=== PATIENT | female | born 1945 | race Caucasian/White ===

== ENCOUNTER → 2016-04-13 | Outpatient (CLI) | payer BC ==
[~2016-04-13] MED LIST: CHOL100010 PO; ESOM20CA PO; LEVO100T7 PO; TAFL1DRO14 OPB
--- NOTE | 2016-04-13 12:29 | DIAGNOSTIC IMAGING REPORT ---
CHEST 2 VIEWS ROUTINE CLINICAL HISTORY: Productive cough COMPARISON STUDY: Chest radiograph August 09, 2012. FINDINGS: Lung volumes are normal. Lungs are clear. There is no pneumothorax or pleural effusion. Cardiac size is normal. Mediastinal contours are normal. There is no evidence of pulmonary edema. IMPRESSION: No acute cardiopulmonary findings. Electronically signed by: Gregory Russ M.D. 04/13/2016 12:27 PM Dictated Date/Time: 04/13/2016 12:27 PM
== END | disposition home or self-care (01) ==
LOC: C.RAD 11:24
PROVIDERS: ATTEND Internal Medicine
DX: R05 Cough (principal)

== ENCOUNTER → 2016-06-08 | Outpatient (CLI) | payer BC | END | disposition home or self-care (01) | LOC: C.RDSM 13:15 | PROVIDERS: ATTEND Orthopaedic Surgery Sports Medicine | DX: M25.562 Pain in left knee (principal) ==

== ENCOUNTER → 2016-08-16 | Outpatient (CLI) | payer BC | END | disposition home or self-care (01) | LOC: C.LABSPEC 15:14 | PROVIDERS: ATTEND Internal Medicine | DX: Z12.11 Encounter for screening for malignant neoplasm of colon (principal) ==

== ENCOUNTER → 2016-09-15 | Outpatient (CLI) | payer BC ==
[2016-09-15 13:24] LABS: BASO % 0.7 %; BASO ABS # 0.03 K/uL (0-0.2); COMPLETE YES; EOS % 2.3 %; HEMATOCRIT 41.8 % (37-47); LYMPH ABS # 1.33 K/uL (1.2-3.4); MEAN CELL VOLUME 92.1 fL (80-100); MEAN CORPUSCULAR HEMOGLOBIN 31.1 pg (25-34); MEAN CORPUSCULAR HGB CONC 33.7 g/dl (32-36); MEAN PLATELET VOLUME 9.5 fL (7.4-10.4); MONO % 8.1 %; NEUT % 58.9 %; PLATELET COUNT 291 K/uL (130-400); RED BLOOD COUNT 4.54 M/uL (4.2-5.4); WHITE BLOOD COUNT 4.43 K/uL (4.8-10.8)
[2016-09-15 13:37] LABS: ALB/GLOB RATIO 1.1 (0.9-2); ALKALINE PHOSPHATASE 86 U/L (45-117); ALT/SGPT 25 U/L (12-78); AST/SGOT 16 U/L (15-37); BLOOD UREA NITROGEN 8 mg/dl (7-18); BUN/CREATININE RATIO 10.9 (10-20); CARBON DIOXIDE 27 mmol/L (21-32); CHLORIDE 109 mmol/L (98-107); CHOLESTEROL 216 mg/dl (0-200); CHOLESTEROL/HDL RATIO 2.4; CREATININE 0.78 mg/dl (0.60-1.20); GLUCOSE 84 mg/dl (70-99); HDL CHOLESTEROL 89 mg/dl; MAGNESIUM 2.7 mg/dl (1.8-2.4); POTASSIUM 4.1 mmol/L (3.5-5.1); SODIUM 142 mmol/L (136-145)
[2016-09-15 13:42] LABS: THYROID STIMULATING HORMONE 0.646 uIu/ml (0.300-4.500); TRIGLYCERIDES 85 mg/dl (0-150); VERY LOW DENSITY LIPOPROT CALC 17 mg/dl
== END | disposition home or self-care (01) ==
LOC: C.LABSPEC 12:37
PROVIDERS: ATTEND Internal Medicine
DX: Z00.01 Encounter for general adult medical examination with abnormal findings (principal); M85.80 Other specified disorders of bone density and structure, unspecified site; K58.9 Irritable bowel syndrome, unspecified; E03.9 Hypothyroidism, unspecified

== ENCOUNTER → 2017-03-14 | Outpatient (CLI) | payer BC ==
--- NOTE | 2017-03-14 15:14 | DIAGNOSTIC IMAGING REPORT ---
LEFT KNEE MRI HISTORY: LEFT KNEE PAIN COMPARISON STUDY: Left knee 06/08/2016. Left knee MRI 02/20/2014. TECHNIQUE: Multiplanar multisequence MRI of the left knee was performed according to standard department protocol without the use of contrast. FINDINGS: Menisci: The medial meniscus is intact. Truncated appearance to the body of the lateral meniscus. The anterior horn of the lateral meniscus is diminutive. Ligaments: The anterior and posterior cruciate ligaments are intact. The medial and lateral collateral ligaments are normal in appearance. Extensor mechanism: The quadriceps tendon and patellar ligament are intact. Articular cartilage and bone: No fracture or dislocation within the knee. Normal marrow signal intensity throughout the visualized osseous structures. The medial and lateral compartment cartilage spaces are maintained. There is cartilage fraying and mild cartilage thinning of the patella. Joint effusion: None. Soft tissues: Small cyst adjacent to the posterior medial aspect of the medial meniscus which favors a ganglion cyst. This measures 6 mm. IMPRESSION: 1. Diminutive appearance to the anterior horn of the lateral meniscus. There is also a truncated appearance the body of the lateral meniscus. These could represent evidence for prior meniscal tears. However, a prior partial meniscectomy could also have a similar appearance. Clinical correlation recommended. 2. Mild cartilage thinning and cartilage fraying at the patellar facet consistent with degenerative change. 3. The medial meniscus appears intact. 4. Small cyst adjacent to the posterior medial aspect of the medial meniscus which favors a ganglion cyst. This measures 6 mm. No adjacent meniscal tear identified. Electronically signed by: Eliel Haley M.D. 03/14/2017 3:13 PM Dictated Date/Time: 03/14/2017 3:06 PM
== END | disposition home or self-care (01) ==
LOC: C.MRIBC 13:40
PROVIDERS: ATTEND Family Medicine
DX: M25.562 Pain in left knee (principal); M25.362 Other instability, left knee; M23.032 Cystic meniscus, other medial meniscus, left knee

== ENCOUNTER 2022-12-26 21:04 | Inpatient (IN) ==
[2022-12-26 21:37] LABS: Basophils # (auto) 0.06 K/uL (0.00-0.20); Basophils % (auto) 0.8 %; Eosinophils # (auto) 0.09 K/uL (0.00-0.50); Eosinophils % (auto) 1.3 %; Hematocrit (blood only) 42.3 % (37.0-47.0); Hemoglobin 14.2 g/dl (12.0-16.0); Immature Granulocytes # (auto) 0.02 K/uL (0.01-0.20); Immature Granulocytes % (auto) 0.3 %; Lymphocytes # (auto) 1.62 K/uL (1.20-3.40); Lymphocytes % (auto) 22.5 %; Mean Corpuscular Hemoglobin 30.1 pg (25.0-34.0); Mean Corpuscular Hgb Conc 33.6 g/dL (32.0-36.0); Mean Corpuscular Volume 89.6 fL (80.0-100.0); Monocytes # (auto) 0.51 K/uL (0.11-0.59); Monocytes % (auto) 7.1 %; Platelet Count 295 K/uL (130-400); RDW Coefficient of Variation 13.2 % (11.5-14.5); RDW Standard Deviation 43.4 fL (36.4-46.3); Red Blood Count 4.72 M/uL (4.20-5.40)
[2022-12-26] MEDS ORDERED: ONDANSETRON INJ 2 MG/ML 2 ML VIAL ONE (21:38)
[2022-12-26] MEDS ORDERED: DROPERIDOL 5 MG/2 ML VIAL IV STA (21:58)
[2022-12-26] MEDS ORDERED: ACETAMINOPHEN 1,000 MG/100 ML VIAL IV STA (22:01)
[2022-12-26 22:02] LABS: Albumin Globulin Ratio 1.5 (0.9-2); Albumin Level 4.3 gm/dl (3.4-5.0); BUN Creatinine Ratio 18.2 (10-20); Bilirubin,Total 0.5 mg/dl (0.2-1.0); Calcium 9.2 mg/dl (8.6-10.3); Creatinine Clr Calc Pharmacy 56.1 ml/min; Est GFR (African American) 86.9 ml/min; Globulin 2.9 gm/dl (2.5-4.0); Potassium 3.7 mmol/L (3.5-5.1); Total Protein 7.2 gm/dl (6.0-8.3); Troponin I High Sensitivity 6.8 pg/ml (0-14)
[2022-12-26 22:06] LABS: Partial Thromboplastin Ratio 0.8; Partial Thromboplastin Time 23.9 Seconds (21.0-31.0); Prothrombin Time 10.9 Seconds (9.0-12.0)
[2022-12-26 22:14] LABS: iSTAT Creatinine 0.7 mg/dl (0.6-1.3); iSTAT Hemoglobin 14.6 g/dl (12.0-16.0); iSTAT Ionized Calcium 1.12 mmol/l (1.12-1.32); iSTAT Potassium 3.8 mmol/L (3.3-5.0)
--- NOTE | 2022-12-26 22:15 | Emergency Department Note ---
Impression & Plan SBO (small bowel obstruction) ED Provider Note NAME: NOLBERTO NASSAR AGE: 77 SEX: F : 1945 ARRIVES VIA: Ambulance INFORMANT: Patient, ED PROVIDER(S): Hussein Sandoval MD CHIEF COMPLAINT: Abdominal pain HPI: This is a 77-year-old male with history of previous ischemic colitis, IBS presenting for severe pain. Patient states that 10 years ago she had ischemic colitis. She had no recent recurrence, no clot or stenosis causing her ischemic colitis. Otherwise today at approximately 3 PM she noticed acute abdominal pain, crampy, sharp. Began in the midepigastrium. Radiated to the back. Otherwise no chest pain, chest breath, fever or chills. She notes that she is in severe pain and that this feels somewhat similar to her previous ischemic colitis. No other medical problem. ROS: See above HPI for pertinent positives & negatives. A total of 10 systems reviewed and were otherwise negative. PAST MEDICAL HISTORY: See Below PAST SURGICAL HISTORY: See Below FAMILY HISTORY: See Below SOCIAL HISTORY: See Below HOME MEDICATIONS: See Below ALLERGIES: See Below VITALS: See Below PHYSICAL EXAMINATION: General: Writhing on the stretcher, retching Head: Normocephalic and atraumatic Eyes: Normal inspection, extraocular muscles intact, no conjunctival pallor Ear, nose, throat: Normal external exam Neck: Normal range of motion Respiratory: Patient is in no respiratory distress, lungs clear to auscultation bilaterally Cardiovascular: RRR without murmur appreciated GI: Soft, nontender Extremities: pulses intact with good cap refills, no LE pitting edema or calf tenderness Neuro: The patient awake and alert, appropriately conversive,no focal decifits Skin: Warm, dry, and intact MEDICAL DECISION MAKING: This is a 77-year-old female with history of previous ischemic colitis, IBS presenting for severe abdominal pain. Patient has pain out of proportion to exam, concern for recurrent ischemic colitis versus mesenteric ischemia versus possible dissection however low likelihood of a dissection. Patient is profusely vomiting, she states this may be reaction to the fentanyl she got in route. She states she is not tolerant of opiates due to these persistent nausea and vomiting. We will try Zofran. If not we will try droperidol for nausea. Patient is requesting nonopiate medication at this time, will give IV Tylenol. Will give IV Toradol as well as patient symptoms not improved with IV Tylenol. Lactic acid elevated at 2.9 Patient still feels nauseous despite Zofran and droperidol., No longer retching however. Patient's CAT scan comes back with no dissection or PE but does reveal SBO. Discussed with surgical GIGI Breaux who recommends medical admission and will run this case by attending physician. Otherwise will admit to medicine under Dr. Duvall. Triage Nursing notes reviewed. Prior medical records reviewed Vital Signs: reviewed and remarkable for no significant abnormalities Differential diagnosis: Mesenteric ischemia, ischemic colitis, SBO, pancreatitis, appendicitis, dissection, PE, ACS ER treatment provided: See below Diagnostics interpreted by me: ECG: ECG independently interpreted by me with normal sinus rhythm, rate of 63, normal axis, first-degree AV block, TN 210, normal QRS, normal QTc, no ST segment elevations consistent with STEMI criteriaardiac Monitoring: An order was placed for continuous cardiac monitoring. The monitor shows a rate of 75 with sinus rhythm. Laboratory studies: As stated above and show below. Imaging studies: See below. Radiographic imaging was reviewed by myself Consultation(s): None Critical Care Note: I have personally spent 35 minutes of critical care time in the direct management of this patient. This includes bedside care, interpretation of diagnostic studies, and testing, discussion with consultants, patient, and family members, and other required patient management activities. This 35 minutes is in excess of all separately billable procedures. Past Med/Surg History Medical History (Updated 12/27/22 @ 14:33 by Hussein Sandoval MD) Hypothyroidism (acquired) Piriformis syndrome Lumbar radiculopathy Poor vision Recurrent UTI Schatzki's ring History of ischemic colitis IBS (irritable bowel syndrome) Hypothyroidism History of Graves' disease GERD (gastroesophageal reflux disease) Glaucoma Thyroid disorder Surgical History (Updated 12/27/22 @ 13:20 by Kristel Caro RN) History of bowel resection (12/27/22) Exploratory Laparotomy with Small Bowel Resection(Not Applicable) - Oliver Blanco DO History of Achilles tendon repair Rt History of back surgery History of hysterectomy with unilateral oophorectomy History of esophagogastroduodenoscopy (EGD) History of colonoscopy History of thyroidectomy, subtotal Family History Other Nausea and vomiting after administration of anesthetic agent Social History Smoking Status: Never smoker Second Hand Exposure: No; Do You Dip or Chew Tobacco: No; Tobacco Cessation Education Requested by Patient: No Hx Alcohol Use: No Hx Substance Use: No Preferred Language: Martiniquais Communication Ability: Impaired Communication Ability Comment: Glaucoma Option Trader Required: No Beliefs That Will Affect Care: None Current Living Situation: Spouse Current Living Situation Comment: [place] Other Information That Helps Us Care for You: No Feels Safe at Home: Yes Safety Concerns: Feels Safe At This Time Assistive Devices: Glasses Allergies Allergies Allergy/AdvReac Type Severity Reaction Status Date / Time nickel Allergy Intermediate Rash Verified 12/26/22 22:39 timolol Allergy Unknown Unknown Verified 12/26/22 22:39 Beta-Blockers AdvReac Severe SEVERE Verified 12/26/22 22:39 (Beta-Adrenergic Bloc HYPOTENSION Opioids - Morphine Analogues AdvReac Intermediate Vomiting Verified 12/26/22 22:39 Home Meds Home Medications Medication Instructions Recorded Confirmed levothyroxine 100 mcg tablet 100 mcg PO QAM 01/20/19 12/26/22 (Synthroid) netarsudil 0.02 %-latanoprost 1 drp OPR HS 01/20/19 12/26/22 0.005 % eye drops (Rocklatan) tafluprost (PF) 0.0015 % eye drops 1 drp OPL HS 01/20/19 12/26/22 in a dropperette (Zioptan (PF)) acetaminophen 650 mg 1,300 mg PO HS 07/17/19 12/26/22 tablet,extended release (Tylenol 8 Hour) Previous Rx's Medication Instructions Recorded nitrofurantoin macrocrystal 100 mg 100 mg PO HS #90 caps 08/23/19 capsule Results & Data (ED) Vital Signs Vital Signs - 24 hr 12/26/22 20:54 12/26/22 21:11 12/26/22 21:12 Temperature 36.6 C Temperature Source Oral Pulse Rate 67 66 Pulse Rate [Apical] Pulse Rhythm Regular Pulse Strength Normal Respiratory Rate 19 Respiratory Effort / Characteristics Non-Labored Spontaneous Respiratory Depth Normal Respiratory Pattern Regular Blood Pressure 197/74 H Blood Pressure [Right Arm] Blood Pressure Mean 115 Blood Pressure Mean [Right Arm] Blood Pressure Position Lying Pulse Oximetry 100 100 Oxygen Delivery Method Room Air Room Air Sepsis Recent Fever Within 48 Hours No Sepsis New/Unexplained Change in Mental Status No Sepsis Action Taken by Nursing No Action Required 12/27/22 00:00 12/27/22 00:23 12/27/22 00:29 Temperature Temperature Source Pulse Rate 36 L Pulse Rate [Apical] 62 Pulse Rhythm Pulse Strength Respiratory Rate 20 Respiratory Effort / Characteristics Respiratory Depth Respiratory Pattern Blood Pressure Blood Pressure [Right Arm] 144/50 H Blood Pressure Mean Blood Pressure Mean [Right Arm] 81 Blood Pressure Position Pulse Oximetry 97 96 Oxygen Delivery Method Room Air Room Air Sepsis Recent Fever Within 48 Hours Sepsis New/Unexplained Change in Mental Status Sepsis Action Taken by Nursing Laboratory Data 12/27/22 06:15 12/27/22 06:15 Lab Results 12/26/22 12/26/22 12/26/22 Range/Units 21:21 21:50 22:00 WBC 7.20 (4.8-10.8) K/ul RBC 4.72 (4.20-5.40) M/uL Hgb 14.2 (12.0-16.0) g/dl POC Hgb 14.6 (12.0-16.0) g/dl Hct 42.3 (37.0-47.0) % POC Hct 43 (37-47) % MCV 89.6 (80.0-100.0) fL MCH 30.1 (25.0-34.0) pg MCHC 33.6 (32.0-36.0) g/dL RDW Std Deviation 43.4 (36.4-46.3) fL RDW Coeff of Ana Lilia 13.2 (11.5-14.5) % Plt Count 295 (130-400) K/uL MPV 9.0 L (9.4-12.4) fL Immature Gran % (Auto) 0.3 % Neut % (Auto) 68.0 % Lymph % (Auto) 22.5 % [place] % (Auto) 7.1 % Eos % (Auto) 1.3 % Baso % (Auto) 0.8 % Neut # (Auto) 4.90 (1.40-6.50) K/uL Lymph # (Auto) 1.62 (1.20-3.40) K/uL [place] # (Auto) 0.51 (0.11-0.59) K/uL Eos # (Auto) 0.09 (0.00-0.50) K/uL Baso # (Auto) 0.06 (0.00-0.20) K/uL Immature Gran # (Auto) 0.02 (0.01-0.20) K/uL PT 10.9 (9.0-12.0) Seconds INR 1.0 (0.9-1.1) APTT 23.9 (21.0-31.0) Seconds PTT Ratio 0.8 POC Sodium 136 (135-144) mmol/L Sodium 133 L (136-145) mmol/L POC Potassium 3.8 (3.3-5.0) mmol/L Potassium 3.7 (3.5-5.1) mmol/L POC Chloride 101 (101-112) mmol/L Chloride 101 (98-107) mmol/L Carbon Dioxide 22 (21-32) mmol/L POC Total CO2 23 L (24-31) mmol/L Anion Gap 10 (3-11) POC Anion Gap 16.0 (16-25) mmol/L POC BUN 12 (7-18) mg/dl BUN 14 (6-23) mg/dl Creatinine 0.77 (0.6-1.2) mg/dl POC Creatinine 0.7 (0.6-1.3) mg/dl Est Cr Clr Drug Dosing 56.1 ml/min Est GFR ( Amer) 86.9 ml/min Est GFR (Non-Af Amer) 75.0 ml/min BUN/Creatinine Ratio 18.2 (10-20) Glucose 133 H (70-99(Fasting)) mg/dl POC Glucose (other) 129 H (70-99) mg/dl Lactate 2.9 H* (0.4-2.0) mmol/L Calcium 9.2 (8.6-10.3) mg/dl POC Ioniz Calcium Annabella 1.12 (1.12-1.32) mmol/l Total Bilirubin 0.5 (0.2-1.0) mg/dl AST 17 (13-39) U/L ALT 10 (7-52) U/L Alkaline Phosphatase 97 (34-104) U/L Troponin I High Sens 6.8 (0-14) pg/ml Total Protein 7.2 (6.0-8.3) gm/dl Albumin 4.3 (3.4-5.0) gm/dl Globulin 2.9 (2.5-4.0) gm/dl Albumin/Globulin Ratio 1.5 (0.9-2) Lipase 29 (11-82) U/L 12/26/22 Range/Units 23:51 WBC (4.8-10.8) K/ul RBC (4.20-5.40) M/uL Hgb (12.0-16.0) g/dl POC Hgb (12.0-16.0) g/dl Hct (37.0-47.0) % POC Hct (37-47) % MCV (80.0-100.0) fL MCH (25.0-34.0) pg MCHC (32.0-36.0) g/dL RDW Std Deviation (36.4-46.3) fL RDW Coeff of Ana Lilia (11.5-14.5) % Plt Count (130-400) K/uL MPV (9.4-12.4) fL Immature Gran % (Auto) % Neut % (Auto) % Lymph % (Auto) % [place] % (Auto) % Eos % (Auto) % Baso % (Auto) % Neut # (Auto) (1.40-6.50) K/uL Lymph # (Auto) (1.20-3.40) K/uL [place] # (Auto) (0.11-0.59) K/uL Eos # (Auto) (0.00-0.50) K/uL Baso # (Auto) (0.00-0.20) K/uL Immature Gran # (Auto) (0.01-0.20) K/uL PT (9.0-12.0) Seconds INR (0.9-1.1) APTT (21.0-31.0) Seconds PTT Ratio POC Sodium (135-144) mmol/L Sodium (136-145) mmol/L POC Potassium (3.3-5.0) mmol/L Potassium (3.5-5.1) mmol/L POC Chloride (101-112) mmol/L Chloride (98-107) mmol/L Carbon Dioxide (21-32) mmol/L POC Total CO2 (24-31) mmol/L Anion Gap (3-11) POC Anion Gap (16-25) mmol/L POC BUN (7-18) mg/dl BUN (6-23) mg/dl Creatinine (0.6-1.2) mg/dl POC Creatinine (0.6-1.3) mg/dl Est Cr Clr Drug Dosing ml/min Est GFR ( Amer) ml/min Est GFR (Non-Af Amer) ml/min BUN/Creatinine Ratio (10-20) Glucose (70-99(Fasting)) mg/dl POC Glucose (other) (70-99) mg/dl Lactate 1.4 (0.4-2.0) mmol/L Calcium (8.6-10.3) mg/dl POC Ioniz Calcium Annabella (1.12-1.32) mmol/l Total Bilirubin (0.2-1.0) mg/dl AST (13-39) U/L ALT (7-52) U/L Alkaline Phosphatase (34-104) U/L Troponin I High Sens (0-14) pg/ml Total Protein (6.0-8.3) gm/dl Albumin (3.4-5.0) gm/dl Globulin (2.5-4.0) gm/dl Albumin/Globulin Ratio (0.9-2) Lipase (11-82) U/L Administered Medications Acetaminophen (Acetaminophen 1000 Mg/100 Ml Iv) 1,000 mg IV Q8H PRN PRN Reason: Pain or Fever Stop: 12/30/22 03:09 Last Admin: 12/27/22 04:16 Dose: 1,000 mg Documented By: DIO Lactated Ringer's (Lr) 1,000 mls @ 15 mls/hr IV .Q24H [facility] Stop: 01/26/23 10:14 Last Infusion: 12/27/22 10:53 Dose: Infused Documented By: Admin: 12/27/22 10:37 Dose: 15 mls/hr Documented By: ALBARO Miscellaneous (Netarsudil-Latanoprost [Rocklatan] - Order Awaiting Action) 1 each N/A QS [facility] Stop: 01/26/23 07:59 Last Admin: 12/27/22 07:35 Dose: Not Given Documented By: ES Miscellaneous (Tafluprost (Pf) [Zioptan (Pf)] - Order Awaiting Action) 1 each N/A QS [facility] Stop: 01/26/23 07:59 Last Admin: 12/27/22 07:35 Dose: Not Given Documented By: TRI Morphine Sulfate (Morphine Sulfate 2 Mg/Ml Carp) 2 mg IV Q4H PRN PRN Reason: Severe Pain (Scale 7, 8, 9,10) Stop: 01/10/23 05:01 Last Admin: 12/27/22 08:45 Dose: 2 mg Documented By: ALEXIS Ondansetron HCl (Ondansetron Inj 2 Mg/Ml 2 Ml Vial) 4 mg IV Q6H PRN PRN Reason: Nausea And Vomiting Stop: 01/26/23 00:40 Last Admin: 12/27/22 08:45 Dose: 4 mg Documented By: Admin: 12/27/22 00:58 Dose: 4 mg Documented By: PHAM Discontinued Medications Droperidol (Droperidol 5 Mg/2 Ml Vial) 1.25 mg IV ONE STA Stop: 12/26/22 21:59 Last Admin: 12/26/22 22:04 Dose: 1.25 mg Documented By: KAREN Acetaminophen (Ofirmev) 1,000 mg in 100 mls @ 400 mls/hr IV NOW STA Stop: 12/26/22 22:15 Last Infusion: 12/26/22 22:51 Dose: Infused Documented By: Admin: 12/26/22 22:11 Dose: 400 mls/hr Documented By: KAREN Sodium Chloride (Nss) 1,000 mls @ 999 mls/hr IV .Q1H1M ONE Stop: 12/27/22 01:03 Last Infusion: 12/27/22 01:40 Dose: Infused Documented By: Admin: 12/27/22 00:21 Dose: 999 mls/hr Documented By: PHAM Sodium Chloride (Nss) 1,000 mls @ 80 mls/hr IV .[id number] [facility] Stop: 01/26/23 00:44 Last Admin: 12/27/22 04:20 Dose: 80 mls/hr Documented By: DIO Piperacillin Sod/Tazobactam Sod (Zosyn) 4.5 gm in 100 mls @ 200 mls/hr IV 0415 ONE Stop: 12/27/22 04:44 Last Infusion: 12/27/22 04:54 Dose: Infused Documented By: Admin: 12/27/22 04:15 Dose: 200 mls/hr Documented By: DIO Ioversol (Optiray 320 500ml) 116 ml IV ONCE ONE Stop: 12/26/22 22:52 Last Admin: 12/26/22 22:52 Dose: 116 ml Documented By: DOMINICK Ketorolac Tromethamine (Ketorolac Tromethamine 15 Mg/Ml Vial) 10 mg IV NOW ONE Stop: 12/27/22 05:01 Last Admin: 12/27/22 05:30 Dose: 10 mg Documented By: DIO Morphine Sulfate (Morphine Sulfate 2 Mg/Ml Carp) 2 mg IV NOW STA Stop: 12/26/22 23:45 Last Admin: 12/27/22 00:18 Dose: 2 mg Documented By: PHAM Ondansetron HCl (Ondansetron Inj 2 Mg/Ml 2 Ml Vial) Confirm Administered Dose 4 mg .ROUTE .STK-MED ONE Stop: 12/26/22 21:39 Last Admin: 12/26/22 22:00 Dose: 4 mg Documented By: KAREN Imaging Data Radiologist's Impression: Chest X-Ray 12/26/22 21:17 XR chest 1V not portable CLINICAL HISTORY: Chest pain, nonspecific TECHNIQUE: Single frontal radiograph of the chest was obtained. Comparison: Comparison is made to chest radiograph 04/07/2009 FINDINGS: No lines and tubes are seen. Calcified aortic knob is seen. The lungs are clear. No evidence of pleural effusion or pneumothorax. IMPRESSION: No acute chest disease. ACT 112: Negative or not required by law. Electronically signed by: Kvng Castañeda M.D. 12/27/2022 7:40 AM Discharge Plan Visit Data Chief Complaint: Cardiac Assessment Stated Complaint: TEARING PAIN FROM CHEST TO BACK ED Provider: Hussein Sandoval Discharge Problem: SBO (small bowel obstruction) Patient Disposition: Admitted As Inpatient Discharge Instructions Interventions: ED Discharge Assessment Last Done: 12/27/22 03:31
[2022-12-26] MEDS ORDERED: OPTIRAY 320 500ml IV ONE (22:51)
--- NOTE | 2022-12-26 23:26 | CT Scan Report ---
Exam(s): CTA CHEST W/WO Contrast IV Amt: 116 ml optiray 320 EXAM: CT Angiography Chest Without and With Intravenous Contrast CLINICAL HISTORY: Reason for exam: Dissection. TECHNIQUE: Axial computed tomographic angiography images of the chest without and with intravenous contrast. CTDI is 16.98 mGy and DLP is 1523.9 mGy-cm. Automated exposure control was utilized for the study. A dose lowering technique was utilized adhering to the principles of ALARA. MIP reconstructed images were created and reviewed. CONTRAST: Patient received 116 ml optiray 320 of IV contrast COMPARISON: No relevant prior studies available. FINDINGS: Pulmonary arteries: Unremarkable. No pulmonary embolism. Aorta: No acute findings. No thoracic aortic aneurysm. Lungs: Unremarkable. No mass. No consolidation. Pleural space: Unremarkable. No significant effusion. No pneumothorax. Heart: Unremarkable. No cardiomegaly. No significant pericardial effusion. No evidence of RV dysfunction. Bones/joints: No acute fracture. No dislocation. Soft tissues: Unremarkable. Lymph nodes: Unremarkable. No enlarged lymph nodes. IMPRESSION: No acute findings. No evidence of thoracic aortic aneurysm or dissection. No pulmonary emboli. No acute cardiopulmonary process. Electronically signed by: Juve Link MD 12/26/22 23:25 PM
--- NOTE | 2022-12-26 23:32 | CT Scan Report ---
Exam(s): CTA ABDOMEN + PELVIS With Contrast IV Amt: 116 ml optiray 320 EXAM: CT Angiography Abdomen and Pelvis With Intravenous Contrast CLINICAL HISTORY: Reason for exam: dissection. TECHNIQUE: Axial computed tomographic angiography images of the abdomen and pelvis with intravenous contrast. CTDI is 16.98 mGy and DLP is 1523.9 mGy-cm. Automated exposure control was utilized for the study. A dose lowering technique was utilized adhering to the principles of ALARA. MIP reconstructed images were created and reviewed. CONTRAST: Patient received 116 ml optiray 320 of IV contrast COMPARISON: No relevant prior studies available. FINDINGS: VASCULATURE: Aorta: No acute findings. No abdominal aortic aneurysm. No dissection. Celiac trunk and mesenteric arteries: No acute findings. No occlusion or significant stenosis. Renal arteries: No acute findings. No occlusion or significant stenosis. Iliac arteries: No acute findings. No occlusion or significant stenosis. Lung bases: Unremarkable. No mass. No consolidation. ABDOMEN: Liver: Unremarkable. No mass. Gallbladder and bile ducts: Unremarkable. No calcified stones. No ductal dilation. Pancreas: Unremarkable. No ductal dilation. No mass. Spleen: Unremarkable. No splenomegaly. Adrenals: Unremarkable. No mass. Kidneys and ureters: Unremarkable. No hydronephrosis. No solid mass. Stomach and bowel: Multiple dilated loops of fluid-filled small bowel with some loose measuring over 3 cm in diameter. There is an abrupt transition in the mid pelvis just to the left of midline. This is consistent with small bowel obstruction. No bowel wall thickening. Diverticulosis without diverticulitis. PELVIS: Appendix: No findings to suggest acute appendicitis. Bladder: Unremarkable. No mass. Reproductive: Unremarkable as visualized. ABDOMEN and PELVIS: Intraperitoneal space: Unremarkable. Small amount of free fluid. No free air. Bones/joints: No acute fracture. No dislocation. Soft tissues: Unremarkable. Lymph nodes: Unremarkable. No enlarged lymph nodes. IMPRESSION: Small bowel obstruction. No evidence of abdominal aortic aneurysm or dissection. Electronically signed by: Juve Link MD 12/26/22 23:32 PM
[2022-12-26] MEDS ORDERED: MoRPHine SULFATE 2 MG/ML CARP IV STA (23:44)
[2022-12-27] MEDS ORDERED: SODIUM CHLORIDE 0.9% 1,000 ML IV ONE (00:03)
--- NOTE | 2022-12-27 00:30 | Surgery Consultation ---
Date of Consultation December 27, 2022 Assessment & Plan (1) Small bowel obstruction: I discussed with the treating emergency room physician and the patient is going to be admitted on the hospitalist service. From a surgical perspective we recommend proceeding as follows: Provide analgesics Provide antiemetics Provide IV fluid for hydration Follow serial labs I discussed the potential of using an NG tube with this patient. She is uncertain if she would like to try this modality. At the present time her abdomen is soft and nondistended. She also has not had any emesis in over an hour. In addition, during my encounter with the patient she was able to pass a small amount of flatus. We therefore have elected to hold on placing an NG tube at this time but I did discuss with the patient if she has any worsening of her clinical exam or has persistent nausea and vomiting we will need to rethink the use of this modality and she expressed her understanding. I suspect the patient's small bowel obstruction is likely on the basis of adhesions from previous surgery and outlined with her the rationale for treatment with conservative treatment plan as noted above and she expressed her understanding. At the present time the patient is noted to have no leukocytosis or fever. She also does not have tachycardia or evidence of acute kidney injury. Her lactic acid level has normalized. Additional recommendations will be forthcoming based on her clinical course as it unfolds Supervising Physician Co-Signing Physician Notes I personally saw and evaluated the patient with Arsh Breaux PA-C and agree with the assessment and plan. 77-year-old female with adhesive small bowel obstruction She is being admitted to the medical service We will keep her n.p.o. No need for NG tube at this time Her CT images and results were personally viewed and interpreted by myself, no definitive signs at this point of ischemic bowel We will follow along and monitor her symptoms and abdominal exam History of Present Illness Reason for Consultation: . Small bowel obstruction History of Present Illness This is a 77-year-old female who presented the emergency department [facility] secondary to sudden onset of upper abdominal pain. She notes that the pain is located primarily just superior to her umbilicus in the epigastric area with some radiation to her back. She notes that the pain is improved if she lies still and also improved somewhat after she has a bout of emesis. She notes that the pain is worse with certain movements. She has not had any fevers, shakes, or chills. Patient further reports that she has had a history of ischemic colitis approximately 10 years ago that was treated successfully in a conservative manner without any surgical intervention. She notes that she had a colonoscopy after she recovers from her ischemic colitis and to the best of her knowledge there were no concerning findings on this study. Patient reports that she did have a bowel movement at approximate 2:00 PM today which preceded the onset of her abdominal pain and notes that the bowel movement was normal for her. She says she has been passing a small amount of flatus. She has had prior abdominal surgery in the form of a hysterectomy. She notes that she has never had a small bowel obstruction in the past Since arrival to the hospital this patient has had labs and imaging which independent reviewed. A chest x-ray did not show any evidence of pleural effusions or pneumonia. She also had a CT angiogram of her chest abdomen pelvis. The chest portion of this study did not show any evidence of aortic aneurysm or dissection. There is also no evidence of pulmonary emboli. The abdominal portion of this study showed the patient had multiple dilated loops of fluid-filled small bowel with abrupt transition point in the mid pelvis just to the left of midline consistent with a small bowel obstruction. There is no bowel wall thickening. There is no intraperitoneal free air. There is a small amount of free fluid. Labs include a CBC her white blood cell count, hemoglobin, hematocrit, platelet count were normal. Coagulation studies were noted to be normal. Chemistry profile showed sodium was 133 with a potassium of 3.7. BUN and creatinine were both normal. Patient initially had a lactic acid level that was elevated at 2.9 and this was checked approximately 2 hours later which had normalized to 1.4. There is no elevation of patient's LFTs or lipase. At the time of my interview patient noted that she continued to have some abdominal pain but was in no distress Allergies Allergy/AdvReac Type Severity Reaction Status Date / Time nickel Allergy Intermediate Rash Verified 12/26/22 22:39 timolol Allergy Unknown Unknown Verified 12/26/22 22:39 Beta-Blockers AdvReac Severe SEVERE Verified 12/26/22 22:39 (Beta-Adrenergic Bloc HYPOTENSION Opioids - Morphine Analogues AdvReac Intermediate Vomiting Verified 12/26/22 22:39 Home Medications Medication Instructions Recorded Confirmed Type levothyroxine 100 mcg tablet 100 mcg PO QAM 01/20/19 12/26/22 History (Synthroid) netarsudil 0.02 %-latanoprost 1 drp OPR HS 01/20/19 12/26/22 History 0.005 % eye drops (Rocklatan) tafluprost (PF) 0.0015 % eye drops 1 drp OPL HS 01/20/19 12/26/22 History in a dropperette (Zioptan (PF)) acetaminophen 650 mg 1,300 mg PO HS 07/17/19 12/26/22 History tablet,extended release (Tylenol 8 Hour) nitrofurantoin macrocrystal 100 mg 100 mg PO HS #90 caps 08/23/19 12/26/22 Rx capsule Patient History Medical History (Updated 12/27/22 @ 03:52 by Az Hargrove MD) Hypothyroidism (acquired) Piriformis syndrome Lumbar radiculopathy Poor vision Recurrent UTI Schatzki's ring History of ischemic colitis IBS (irritable bowel syndrome) Hypothyroidism History of Graves' disease GERD (gastroesophageal reflux disease) Glaucoma Thyroid disorder Surgical History History of Achilles tendon repair Rt History of back surgery History of hysterectomy with unilateral oophorectomy History of esophagogastroduodenoscopy (EGD) History of colonoscopy History of thyroidectomy, subtotal Family History Other Nausea and vomiting after administration of anesthetic agent Social History Smoking Status: Never smoker Second Hand Exposure: No; Do You Dip or Chew Tobacco: No; Hx Alcohol Use: No Hx Substance Use: No Preferred Language: Armenian Communication Ability: Impaired Communication Ability Comment: Glaucoma 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: No Beliefs That Will Affect Care: None Current Living Situation: Spouse Current Living Situation Comment: Ami Feels Safe at Home: Yes Assistive Devices: Glasses Review of Systems Constitutional: no fever and no chills Eyes: + corrective lenses Ear, Nose, Mouth, Throat: no hearing loss Respiratory: no dyspnea Cardiovascular: no chest pain Gastrointestinal: as per Subjective / HPI Genitourinary: no dysuria Musculoskeletal: no back pain Integumentary: no rash Neurologic: no localized weakness Physical Exam Constitutional: well developed and well nourished; no acute distress Eyes: no conjunctival abnormality Wears glasses ENMT: Ears: no hearing impairment and no external ear abnormality Mouth: no oropharynx abnormality Mucous membranes are moist Neck: trachea midline Respiratory: normal respiratory effort; no respiratory distress and no labored breathing Cardiovascular: Rate/Rhythm: regular rate and regular rhythm Vessels: dorsalis pedis pulses present and radial pulses present Gastrointestinal (Abdomen): Patient's abdomen is soft and it is nondistended. It is nonrigid. Bowel sounds are present and normoactive. There is no rebound tenderness or guarding. Patient did have pain with palpation greatest in the periumbilical region patient did have a well-healed vertical scar inferior to her umbilicus to that she noted is from a previous hysterectomy Musculoskeletal: No calf tenderness. No lower extremity edema Skin: no rashes Neurologic: Patient is able move all 4 extremities and follows simple commands without noted focal deficit Psychiatric: A+Ox3, euthymic affect Results & Data Vital Signs (Past 12 Hours) Vital Signs Temp Pulse Resp BP Pulse Ox O2 Del Method 12/26/22 21:12 66 12/26/22 21:11 36.6 C 67 19 197/74 H 100 Room Air 12/26/22 20:54 100 Room Air PG Care Time/CCT Total # of Minutes Spent Total Time Spent with Patient: Total time spent is greater than 50% in coordination of care (as documented) at patient's floor/unit and/or counseling patient: Coding Level of Care Code 59829 INT INP/OBS CARE 3/75MIN Diagnoses Small bowel obstruction K56.609
[2022-12-27] MEDS ORDERED: SODIUM CHLORIDE 0.9% 1,000 ML IV SCH (00:45)
--- NOTE | 2022-12-27 00:57 | History & Physical Report ---
Date of Service December 27, 2022 Assessment & Plan (1) Small bowel obstruction: (2) Hypothyroidism (acquired): (3) History of ischemic colitis: Plan Small bowel obstruction/history of ischemic colitis- NPO Zofran 4 mg IV every 6 hours as needed Pantoprazole 40 mg IV daily Zosyn 4.5 g IV every 8 hours NSS at 80 mils per hour Acetaminophen 1 g IV every 8 hours as needed for mild pain or fever No signs of ischemia on CT CTA chest negative for PE General surgery has already seen the patient while in the ED Elevated blood pressure without diagnosis of hypertension- Hydralazine 10 mg IV every 4 hours as needed for systolic blood pressure greater than 160 Hypothyroidism- Okay to hold levothyroxine for couple days until no longer having nausea and vomiting History of Present Illness Chief Complaint: The patient presents to the emergency department with complaint of acute onset of crampy sharp abdominal pain around 3:00 this afternoon, that began in her epigastric area and radiated through to her back. Primary Care Provider: Carlos Soliman MD The patient is a 77-year-old female with a past medical history including p iriformis syndrome, glaucoma, lumbar radiculopathy, gross hematuria, urine tract infection, hypothyroidism and history of ischemic colitis. She presents to the emergency department with symptoms as noted above, which she reports are similar to her previous episode of ischemic colitis about 10 years ago. She did have a small volume of emesis while in the emergency department this evening. She de nies any recent travels or sick exposures. She denies any recent use of antibiotics or new supplements Allergies Allergy/AdvReac Type Severity Reaction Status Date / Time nickel Allergy Intermediate Rash Verified 12/26/22 22:39 timolol Allergy Unknown Unknown Verified 12/26/22 22:39 Beta-Blockers AdvReac Severe SEVERE Verified 12/26/22 22:39 (Beta-Adrenergic Bloc HYPOTENSION Opioids - Morphine Analogues AdvReac Intermediate Vomiting Verified 12/26/22 22:39 Home Medications Medication Instructions Recorded Confirmed Type levothyroxine 100 mcg tablet 100 mcg PO QAM 01/20/19 12/26/22 History (Synthroid) netarsudil 0.02 %-latanoprost 1 drp OPR HS 01/20/19 12/26/22 History 0.005 % eye drops (Rocklatan) tafluprost (PF) 0.0015 % eye drops 1 drp OPL HS 01/20/19 12/26/22 History in a dropperette (Zioptan (PF)) acetaminophen 650 mg 1,300 mg PO HS 07/17/19 12/26/22 History tablet,extended release (Tylenol 8 Hour) nitrofurantoin macrocrystal 100 mg 100 mg PO HS #90 caps 08/23/19 12/26/22 Rx capsule Past Med/Surg History Medical History (Updated 12/27/22 @ 03:52 by Az Hargrove MD) Hypothyroidism (acquired) Piriformis syndrome Lumbar radiculopathy Poor vision Recurrent UTI Schatzki's ring History of ischemic colitis IBS (irritable bowel syndrome) Hypothyroidism History of Graves' disease GERD (gastroesophageal reflux disease) Glaucoma Thyroid disorder Surgical History History of Achilles tendon repair Rt History of back surgery History of hysterectomy with unilateral oophorectomy History of esophagogastroduodenoscopy (EGD) History of colonoscopy History of thyroidectomy, subtotal Family History Other Nausea and vomiting after administration of anesthetic agent Social History Smoking Status: Never smoker Second Hand Exposure: Yes (in the workplace); Do You Dip or Chew Tobacco: No; Hx Alcohol Use: Yes Hx Substance Use: No Preferred Language: Latvian Communication Ability: Effective Primary Special Educator Required: No Beliefs That Will Affect Care: None Current Living Situation: Spouse Feels Safe at Home: Yes Assistive Devices: Glasses and Walker Review of Systems Review of Systems: The patient denies palpitations, shortness of breath, dyspnea on exertion, cough, lower extremity swelling, sore throat, fevers, chills, sweats, diarrhea , constipation, blood in urine or stool, dysuria, urinary frequency or urgency, lightheadedness, dizziness, headache, memory loss, loss of consciousness, rash, abnormal bruising or bleeding, imbalance, focal or generalized weakness, numbness or tingling in arms or legs, generalized arthralgias or myalgias, back or neck pain, or night sweats. The review of systems is otherwise negative other than for that already noted above, and at least 10 systems have been reviewed. Physical Exam Physical Exam: The patient is awake, alert and oriented 3, well developed and well nourished, normocephalic and atraumatic, lying in bed and in no acute distress. HEENT--PERRL, EOMI, mucous membranes and oropharynx dry. Neck--supple. No JVD. No bruits. Thyroid normal, trachea midline, no adenopathy. Heart--normal S1 and S2. No murmurs, rubs or gallops. Lungs--clear bilaterally, no respiratory distress, no accessory muscle use. Abdomen--normal bowel sounds and soft. Generalized tenderness. Nondistended, no hernias or masses, no organomegaly. Extremities--no cyanosis or clubbing. No edema. Dermatologic--normal skin turgor, normal color, no abnormal lymph nodes, no ra sh. Neurologic--cranial nerves II through XII grossly intact. Rheumatologic--normal range of motion. Psychiatric--normal affect. Results & Data Results & Data Vital Signs (Past 12 Hours) Vital Signs Temp Pulse Pulse Resp BP BP Pulse Ox 12/27/22 00:29 96 12/27/22 00:23 36 L 12/27/22 00:00 62 20 144/50 H 97 12/26/22 21:12 66 12/26/22 21:11 36.6 C 67 19 197/74 H 100 12/26/22 20:54 100 O2 Del Method 12/27/22 00:29 Room Air 12/27/22 00:23 12/27/22 00:00 Room Air 12/26/22 21:12 12/26/22 21:11 Room Air 12/26/22 20:54 Room Air Laboratory Results Laboratory Results WBC 7.20 K/ul (4.8-10.8) 12/26/22 21:21 RBC 4.72 M/uL (4.20-5.40) 12/26/22 21:21 Hgb 14.2 g/dl (12.0-16.0) 12/26/22 21:21 POC Hgb 14.6 g/dl (12.0-16.0) 12/26/22 22:00 Hct 42.3 % (37.0-47.0) 12/26/22 21:21 POC Hct 43 % (37-47) 12/26/22 22:00 MCV 89.6 fL (80.0-100.0) 12/26/22 21: MCH 30.1 pg (25.0-34.0) 12/26/22 21: MCHC 33.6 g/dL (32.0-36.0) 12/26/22 21: RDW Std Deviation 43.4 fL (36.4-46.3) 12/26/22 21: RDW Coeff of Ana Lilia 13.2 % (11.5-14.5) 12/26/22 21: Plt Count 295 K/uL (130-400) 12/26/22 21: MPV 9.0 fL (9.4-12.4) L 12/26/22 21: Immature Gran % (Auto) 0.3 % 12/26/22 21: Neut % (Auto) 68.0 % 12/26/22 21: Lymph % (Auto) 22.5 % 12/26/22 21: [place] % (Auto) 7.1 % 12/26/22 21: Eos % (Auto) 1.3 % 12/26/22 21: Baso % (Auto) 0.8 % 12/26/22 21: Neut # (Auto) 4.90 K/uL (1.40-6.50) 12/26/22 21: Lymph # (Auto) 1.62 K/uL (1.20-3.40) 12/26/22 21: [place] # (Auto) 0.51 K/uL (0.11-0.59) 12/26/22 21: Eos # (Auto) 0.09 K/uL (0.00-0.50) 12/26/22 21: Baso # (Auto) 0.06 K/uL (0.00-0.20) 12/26/22 21: Immature Gran # (Auto) 0.02 K/uL (0.01-0.20) 12/26/22 21: PT 10.9 Seconds (9.0-12.0) 12/26/22 21: INR 1.0 (0.9-1.1) 12/26/22 21: APTT 23.9 Seconds (21.0-31.0) 12/26/22 21: PTT Ratio 0.8 12/26/22 21:21 POC Sodium 136 mmol/L (135-144) 12/26/22 22:00 Sodium 133 mmol/L (136-145) L 12/26/22 21:21 POC Potassium 3.8 mmol/L (3.3-5.0) 12/26/22 22:00 Potassium 3.7 mmol/L (3.5-5.1) 12/26/22 21:21 POC Chloride 101 mmol/L (101-112) 12/26/22 22:00 Chloride 101 mmol/L (98-107) 12/26/22 21:21 Carbon Dioxide 22 mmol/L (21-32) 12/26/22 21:21 POC Total CO2 23 mmol/L (24-31) L 12/26/22 22:00 Anion Gap 10 (3-11) 12/26/22 21:21 POC Anion Gap 16.0 mmol/L (16-25) 12/26/22 22:00 POC BUN 12 mg/dl (7-18) 12/26/22 22:00 BUN 14 mg/dl (6-23) 12/26/22 21:21 Creatinine 0.77 mg/dl (0.6-1.2) 12/26/22 21: POC Creatinine 0.7 mg/dl (0.6-1.3) 12/26/22 22:00 Est Cr Clr Drug Dosing 56.1 ml/min 12/26/22 21:21 Est GFR ( Amer) 86.9 ml/min 12/26/22 21:21 Est GFR (Non-Af Amer) 75.0 ml/min 12/26/22 21:21 BUN/Creatinine Ratio 18.2 (10-20) 12/26/22 21:21 Glucose 133 mg/dl (70-99(Fasting)) H 12/26/22 21:21 POC Glucose (other) 129 mg/dl (70-99) H 12/26/22 22:00 Lactate 1.4 mmol/L (0.4-2.0) 12/26/22 23:51 Calcium 9.2 mg/dl (8.6-10.3) 12/26/22 21:21 POC Ioniz Calcium Annabella 1.12 mmol/l (1.12-1.32) 12/26/22 22:00 Total Bilirubin 0.5 mg/dl (0.2-1.0) 12/26/22 21:21 AST 17 U/L (13-39) 12/26/22 21:21 ALT 10 U/L (7-52) 12/26/22 21:21 Alkaline Phosphatase 97 U/L (34-104) 12/26/22 21:21 Troponin I High Sens 6.8 pg/ml (0-14) 12/26/22 21:21 Total Protein 7.2 gm/dl (6.0-8.3) 12/26/22 21:21 Albumin 4.3 gm/dl (3.4-5.0) 12/26/22 21:21 Globulin 2.9 gm/dl (2.5-4.0) 12/26/22 21:21 Albumin/Globulin Ratio 1.5 (0.9-2) 12/26/22 21:21 Lipase 29 U/L (11-82) 12/26/22 21:21 Impressions Abdomen/Pelvis CTA 12/26/22 21:39 Exam(s): CTA ABDOMEN + PELVIS With Contrast IV Amt: 116 ml optiray 320 EXAM: CT Angiography Abdomen and Pelvis With Intravenous Contrast CLINICAL HISTORY: Reason for exam: dissection. TECHNIQUE: Axial computed tomographic angiography images of the abdomen and pelvis with intravenous contrast. CTDI is 16.98 mGy and DLP is 1523.9 mGy-cm. Automated exposure control was utilized for the study. A dose lowering technique was utilized adhering to the principles of ALARA. MIP reconstructed images were created and reviewed. CONTRAST: Patient received 116 ml optiray 320 of IV contrast COMPARISON: No relevant prior studies available. FINDINGS: VASCULATURE: Aorta: No acute findings. No abdominal aortic aneurysm. No dissection. Celiac trunk and mesenteric arteries: No acute findings. No occlusion or significant stenosis. Renal arteries: No acute findings. No occlusion or significant stenosis. Iliac arteries: No acute findings. No occlusion or significant stenosis. Lung bases: Unremarkable. No mass. No consolidation. ABDOMEN: Liver: Unremarkable. No mass. Gallbladder and bile ducts: Unremarkable. No calcified stones. No ductal dilation. Pancreas: Unremarkable. No ductal dilation. No mass. Spleen: Unremarkable. No splenomegaly. Adrenals: Unremarkable. No mass. Kidneys and ureters: Unremarkable. No hydronephrosis. No solid mass. Stomach and bowel: Multiple dilated loops of fluid-filled small bowel with some loose measuring over 3 cm in diameter. There is an abrupt transition in the mid pelvis just to the left of midline. This is consistent with small bowel obstruction. No bowel wall thickening. Diverticulosis without diverticulitis. PELVIS: Appendix: No findings to suggest acute appendicitis. Bladder: Unremarkable. No mass. Reproductive: Unremarkable as visualized. ABDOMEN and PELVIS: Intraperitoneal space: Unremarkable. Small amount of free fluid. No free air. Bones/joints: No acute fracture. No dislocation. Soft tissues: Unremarkable. Lymph nodes: Unremarkable. No enlarged lymph nodes. IMPRESSION: Small bowel obstruction. No evidence of abdominal aortic aneurysm or dissection. Electronically signed by: Juve Link MD 12/26/22 23:32 PM Chest CTA 12/26/22 21:39 Exam(s): CTA CHEST W/WO Contrast IV Amt: 116 ml optiray 320 EXAM: CT Angiography Chest Without and With Intravenous Contrast CLINICAL HISTORY: Reason for exam: Dissection. TECHNIQUE: Axial computed tomographic angiography images of the chest without and with intravenous contrast. CTDI is 16.98 mGy and DLP is 1523.9 mGy-cm. Automated exposure control was utilized for the study. A dose lowering technique was utilized adhering to the principles of ALARA. MIP reconstructed images were created and reviewed. CONTRAST: Patient received 116 ml optiray 320 of IV contrast COMPARISON: No relevant prior studies available. FINDINGS: Pulmonary arteries: Unremarkable. No pulmonary embolism. Aorta: No acute findings. No thoracic aortic aneurysm. Lungs: Unremarkable. No mass. No consolidation. Pleural space: Unremarkable. No significant effusion. No pneumothorax. Heart: Unremarkable. No cardiomegaly. No significant pericardial effusion. No evidence of RV dysfunction. Bones/joints: No acute fracture. No dislocation. Soft tissues: Unremarkable. Lymph nodes: Unremarkable. No enlarged lymph nodes. IMPRESSION: No acute findings. No evidence of thoracic aortic aneurysm or dissection. No pulmonary emboli. No acute cardiopulmonary process. Electronically signed by: Juve Link MD 12/26/22 23:25 PM Code Status & VTE Plan Code Status Full code VTE Prophylaxis Plan VTE Prophylaxis will be ordered: Yes PG Care Time/CCT Total # of Minutes Spent Total Time Spent with Patient: Total time spent is greater than 50% in coordination of care (as documented) at patient's floor/unit and/or counseling patient: Coding Level of Care Code 58981 INT INP/OBS CARE MIN Diagnoses Small bowel obstruction K56.609 Hypothyroidism (acquired) E03.9 History of ischemic colitis Z87.19
[2022-12-27] MEDS: ONDANSETRON INJ 2 MG/ML 2 ML VIAL IV PRN ×2 (00:58→08:45)
[2022-12-27] MEDS ORDERED: hydrALAZINE HCL 20 MG/ML VIAL IV PRN (03:10)
[2022-12-27] MEDS ORDERED: PIPERACILLIN/TAZOBACTAM 4.5 GM/100 ML BAG IV ONE (04:15)
[2022-12-27] MEDS: ACETAMINOPHEN 1000 MG/100 ML IV IV PRN ×2 (04:16→21:09)
[2022-12-27] MEDS ORDERED: KETOROLAC TROMETHAMINE 15 MG/ML VIAL IV ONE (05:00)
[2022-12-27 06:38] LABS: Hematocrit (blood only) 41.5 % (37.0-47.0); Hemoglobin 14.4 g/dl (12.0-16.0); Mean Corpuscular Hemoglobin 30.1 pg (25.0-34.0); Mean Corpuscular Hgb Conc 34.7 g/dL (32.0-36.0); Mean Corpuscular Volume 86.8 fL (80.0-100.0); Mean Platelet Volume 9.2 fL (9.4-12.4); Platelet Count 303 K/uL (130-400); RDW Coefficient of Variation 13.2 % (11.5-14.5); RDW Standard Deviation 41.7 fL (36.4-46.3); Red Blood Count 4.78 M/uL (4.20-5.40); White Blood Count 12.49 K/ul (4.8-10.8)
[2022-12-27 07:10] LABS: Albumin Globulin Ratio 1.5 (0.9-2); Bilirubin,Total 0.6 mg/dl (0.2-1.0); Calcium 8.1 mg/dl (8.6-10.3); Creatinine Clr Calc Pharmacy 59.2 ml/min; Est GFR (African American) 92.7 ml/min; Globulin 2.6 gm/dl (2.5-4.0); Magnesium 1.8 mg/dl (1.7-2.4); Total Protein 6.6 gm/dl (6.0-8.3)
[2022-12-27 07:19] LABS: Basophils # (auto) 0.02 K/uL (0.00-0.20); Basophils % (auto) 0.2 %; Immature Granulocytes # (auto) 0.07 K/uL (0.01-0.20); Immature Granulocytes % (auto) 0.6 %; Lymphocytes # (auto) 0.43 K/uL (1.20-3.40); Lymphocytes % (auto) 3.4 %; Monocytes # (auto) 0.48 K/uL (0.11-0.59); Monocytes % (auto) 3.8 %; Neutrophils # (auto) 11.49 K/uL (1.40-6.50)
--- NOTE | 2022-12-27 07:41 | XRay Report ---
XR chest 1V not portable CLINICAL HISTORY: Chest pain, nonspecific TECHNIQUE: Single frontal radiograph of the chest was obtained. Comparison: Comparison is made to chest radiograph 04/07/2009 FINDINGS: No lines and tubes are seen. Calcified aortic knob is seen. The lungs are clear. No evidence of pleur al effusion or pneumothorax. IMPRESSION: No acute chest disease. ACT 112: Negative or not required by law. Electronically signed by: Kvng Castañeda M.D. 12/27/2022 7:40 AM
--- NOTE | 2022-12-27 08:36 | Electrocardiogram Report ---
Test Reason : Blood Pressure : / mmHG Vent. Rate : 063 BPM Atrial Rate : 063 BPM P-R Int : 210 ms QRS Dur : 086 ms QT Int : 446 ms P-R-T Axes : 102 048 044 degrees QTc Int : 456 ms Poor data quality, interpretation may be adversely affected Sinus rhythm with 1st degree A-V block Otherwise normal ECG When compared with ECG of 26-FEB-2006 06:53, No significant change was found Confirmed by Valeriy Harmon ([id number]) on 12/27/2022 8:36:07 AM Referred By: REFERRED SELF Confirmed By:Valeriy Harmon
[2022-12-27] MEDS: MoRPHine SULFATE 2 MG/ML CARP IV PRN (08:45)
--- NOTE | 2022-12-27 09:21 | Hospitalist Progress Note ---
Date of Service December 27, 2022 Assessment & Plan (1) Small bowel obstruction: Plan: Small bowel obstruction/history of ischemic colitis-taken to OR 02/26/22, Dr Blanco, small bowel resection and reanastomosis, NPO Zofran 4 mg IV every 6 hours as needed Pantoprazole 40 mg IV daily Zosyn 4.5 g IV every 8 hours NSS at 80 mils per hour Acetaminophen 1 g IV every 8 hours as needed for mild pain or fever CTA chest negative for PE (2) Hypothyroidism (acquired): Plan: Hypothyroidism- Okay to hold levothyroxine for couple days consider intermittend synthroid iv dosing if prolonged post op ileus Plan Elevated blood pressure without diagnosis of hypertension- Hydralazine 10 mg IV every 4 hours as needed for systolic blood pressure greater than 160 Admission and Anticipated Discharge Date Admission Date: December 27, 2022 Results & Data Results & Data Vital Signs (Past 12 Hours) Vital Signs Temp Pulse Pulse Resp BP Pulse Ox O2 Del Method 12/27/22 09:10 69 18 133/67 95 Room Air 12/27/22 07:28 97.9 F 69 20 143/64 H 95 Room Air 12/27/22 06:00 61 20 151/68 H 94 Room Air 12/27/22 03:54 74 20 150/68 H 95 Room Air 12/27/22 01:00 75 17 148/73 H 95 Room Air 12/27/22 00:29 96 Room Air 12/27/22 00:23 36 L 12/27/22 00:00 62 20 144/50 H 97 Room Air PG Care Time/CCT Total # of Minutes Spent Total Time Spent with Patient: Total time spent is greater than 50% in coordination of care (as documented) at patient's floor/unit and/or counseling patient: Coding Level of Care Code None Diagnoses Small bowel obstruction K56.609 Hypothyroidism (acquired) E03.9
[2022-12-27] MEDS ORDERED: PROPOFOL IV EMULSION 10 MG/ML 20 ML VIAL IV ONE (09:55)
[2022-12-27] MEDS ORDERED: fentaNYL citrate PF 100 MCG/2 ML VIAL ONE (09:55)
[2022-12-27] MEDS ORDERED: ONDANSETRON INJ 2 MG/ML 2 ML VIAL ONE (09:55)
[2022-12-27] MEDS ORDERED: DEXAMETHASONE SOD INJ 4 MG/ML VIAL ONE (09:55)
[2022-12-27] MEDS ORDERED: ROCURONIUM BROMIDE 10 MG/ML 5 ML VIAL IV ONE (09:55)
[2022-12-27] MEDS ORDERED: SUGAMMADEX SODIUM 200 MG/2 ML VIAL IV ONE (09:56)
--- NOTE | 2022-12-27 09:56 | Anesthesiology Consultation ---
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 Surgery Operation Date: 12/27/22 09:40 Proposed Procedures p Exploratory Laparotomy Possible Bowel Resection - Oliver Blanco DO Height/Weight Height: 5 ft 2 in Weight: 67.8 kg Allergies Allergy/AdvReac Type Severity Reaction Status Date / Time nickel Allergy Intermediate Rash Verified 12/26/22 22:39 timolol Allergy Unknown Unknown Verified 12/26/22 22:39 Beta-Blockers AdvReac Severe SEVERE Verified 12/26/22 22:39 (Beta-Adrenergic Bloc HYPOTENSION Opioids - Morphine Analogues AdvReac Intermediate Vomiting Verified 12/26/22 22:39 Medications Home Medications Medication Instructions Recorded Confirmed Last Taken levothyroxine 100 mcg tablet 100 mcg PO QAM 01/20/19 12/26/22 12/26/22 (Synthroid) netarsudil 0.02 %-latanoprost 1 drp OPR HS 01/20/19 12/26/22 12/25/22 0.005 % eye drops (Rocklatan) tafluprost (PF) 0.0015 % eye drops 1 drp OPL HS 01/20/19 12/26/22 12/25/22 in a dropperette (Zioptan (PF)) acetaminophen 650 mg 1,300 mg PO HS 07/17/19 12/26/22 12/25/22 tablet,extended release (Tylenol 8 Hour) nitrofurantoin macrocrystal 100 mg 100 mg PO HS #90 caps 08/23/19 12/26/22 12/25/22 capsule Active Medications Generic Name Dose Route Start Last Admin Trade Name Freq PRN Reason Stop Dose Admin Acetaminophen 1,000 mg 12/27/22 03:10 12/27/22 04:16 Acetaminophen 1000 Mg/100 Ml Iv IV 12/30/22 03:09 1,000 mg Q8H PRN Administration Pain or Fever Sodium Chloride 1,000 mls @ 80 mls/hr 12/27/22 00:45 12/27/22 04:20 Nss IV 01/26/23 00:44 80 mls/hr .[id number] MARIYA Administration Miscellaneous 1 each 12/27/22 08:00 12/27/22 07:35 Netarsudil-Latanoprost [Rocklatan] - Order Awaiting Action N/A 01/26/23 07:59 Not Given QS MARIYA Miscellaneous 1 each 12/27/22 08:00 12/27/22 07:35 Tafluprost (Pf) [Zioptan (Pf)] - Order Awaiting Action N/A 01/26/23 07:59 Not Given QS MARIYA Morphine Sulfate 2 mg 12/27/22 05:02 12/27/22 08:45 Morphine Sulfate 2 Mg/Ml Carp IV 01/10/23 05:01 2 mg Q4H PRN Administration Severe Pain (Scale 7, 8, 9,10) Ondansetron HCl 4 mg 12/27/22 00:41 12/27/22 08:45 Ondansetron Inj 2 Mg/Ml 2 Ml Vial IV 01/26/23 00:40 4 mg Q6H PRN Administration Nausea And Vomiting Past Medical History Medical History Hypothyroidism (acquired) Piriformis syndrome Lumbar radiculopathy Poor vision Recurrent UTI Schatzki's ring History of ischemic colitis IBS (irritable bowel syndrome) Hypothyroidism History of Graves' disease GERD (gastroesophageal reflux disease) Glaucoma Thyroid disorder Past Family History Family History Other Nausea and vomiting after administration of anesthetic agent Past Surgical History Surgical History History of Achilles tendon repair Rt History of back surgery History of hysterectomy with unilateral oophorectomy History of esophagogastroduodenoscopy (EGD) History of colonoscopy History of thyroidectomy, subtotal Social History Smoking Status: Never smoker Do You Dip or Chew Tobacco: No Hx Alcohol Use: No alcohol intake frequency: a few times a month Hx Substance Use: No substance use type: does not use Physical Exam Vital Signs Last Vital Signs Temp 97.9 F 12/27/22 07:28 Pulse 69 12/27/22 09:10 Resp 18 12/27/22 09:10 BP 133/67 12/27/22 09:10 Pulse Ox 95 12/27/22 09:10 O2 Del Method Room Air 12/27/22 09:10 Testing Laboratory Results 12/27/22 06:15 12/27/22 06:15 PT 10.9 Seconds (9.0-12.0) 12/26/22 21:21 INR 1.0 (0.9-1.1) 12/26/22 21:21 APTT 23.9 Seconds (21.0-31.0) 12/26/22 21:21 12/26/22 22:00 POC Glucose (other) 129 H Electrocardiogram Date: 12/26/22 Poor data quality, interpretation may be adversely affected Sinus rhythm with 1st degree A-V block, rate 63 bpm Otherwise normal ECG When compared with ECG of 26-FEB-2006 06:53, No significant change was found Confirmed by Valeriy Harmon ([id number]) on 12/27/2022 8:36:07 AM Chest X-Ray Date: 12/26/22 Findings: + NAD
--- NOTE | 2022-12-27 09:58 | Surgery Progress Note ---
Date of Service December 27, 2022 Assessment & Plan (1) Small bowel obstruction: Plan: She continues with 8 out of 10 abdominal pain and she now has a leukocytosis as compared to when she was admitted I think at this point there is a small bowel loop in the pelvis with some edema on her initial CT and risk for ischemia based on her labs and abdominal exam The safest thing would be to proceed with an exploration We will plan on exploratory laparotomy, possible bowel resection Consent was obtained, risk discussed including bleeding, infection, anastomotic leak, need for further surgery Admission and Anticipated Discharge Date Admission Date: December 27, 2022 Subjective Patient seen and examined. Still has significant abdominal pain. No N/V. Afebrile. No tachycardia. Review of Systems Constitutional: no fever and no chills Gastrointestinal: + abdominal pain; no nausea and no vomit ing Physical Exam Constitutional: WD/WN, vitals as above Gastrointestinal (Abdomen): Inspection/Auscultation: abdomen normal to inspection; abdomen not distended Percussion/Palpation: + abdomen tender (generalized), + guarding and abdomen soft; abdomen not rigid Results & Data Vital Signs (Past 12 Hours) Vital Signs Temp Pulse Pulse Resp BP Pulse Ox O2 Del Method 12/27/22 09:10 69 18 133/67 95 Room Air 12/27/22 07:28 36.6 C 69 20 143/64 H 95 Room Air 12/27/22 06:00 61 20 151/68 H 94 Room Air 12/27/22 03:54 74 20 150/68 H 95 Room Air 12/27/22 01:00 75 17 148/73 H 95 Room Air 12/27/22 00:29 96 Room Air 12/27/22 00:23 36 L 12/27/22 00:00 62 20 144/50 H 97 Room Air PG Care Time/CCT Total # of Minutes Spent Total Time Spent with Patient: Total time spent is greater than 50% in coordination of care (as documented) at patient's floor/unit and/or counseling patient: Coding Level of Care Code 36857 SUB INP/OBS CARE 3/50MIN Diagnoses Small bowel obstruction K56.609
[2022-12-27] MEDS ORDERED: KETOROLAC TROMETHAMINE 15 MG/ML VIAL IV PRN (10:00)
[2022-12-27] MEDS ORDERED: ONDANSETRON INJ 2 MG/ML 2 ML VIAL IV PRN (10:01)
[2022-12-27] MEDS ORDERED: fentaNYL citrate PF 100 MCG/2 ML VIAL IV PRN (10:01)
[2022-12-27] MEDS ORDERED: ePHEDrine sulfate 50 MG/ML AMP IV PRN (10:01)
[2022-12-27] MEDS ORDERED: ATROPINE SULFATE 0.1 MG/ML 10ML SYR IV PRN (10:01)
[2022-12-27] MEDS ORDERED: LACTATED RINGER'S 1,000 ML IV SCH (10:15)
[2022-12-27] MEDS ORDERED: HYDROmorphone INJ 1 MG/ML SYRINGE IV PRN (10:30)
[2022-12-27] MEDS ORDERED: MIDAZOLAM HCL 1 MG/ML 2ML VIAL ONE (10:32)
[2022-12-27] MEDS ORDERED: PHENYLEPHRINE 100MCG/ML 10ML SYR IV ONE (11:12)
[2022-12-27] MEDS ORDERED: HYDROmorphone INJ 2 MG/ML SYR/VIAL ONE (11:28)
[2022-12-27] MEDS ORDERED: LABETALOL HCL IV 5 MG/ML 20ML IV ONE (12:02)
--- NOTE | 2022-12-27 12:40 | Post Operative Brief Note ---
PG Immediate Post Op with CF Date of Surgery December 27, 2022 Pre & Post Diagnosis Operation Date: 12/27/22 09:40 Pre-Op Diagnosis: Small Bowel Obstruction Post-Op Diagnosis: Small Bowel Obstruction, small bowel ischemia I identified the patient and participated in the time-out.: Yes Procedure Operation Date: 12/27/22 09:40 Actual Procedures p Exploratory Laparotomy with Small Bowel Resection(Not Applicable) - Oliver Blanco DO Surgeon Oliver Blanco DO Analytical Consultant Anisha MATOS Estimated Blood Loss 50 Findings See Below Thick adhesion to the retroperitoneum causing small bowel obstruction resulting in small bowel ischemia Specimens Specimen Description: A: Small Bowel Drains Arnold Catheter Anesthesia Type General Complications none Disposition Disposition: Recovery Room
--- NOTE | 2022-12-27 12:51 | Operative Report ---
PG Post Operative Report Pre & Post Diagnosis Operation Date: 12/27/22 09:40 Pre-Op Diagnosis: Small Bowel Obstruction Post-Op Diagnosis: Small Bowel Obstruction, small bowel ischemia I identified the patient and participated in the time-out.: Yes Procedure Operation Date: 12/27/22 09:40 Actual Procedures p Exploratory Laparotomy with Small Bowel Resection(Not Applicable) - Oliver Blanco DO Surgeon Oliver Blanco DO Oral Surgeon Anisha MATOS Estimated Blood Loss 50 Findings See Below Thick adhesive band to the retroperitoneum causing small bowel obstruction resulting in small bowel ischemia Specimens Small bowel to pathology Drains None Anesthesia Type General Complications none Disposition Disposition: Recovery Room Indications 77 yo female with small bowel obstruction Description of Procedure The patient was brought to the OR and placed in the supine position with both arms abducted. At this time she underwent general endotracheal anesthesia without any problems. She was given appropriate pre-operative antibiotics. Her abdomen was prepped and draped in the usual sterile fashion. Timeout was called. The procedure was verified as Exploratory laparotomy, possible bowel resection. Surgical, anesthesia and nursing teams agreed and the procedure was begun. A standard midline incision was made using a #10 blade scalpel. This was carried down to the fascia using electrocautery. The midline fascia was then incised with electrocautery. The peritoneum was then entered bluntly. The incision was then opened up through its entirety. There was murky fluid encountered immediately upon entering the peritoneum. This point there was dilated small bowel was visualized. There was a thick adhesive band to the retroperitoneum that was lysed using electrocautery. This was the point of obstruction. The small bowel proximal to this for approximately 40cm was severely hyperemic and there were signs of necrosis of the corresponding mesentery. The bowel was warmed with irrigation. The bowel did not show any signs of peristalsis and at this time I proceeded with a small bowel resection using a LUCERO 80mm blue load stapler just proximal and just distal to the ischemic small bowel. The mesentery was then taken using the Ligasure device. The specimen was passed off as small bowel. At this time a side to side enteroenterostomy was fashioned by using a LUCERO 80mm blue load stapler to form a common channel on the antimesenteric side of both portions of small bowel. The resulting common enterotomy was then grasped with Allis clamps and closed using another LUCERO 80mm blue load stapler. A crotch stitch of 3-0 silk was placed to minimize any tension on the anastomosis. The anastomosis was without any tension or signs of ischemia. The mesenteric defect was then closed using a running 3-0 Vicryl. The rest of the small bowel was run from the Ligament of Treitz to the cecum and was all healthy and free of adhesions. At this point the wound was then irrigated until clear. Hemostasis was achieved using electrocautery. Hemostasis was complete. The fascia was then closed in a running fashion using 2 #1 looped PDS suture starting superiorly and inferiorly and meeting in the middle. Skin was closed with tita. Sterile dressing was applied. All needle and sponge counts were correct x 2. At this point the patient was awakened from anesthesia, and transported to PACU in stable condition. The nurse practitioner was present and scrubbed for the entirety of the case. She was critical in positioning the patient, prepping and draping, retraction and exposure, closure of the incision and placement of the dressings. I attest to the content of the Intraoperative Record and any orders documented therein. Any exceptions are noted below.
--- NOTE | 2022-12-27 13:11 | Anesthesiology Progress Note ---
Date of Service December 27, 2022 Anesthesia Post Procedure Vital Signs Vital Signs: Temp Pulse Pulse Resp BP BP Pulse Ox 12/27/22 13:05 62 15 145/62 H 93 12/27/22 12:55 59 L 12 175/76 H 98 12/27/22 12:45 61 13 168/72 H 97 12/27/22 12:36 96.8 F L 67 14 187/80 H 92 12/27/22 10:19 98.6 F 77 16 138/63 95 12/27/22 09:10 69 18 133/67 95 12/27/22 07:28 97.9 F 69 20 143/64 H 95 12/27/22 06:00 61 20 151/68 H 94 12/27/22 03:54 74 20 150/68 H 95 12/27/22 01:00 75 17 148/73 H 95 12/27/22 00:29 96 12/27/22 00:23 36 L 12/27/22 00:00 62 20 144/50 H 97 12/26/22 21:12 66 12/26/22 21:11 97.9 F 67 19 197/74 H 100 12/26/22 20:54 100 O2 Del Method O2 Flow Rate 12/27/22 13:05 Nasal Cannula 3 12/27/22 12:55 Oxymask 4 12/27/22 12:45 Oxymask 6 12/27/22 12:36 Oxymask 6 12/27/22 10:19 Room Air 12/27/22 09:10 Room Air 12/27/22 07:28 Room Air 12/27/22 06:00 Room Air 12/27/22 03:54 Room Air 12/27/22 01:00 Room Air 12/27/22 00:29 Room Air 12/27/22 00:23 12/27/22 00:00 Room Air 12/26/22 21:12 12/26/22 21:11 Room Air 12/26/22 20:54 Room Air Pain Intensity Upper Abdomen: Pain Intensity: 8 Transfer of Care Handoff Completed per policy Notes Mental Status: alert / awake / arousable and participated in evaluation Patient Amnestic to Procedure: Yes Nausea / Vomiting: adequately controlled Pain: adequately controlled Airway Patency, RR, SpO2: stable & adequate BP & HR: stable & adequate Hydration State: stable & adequate Anesthetic Complications: no major complications apparent and Pt Satisfied with anesthetic care
[2022-12-27] MEDS: SODIUM CHLORIDE 0.9% 1,000 ML IV SCH (17:08)
--- NOTE | 2022-12-27 17:18 | Communication Note ---
Date of Service: December 27, 2022 pt may take own eye drops please send to pharmacy to confirm
[2022-12-27] MEDS: PIPERACILLIN/TAZOBACTAM 4.5 GM in DEXTROSE 5% MINI-B 100 ML IV SCH ×2 (17:40→18:32)
[2022-12-27] MEDS: PANTOprazole 40 MG in SYRINGE 0 ML IV SCH (18:32)
[2022-12-27] MEDS: SOOTHE EYE OP SCH (21:15)
[2022-12-27] MEDS: TAFLUPROST/PF 1 EA DROPS OPL SCH (21:15)
[2022-12-27] MEDS: NETARSUDIL MESYLAT/LATANOPROST 37 DROPS/2.5 ML BTL OPR SCH ×2 (21:15→21:19)
[2022-12-28] MEDS ORDERED: HYDROmorphone INJ 0.5 MG/0.5 ML SYR IV STA (00:01)
[2022-12-28] MEDS: PIPERACILLIN/TAZOBACTAM 4.5 GM in DEXTROSE 5% MINI-B 100 ML IV SCH ×3 (02:28→17:58)
[2022-12-28] MEDS: SODIUM CHLORIDE 0.9% 1,000 ML IV SCH ×3 (03:18→10:00)
[2022-12-28] MEDS: ONDANSETRON INJ 2 MG/ML 2 ML VIAL IV PRN ×2 (05:18→17:09)
[2022-12-28] MEDS: MoRPHine SULFATE 2 MG/ML CARP IV PRN (05:18)
[2022-12-28 08:33] LABS: Basophils # (auto) 0.02 K/uL (0.00-0.20); Basophils % (auto) 0.2 %; Hematocrit (blood only) 35.2 % (37.0-47.0); Hemoglobin 12.1 g/dl (12.0-16.0); Immature Granulocytes # (auto) 0.03 K/uL (0.01-0.20); Immature Granulocytes % (auto) 0.3 %; Lymphocytes # (auto) 0.74 K/uL (1.20-3.40); Lymphocytes % (auto) 7.5 %; Mean Corpuscular Hemoglobin 30.3 pg (25.0-34.0); Mean Corpuscular Hgb Conc 34.4 g/dL (32.0-36.0); Mean Corpuscular Volume 88.2 fL (80.0-100.0); Mean Platelet Volume 9.5 fL (9.4-12.4); Monocytes # (auto) 0.95 K/uL (0.11-0.59); Monocytes % (auto) 9.6 %; Neutrophils # (auto) 8.19 K/uL (1.40-6.50); Neutrophils % (auto) 82.4 %; Platelet Count 263 K/uL (130-400); RDW Coefficient of Variation 13.7 % (11.5-14.5); RDW Standard Deviation 44.4 fL (36.4-46.3); Red Blood Count 3.99 M/uL (4.20-5.40); White Blood Count 9.93 K/ul (4.8-10.8)
[2022-12-28 08:51] LABS: Albumin Globulin Ratio 1.4 (0.9-2); Albumin Level 3.2 gm/dl (3.4-5.0); BUN Creatinine Ratio 15.7 (10-20); Bilirubin,Total 0.8 mg/dl (0.2-1.0); Creatinine Clr Calc Pharmacy 61.7 ml/min; Est GFR (African American) 97.5 ml/min; Est GFR (Non-African American) 84.2 ml/min; Globulin 2.3 gm/dl (2.5-4.0); Magnesium 1.9 mg/dl (1.7-2.4); Potassium 3.7 mmol/L (3.5-5.1); Total Protein 5.5 gm/dl (6.0-8.3)
--- NOTE | 2022-12-28 09:00 | Electrocardiogram Report ---
Test Reason : Blood Pressure : / mmHG Vent. Rate : 078 BPM Atrial Rate : 078 BPM P-R Int : 178 ms QRS Dur : 074 ms QT Int : 404 ms P-R-T Axes : 063 057 052 degrees QTc Int : 460 ms Normal sinus rhythm Diffuse Minor Nonspecific T wave abnormality Abnormal ECG When compared with ECG of 26-DEC-2022 21:09, NV interval has decreased Minor Nonspecific T wave abnormality now evident in Anterolateral leads Confirmed by Valeriy Harmon ([id number]) on 12/28/2022 8:59:46 AM Referred By: REFERRED SELF Confirmed By:Valeriy Harmon
[2022-12-28] MEDS: ACETAMINOPHEN 1000 MG/100 ML IV IV PRN ×2 (09:41→17:42)
[2022-12-28] MEDS: PANTOprazole 40 MG in SYRINGE 0 ML IV SCH (10:01)
--- NOTE | 2022-12-28 11:24 | Surgery Progress Note ---
Date of Service December 28, 2022 Assessment & Plan (1) SBO (small bowel obstruction): Plan: Shes doing well POD#1 ex lap, SBR Remove Arnold Continue NPO/NGT Encourage ambulation/incentive spirometry Lovenox daily for DVT prophylaxis (2) S/P exploratory laparotomy: Admission and Anticipated Discharge Date Admission Date: December 27, 2022 Subjective Pt seen and examined. Pain improved. Afebrile. No flatus or BM. Physical Exam Constitutional: WD/WN, vitals as above Gastrointestinal (Abdomen): Dressing c/d/i Soft, appropriately TTP Results & Data Vital Signs (Past 12 Hours) Vital Signs Temp Pulse Pulse Resp BP BP Pulse Ox 12/28/22 10:38 12/28/22 07:35 37.0 C 82 18 151/75 H 97 12/28/22 07:06 79 12/28/22 04:00 37.2 C 84 16 134/80 97 12/28/22 00:00 77 12/27/22 23:25 36.9 C 80 18 113/72 95 O2 Del Method O2 Flow Rate 12/28/22 10:38 Nasal Cannula 1 12/28/22 07:35 Room Air 12/28/22 07:06 12/28/22 04:00 Nasal Cannula 2 12/28/22 00:00 12/27/22 23:25 Nasal Cannula 2 PG Care Time/CCT Total # of Minutes Spent Total Time Spent with Patient: Total time spent is greater than 50% in coordination of care (as documented) at patient's floor/unit and/or counseling patient: Coding Level of Care Code 76641 Post Operative Follow-Up Diagnoses SBO (small bowel obstruction) K56.609 S/P exploratory laparotomy Z98.890
[2022-12-28] MEDS: ENOXAPARIN INJ 40 MG/0.4 ML SYR SQ SCH (11:52)
--- NOTE | 2022-12-28 20:05 | Hospitalist Progress Note ---
Date of Service December 28, 2022 Assessment & Plan (1) Small bowel obstruction: Plan: Small bowel obstruction/history of ischemic colitis-taken to OR 02/26/22, Dr Blanco, small bowel resection and reanastomosis, continues NPO, pain medications, ngt to LIS Pantoprazole 40 mg IV daily Zosyn 4.5 g IV every 8 hours NSS at 80 mils per hour Acetaminophen 1 g IV every 8 hours as needed for mild pain or fever CTA chest negative for PE (2) Hypothyroidism (acquired): Plan: Hypothyroidism- Okay to hold levothyroxine for couple days consider intermittend synthroid iv dosing if prolonged post op ileus Admission and Anticipated Discharge Date Admission Date: December 27, 2022 Subjective pt is awake and alert, no real pain, still NGT no flatus Physical Exam Physical Exam: cardiac exam is regular lungs are clear abd is with absent bowel sounds soft mildly tender Results & Data Results & Data Vital Signs (Past 12 Hours) Vital Signs Temp Pulse Pulse Resp BP Pulse Ox O2 Del Method 12/28/22 19:20 98.8 F 77 18 138/62 97 Nasal Cannula 12/28/22 16:30 78 12/28/22 16:11 98.6 F 79 17 133/75 93 Room Air 12/28/22 11:49 98.1 F 69 18 145/75 H 98 Room Air 12/28/22 10:38 Nasal Cannula O2 Flow Rate 12/28/22 19:20 3 12/28/22 16:30 12/28/22 16:11 12/28/22 11:49 12/28/22 10:38 1 Laboratory Results Reviewed CBC reviewed chemistry PG Care Time/CCT Total # of Minutes Spent Total Time Spent with Patient: Total time spent is greater than 50% in coordination of care (as documented) at patient's floor/unit and/or counseling patient: Coding Level of Care Code 66415 SUB INP/OBS CARE 2/35MIN Diagnoses Small bowel obstruction K56.609 Hypothyroidism (acquired) E03.9
[2022-12-28] MEDS: SOOTHE EYE OP SCH (20:50)
[2022-12-28] MEDS: NETARSUDIL MESYLAT/LATANOPROST 37 DROPS/2.5 ML BTL OPR SCH (20:50)
[2022-12-28] MEDS: TAFLUPROST/PF 1 EA DROPS OPL SCH (20:50)
[2022-12-29] MEDS: SODIUM CHLORIDE 0.9% 1,000 ML IV SCH ×2 (00:03→08:04)
--- OUTSIDE RECORDS SUMMARY | 2022-12-29 00:24 | External Medical Summary | Continuity of Care Document ---
Author Name Unknown Organization [address] Address [address] [place] [address] [place], [place] [id number] Care Team Providers Care Laboratory Assistant Name Role Phone Carlos Soliman Primary Care Physician [phone] Encounter [facility] [id number] Date(s): 07/23/22 - 07/23/[address], [facility] [address] [place] [address] [phone] Encounter Diagnosis Body mass index [BMI] 26.0-26.9, adult(Discharge Diagnosis) - 07/23/22 Hypothyroidism(Discharge Diagnosis) - 07/23/22 Discharge Disposition: Home or Self Care Attending Physician: MD Soliman Jesse Referring Physician: MD Soliman Jesse Allergies, Adverse Reactions, Alerts Substance Reaction Severity Status timolol Active opioid-like analgesics Vomiting Moderate Activ e Immunizations Given and Recorded Vaccine Date Status Refusal Reason SARS-CoV-2 (COVID-19) mRNA-1273 vaccine 1 01/02/21 Recorded SARS-CoV-2 (COVID-19) mRNA-1273 vaccine 2 04/11/20 Recorded SARS-CoV-2 (COVID-19) mRNA-1273 vaccine 3 03/14/20 Recorded zoster vaccine, inactivated 4 01/31/19 Recorded pneumococcal 13-valent vaccine 5 03/09/16 Recorded influenza virus vaccine, H1N1 6 02/20/09 Recorded 1Result Comment: 2021-06-17: Historical information-source unspecified 2Result Comment: 2021-06-17: Historical information-source unspecified 3Result Comment: 2021-06-17: Historical information-source unspecified 4Result Comment: 2021-06-17: Historical information-source unspecified 5Result Comment: 2021-06-17: Historical information-source unspecified 6Result Comment: 2021-06-17: Historical information-source unspecified Medications Estrace Vaginal 0.1 mg/g vaginal cream Start: 06/17/21 10:59:00 EDT, 1 g =, vaginal, q72h Start Date: 06/17/21 Status: Ordered estradiol 0.5 mg oral tablet Start: 12/23/21 11:03:00 EST, 1 tab, PO, Daily Start Date: 12/23/21 Status: Ordered levothyroxine 100 mcg (0.1 mg) oral tablet Start: 02/16/13 13:08:00, 1 tab, PO, Daily Start Date: 02/16/13 Status: Ordered Macrodantin Start: 07/23/22 11:04:00 EDT Start Date: 07/23/22 Status: Ordered sertraline 25 mg oral tablet Start: 07/23/22 10:56:00 EDT, 1 tab, PO, Daily Start Date: 07/23/22 Status: Ordered Systane Nighttime ophthalmic ointment Start: 04/18/17 13:17:00, 1 appl, both eyes, qhs, PRN: dry eyes Start Date: 04/18/17 Status: Ordered unknown medication Start: 04/18/17 13:18:00 EST, rocklatan 1 drop R eye daily Start Date: 04/18/17 Status: Ordered Vitamin A, D oral capsule Start: 12/11/12 10:37:00, 1 cap, PO, Daily Start Date: 12/11/12 Status: Ordered Zioptan Start: 02/26/14 12:54:00, 1 drop, both eyes, qPM Start Date: 02/26/14 Status: Ordered Mental Status 07/23/22 Barriers to Learning one year None evide nt Mandatory Health Literacy Documentation Yes Health Literacy Communication Barriers N ever Primary Language Angolan Problem List Condition Confirmation Course Effective Dates Status H ealth Status Informant Achilles bursitis Confirmed Active Achilles tendinosis Confirmed Active Ankle pain Confirmed Active Ankle pain Confirmed Active Cataract of both eyes Confirmed Active Pes anserine bursitis Confirmed Active Lumbar disc disease Confirmed Active Dry eyes Confirmed Active Fuchs' endothelial dystrophy Confirmed Active H/O Achilles tendon repair Confirmed Active Hamstring strain Confirmed Active Right hip pain Confirmed Active Hypothyroidism Confirmed Active Knee pain Confirmed Active Left knee pain Confirmed Active Right lumbar radiculopathy Confirmed Active Spondylolisthesis, lumbar region Confirmed Active Myopia Confirmed Active Pes anserinus tendinitis of right lower extremity Confirmed Active PVD (posterior vitreous detachment) Confirmed Active POAG (primary open-angle glaucoma) Confirmed Active Retinal tear of both eyes Confirmed Active Sprain of ankle Confirmed Active Knee MCL sprain Confirmed Active Strain of hamstring insertion Confirmed Active Left tibialis posterior tendinitis Confirmed Active Trochanteric bursitis of left hip Confirmed Active Diagnosis Diagnosis Type Effective Dates Health Status Clinical Service Informant Body mass index [BMI] 26.0-26.9, adult Discharge Diagnosis 07/23/22 Non-Specified Hypothyroidism Discharge Diagnosis 07/23/22 Procedures Procedure Date Related Diagnosis Body Site Status Back surgery 1983 Completed Abdominal hysterectomy Co mpleted Achilles tendon Completed SLT - selective laser trabeculoplasty 1 Completed Thyroid Completed 1RE Vital Signs Most recent to oldest [Reference Range]: 1 Height 156 cm (07/23/22 10:50 AM) Patient Weight 64.7 kg (07/23/22 10:50 AM) Body Mass Index 26.59 kg/m2 (07/23/22 10:50 AM) Temperature [36.5-37.9 DegC] 36.7 DegC (07/23/22 10:50 AM) Blood Pressure 116/64mmHg (07/23/22 10:50 AM) Cuff Pulse Pressure 52 mmHg (07/23/22 10:50 AM) Social History Social History Type Response Smoking Status Never smoked cigaret finn Sex Female Patient Care team information Care Team Personnel Name: MD Soliman Jesse Position: Physician Member Role: Primary Care Provider Address: Address: [address] [place] [id number] Care Team Related Persons Name: SANDIE NASSAR Address: home [address] [place] [address] [facility] [id number]
[2022-12-29] MEDS: PIPERACILLIN/TAZOBACTAM 4.5 GM in DEXTROSE 5% MINI-B 100 ML IV SCH ×3 (01:31→18:36)
[2022-12-29] MEDS: ACETAMINOPHEN 1000 MG/100 ML IV IV PRN ×3 (02:27→16:27)
[2022-12-29 06:45] LABS: Basophils # (auto) 0.03 K/uL (0.00-0.20); Basophils % (auto) 0.4 %; Eosinophils # (auto) 0.03 K/uL (0.00-0.50); Eosinophils % (auto) 0.4 %; Hematocrit (blood only) 33.7 % (37.0-47.0); Hemoglobin 11.3 g/dl (12.0-16.0); Immature Granulocytes # (auto) 0.03 K/uL (0.01-0.20); Immature Granulocytes % (auto) 0.4 %; Lymphocytes # (auto) 1.09 K/uL (1.20-3.40); Lymphocytes % (auto) 13.4 %; Mean Corpuscular Hemoglobin 30.4 pg (25.0-34.0); Mean Corpuscular Hgb Conc 33.5 g/dL (32.0-36.0); Mean Corpuscular Volume 90.6 fL (80.0-100.0); Monocytes # (auto) 0.66 K/uL (0.11-0.59); Monocytes % (auto) 8.1 %; Neutrophils # (auto) 6.28 K/uL (1.40-6.50); Neutrophils % (auto) 77.3 %; Platelet Count 239 K/uL (130-400); RDW Coefficient of Variation 13.8 % (11.5-14.5); RDW Standard Deviation 46.4 fL (36.4-46.3); Red Blood Count 3.72 M/uL (4.20-5.40); White Blood Count 8.12 K/ul (4.8-10.8)
[2022-12-29 06:56] LABS: Bilirubin,Total 0.9 mg/dl (0.2-1.0); Calcium 7.8 mg/dl (8.6-10.3); Magnesium 1.9 mg/dl (1.7-2.4); Potassium 3.1 mmol/L (3.5-5.1)
[2022-12-29 07:02] LABS: Albumin Globulin Ratio 1.4 (0.9-2); BUN Creatinine Ratio 15.2 (10-20); Creatinine Clr Calc Pharmacy 65.5 ml/min; Est GFR (African American) 99.5 ml/min; Est GFR (Non-African American) 85.8 ml/min; Globulin 2.2 gm/dl (2.5-4.0); Total Protein 5.2 gm/dl (6.0-8.3)
[2022-12-29] MEDS: POTASSIUM CHLORIDE / WTR 10 MEQ/100 ML PLCT IV SCH ×4 (07:58→11:18)
[2022-12-29] MEDS: ONDANSETRON INJ 2 MG/ML 2 ML VIAL IV PRN ×2 (08:04→18:44)
--- NOTE | 2022-12-29 08:42 | Hospitalist Progress Note ---
Date of Service December 29, 2022 Assessment & Plan (1) Small bowel obstruction: Plan: Small bowel obstruction/history of ischemic colitis-taken to OR 02/26/22, Dr Blanco, small bowel resection and reanastomosis, continues NPO, pain medications, ngt to LIS Pantoprazole 40 mg IV daily Zosyn 4.5 g IV every 8 hours NSS at 80 mils per hour Acetaminophen 1 g IV every 8 hours as needed for mild pain or fever CTA chest negative for PE (2) Hypothyroidism (acquired): Plan: Hypothyroidism- Okay to hold levothyroxine for couple days consider intermittend synthroid iv dosing if prolonged post op ileus Admission and Anticipated Discharge Date Admission Date: December 27, 2022 Subjective Pt seen and examined. Passed a small amount of flatus. Abdominal pain controlled. Afebrile. ngt tube still with drainage Physical Exam Physical Exam: cardiac exam is regular lungs are clear abd is with absent bowel sounds soft mildly tender Results & Data Results & Data Vital Signs (Past 12 Hours) Vital Signs Temp Pulse Pulse Resp BP Pulse Ox O2 Del Method 12/29/22 07:37 97.2 F L 76 18 144/76 H 92 Room Air 12/29/22 03:08 98.8 F 72 18 148/76 H 94 Room Air 12/29/22 00:00 71 12/28/22 23:04 98.4 F 78 18 146/65 H 95 Room Air Laboratory Results Reviewed chemistry reviewed CBC Ordered repletion of hypokalemia with parenteral potassium and augmented magnesium PG Care Time/CCT Total # of Minutes Spent Total Time Spent with Patient: Total time spent is greater than 50% in coordination of care (as documented) at patient's floor/unit and/or counseling patient: Coding Level of Care Code 68057 SUB INP/OBS CARE 2/35MIN Diagnoses Small bowel obstruction K56.609 Hypothyroidism (acquired) E03.9
[2022-12-29] MEDS ORDERED: MAGNESIUM SULFATE / D5W 1 GM/100 ML BAG IV ONE (09:45)
[2022-12-29] MEDS: NSS + 20MEQ KCL 20 MEQ/1,000 ML BAG IV SCH ×2 (10:48→18:36)
[2022-12-29] MEDS: ENOXAPARIN INJ 40 MG/0.4 ML SYR SQ SCH (11:04)
[2022-12-29] MEDS: PANTOprazole 40 MG in SYRINGE 0 ML IV SCH (11:05)
--- NOTE | 2022-12-29 11:36 | Surgery Progress Note ---
Date of Service December 29, 2022 Assessment & Plan (1) SBO (small bowel obstruction): Plan: Shes doing well POD#2 ex lap, SBR shes begun to pass some flatus, but nothing significant Replace K+ to keep at 4.0 or above Continue NPO/NGT Encourage ambulation/incentive spirometry Lovenox daily for DVT prophylaxis (2) S/P exploratory laparotomy: Admission and Anticipated Discharge Date Admission Date: December 27, 2022 Subjective Pt seen and examined. Passed a small amount of flatus. Abdominal pain controlled. Afebrile. Physical Exam Constitutional: WD/WN, vitals as above Gastrointestinal (Abdomen): Dressing c/d/i Soft, appropriately TTP Results & Data Vital Signs (Past 12 Hours) Vital Signs Temp Pulse Pulse Resp BP Pulse Ox O2 Del Method 12/29/22 07:37 36.2 C L 76 18 144/76 H 92 Room Air 12/29/22 03:08 37.1 C 72 18 148/76 H 94 Room Air 12/29/22 00:00 71 PG Care Time/CCT Total # of Minutes Spent Total Time Spent with Patient: Total time spent is greater than 50% in coordination of care (as documented) at patient's floor/unit and/or counseling patient: Coding Level of Care Code 45516 Post Operative Follow-Up Diagnoses SBO (small bowel obstruction) K56.609 S/P exploratory laparotomy Z98.890
[2022-12-29] MEDS: MoRPHine SULFATE 2 MG/ML CARP IV PRN ×2 (12:27→21:48)
[2022-12-29] MEDS: SOOTHE EYE OP SCH (20:40)
[2022-12-29] MEDS: NETARSUDIL MESYLAT/LATANOPROST 37 DROPS/2.5 ML BTL OPR SCH (20:40)
[2022-12-29] MEDS: TAFLUPROST/PF 1 EA DROPS OPL SCH (20:41)
[2022-12-30] MEDS: ACETAMINOPHEN 1000 MG/100 ML IV IV PRN (01:28)
[2022-12-30] MEDS: PIPERACILLIN/TAZOBACTAM 4.5 GM in DEXTROSE 5% MINI-B 100 ML IV SCH ×3 (01:51→18:01)
[2022-12-30] MEDS: NSS + 20MEQ KCL 20 MEQ/1,000 ML BAG IV SCH ×3 (02:02→20:50)
[2022-12-30] MEDS: ONDANSETRON INJ 2 MG/ML 2 ML VIAL IV PRN ×2 (04:05→18:06)
[2022-12-30] MEDS: MoRPHine SULFATE 2 MG/ML CARP IV PRN (04:05)
[2022-12-30 05:25] LABS: BUN Creatinine Ratio 21.1 (10-20); Calcium 7.7 mg/dl (8.6-10.3); Creatinine Clr Calc Pharmacy 75.8 ml/min; Est GFR (African American) 104.4 ml/min; Magnesium 1.9 mg/dl (1.7-2.4); Potassium 3.6 mmol/L (3.5-5.1)
[2022-12-30 05:27] LABS: Basophils # (auto) 0.06 K/uL (0.00-0.20); Basophils % (auto) 0.8 %; Eosinophils % (auto) 2.6 %; Hematocrit (blood only) 30.4 % (37.0-47.0); Hemoglobin 10.1 g/dl (12.0-16.0); Immature Granulocytes # (auto) 0.03 K/uL (0.01-0.20); Immature Granulocytes % (auto) 0.4 %; Lymphocytes # (auto) 1.03 K/uL (1.20-3.40); Lymphocytes % (auto) 13.2 %; Mean Corpuscular Hgb Conc 33.2 g/dL (32.0-36.0); Mean Corpuscular Volume 90.2 fL (80.0-100.0); Mean Platelet Volume 9.2 fL (9.4-12.4); Monocytes % (auto) 6.4 %; Neutrophils # (auto) 5.98 K/uL (1.40-6.50); Neutrophils % (auto) 76.6 %; Platelet Count 239 K/uL (130-400); RDW Coefficient of Variation 13.5 % (11.5-14.5); RDW Standard Deviation 44.9 fL (36.4-46.3); Red Blood Count 3.37 M/uL (4.20-5.40)
[2022-12-30] MEDS ORDERED: MAGNESIUM SULFATE / D5W 1 GM/100 ML BAG IV ONE (07:38)
[2022-12-30] MEDS: POTASSIUM CHLORIDE / WTR 10 MEQ/100 ML PLCT IV SCH ×2 (08:15→09:18)
[2022-12-30] MEDS: ENOXAPARIN INJ 40 MG/0.4 ML SYR SQ SCH (08:16)
[2022-12-30] MEDS: ACETAMINOPHEN 1,000 MG/100 ML VIAL IV PRN ×2 (10:49→20:06)
--- NOTE | 2022-12-30 11:23 | Surgery Progress Note ---
Date of Service December 30, 2022 Assessment & Plan (1) SBO (small bowel obstruction): Plan: She had about 300 mL out her NG tube over the last 12 hours We will clamp trial today possible removal later if there is less than 100 mL residual after 4 hours Encourage ambulation and spirometry Continue to await more meaningful return of bowel function prior to advancing diet (2) S/P exploratory laparotomy: Admission and Anticipated Discharge Date Admission Date: December 27, 2022 Subjective Patient seen and examined. Passing some flatus. No nausea or vomiting. Abdominal pain controlled. Afebrile. Physical Exam Constitutional: WD/WN, vitals as above Gastrointestinal (Abdomen): Soft, appropriately tender to palpation Incision with tita, no erythema or drainage Results & Data Vital Signs (Past 12 Hours) Vital Signs Temp Pulse Resp BP BP Pulse Ox O2 Del Method 12/30/22 07:28 36.5 C 64 18 148/76 H 94 Room Air 12/30/22 03:26 36.9 C 60 18 138/59 L 92 Room Air 12/29/22 23:34 36.6 C 63 18 132/70 91 Room Air PG Care Time/CCT Total # of Minutes Spent Total Time Spent with Patient: Total time spent is greater than 50% in coordination of care (as documented) at patient's floor/unit and/or counseling patient: Coding Level of Care Code 69505 Post Operative Follow-Up Diagnoses SBO (small bowel obstruction) K56.609 S/P exploratory laparotomy Z98.890
[2022-12-30] MEDS: PANTOprazole 40 MG in SYRINGE 0 ML IV SCH (11:59)
--- NOTE | 2022-12-30 12:40 | Hospitalist Progress Note ---
Date of Service December 30, 2022 Assessment & Plan (1) Small bowel obstruction: Plan: Small bowel obstruction/history of ischemic colitis-taken to OR 02/26/22, Dr Blanco, ex lap w/ small bowel resection, KARISSA, and reanastomosis CTA chest negative for PE Passing flatus, no BM yet, pain controlled NGT now to clamp, may remove later today if <100mL output as per Surgery -continue BPO except sips and chips today, slowly advance as tolerated as bowel function returns -continue IVFs + KCL -replace lytes-could not tolerate IV K+ but did get some, replace IV mag to keep optimal at 4.0 -continue Pantoprazole 40 mg IV daily -continue Zosyn 4.5 g IV every 8 hours -IV APAP and morphine prn pain (2) Hypothyroidism (acquired): Plan: s/p total thyroidectomy Last TSH 1.2 in our lab system from 2020-presumably she has had this monitored by her PCP -restart po home dose of LT4 when taking po -if prolonged NPO status much longer, will startt 1/2 dose IV LT4 (3) S/P exploratory laparotomy: Plan: as above (4) Glaucoma: Plan: continue home eye gtts (5) Recurrent UTI: Plan: none in 2 years typically on daily Macrobid for prophylaxis which is on hold here while NPO and on ZOsyn holding home estrogen as well Plan DVT proph-Lovenox SQ SCDs Dispo-continued stay, desires to go to [facility] [place] for respite care on discharge-CM aware Admission and Anticipated Discharge Date Admission Date: December 27, 2022 Subjective Passing flatus, no BM. Has some nausea but controlled with Zofran. Has some abd pain but is trying to avoid opioids if possible. Denies CP, SOB, lightheadedness. Tele with NSR, rates 60s Physical Exam Constitutional: WD/WN, vitals as above Neck: trachea midline, no thyromegaly Respiratory: normal respiratory effort, lungs clear to auscultation Cardiovascular: RRR, no murmur, no edema Chest (Breasts): Chest: normal inspection of chest Gastrointestinal (Abdomen): Inspection/Auscultation: normal bowel sounds; + abdomen abnormal to inspection (midline laparotomy incision with tita, c/d/i) Percussion/Palpation: + abdomen tender (diffuse, mild) and abdomen soft; no guarding Neurologic: moves all extremities and awake; no focal motor deficits Psychiatric: A+Ox3, euthymic affect Results & Data Results & Data Vital Signs (Past 12 Hours) Vital Signs Temp Pulse Resp BP Pulse Ox O2 Del Method 12/30/22 07:28 36.5 C 64 18 148/76 H 94 Room Air 12/30/22 03:26 36.9 C 60 18 138/59 L 92 Room Air Laboratory Results CBC, BMP, magnesium reviewed PG Care Time/CCT Total # of Minutes Spent Total Time Spent with Patient: Total time spent is greater than 50% in coordination of care (as documented) at patient's floor/unit and/or counseling patient: Coding Level of Care Code 05420 SUB INP/OBS CARE 2/35MIN Diagnoses Small bowel obstruction K56.609 Hypothyroidism (acquired) E03.9 S/P exploratory laparotomy Z98.890 Glaucoma H40.9 Recurrent UTI N39.0
[2022-12-30] MEDS: NETARSUDIL MESYLAT/LATANOPROST 37 DROPS/2.5 ML BTL OPR SCH (19:57)
[2022-12-30] MEDS: TAFLUPROST/PF 1 EA DROPS OPL SCH (19:58)
[2022-12-30] MEDS: SOOTHE EYE OP SCH (19:59)
[2022-12-30] MEDS ORDERED: GLUCAGON FOR INJ 1 MG VIAL SQ PRN (20:44)
[2022-12-30] MEDS ORDERED: CARBOHYDRATES FOR HYPOGLYCEMIA PO PRN (20:44)
[2022-12-30] MEDS ORDERED: GLUCOSE 40% GEL 15 GM TUBE PO PRN (20:44)
[2022-12-30] MEDS ORDERED: DEXTROSE 50% 50 ML SYRINGE IV PRN (20:44)
[2022-12-30] MEDS ORDERED: GLUCOSE 10 TAB/TUBE PO PRN (20:44)
[2022-12-31] MEDS: ONDANSETRON INJ 2 MG/ML 2 ML VIAL IV PRN ×3 (00:04→18:21)
[2022-12-31] MEDS ORDERED: Nursing to Pharmacy Communication SCH (00:45)
[2022-12-31] MEDS: PIPERACILLIN/TAZOBACTAM 4.5 GM in DEXTROSE 5% MINI-B 100 ML IV SCH ×3 (01:52→18:21)
[2022-12-31] MEDS: MoRPHine SULFATE 2 MG/ML CARP IV PRN ×3 (03:05→20:02)
[2022-12-31] MEDS: NSS + 20MEQ KCL 20 MEQ/1,000 ML BAG IV SCH ×2 (04:50→13:00)
[2022-12-31 07:21] LABS: BUN Creatinine Ratio 17.9 (10-20); Calcium 7.9 mg/dl (8.6-10.3); Creatinine Clr Calc Pharmacy 78.5 ml/min; Est GFR (Non-African American) 90.6 ml/min; Magnesium 1.8 mg/dl (1.7-2.4)
[2022-12-31 07:38] LABS: Basophils # (auto) 0.05 K/uL (0.00-0.20); Basophils % (auto) 0.8 %; Eosinophils # (auto) 0.41 K/uL (0.00-0.50); Eosinophils % (auto) 6.2 %; Hematocrit (blood only) 31.2 % (37.0-47.0); Hemoglobin 10.4 g/dl (12.0-16.0); Immature Granulocytes # (auto) 0.03 K/uL (0.01-0.20); Immature Granulocytes % (auto) 0.5 %; Lymphocytes # (auto) 0.96 K/uL (1.20-3.40); Lymphocytes % (auto) 14.5 %; Mean Corpuscular Hemoglobin 30.1 pg (25.0-34.0); Mean Corpuscular Hgb Conc 33.3 g/dL (32.0-36.0); Mean Corpuscular Volume 90.4 fL (80.0-100.0); Mean Platelet Volume 9.5 fL (9.4-12.4); Monocytes # (auto) 0.47 K/uL (0.11-0.59); Monocytes % (auto) 7.1 %; Neutrophils # (auto) 4.68 K/uL (1.40-6.50); Neutrophils % (auto) 70.9 %; Platelet Count 267 K/uL (130-400); RDW Coefficient of Variation 13.6 % (11.5-14.5); RDW Standard Deviation 44.6 fL (36.4-46.3); Red Blood Count 3.45 M/uL (4.20-5.40)
--- NOTE | 2022-12-31 10:18 | Surgery Progress Note ---
Date of Service December 31, 2022 Assessment & Plan (1) SBO (small bowel obstruction): Plan: She is doing well with NGT out, start clears today Encourage ambulation/IS Will advance her diet as tolerated over the weekend Possible discharge Tuesday/Tuesday if she continues to progress well (2) S/P exploratory laparotomy: Admission and Anticipated Discharge Date Admission Date: December 27, 2022 Subjective Pt seen and examined. Pain controlled. Afebrile. Passing more flatus but no BM yet. Physical Exam Constitutional: WD/WN, vitals as above Gastrointestinal (Abdomen): Soft, appropriately tender to palpation Incision with tita, no erythema or drainage Results & Data Vital Signs (Past 12 Hours) Vital Signs Temp Pulse Pulse Resp BP BP Pulse Ox 12/31/22 08:18 36.9 C 66 16 129/68 95 12/31/22 08:03 36.8 C 62 14 130/68 94 12/30/22 23:36 36.6 C 77 18 108/64 97 O2 Del Method 12/31/22 08:18 Room Air 12/31/22 08:03 Room Air 12/30/22 23:36 Room Air PG Care Time/CCT Total # of Minutes Spent Total Time Spent with Patient: Total time spent is greater than 50% in coordination of care (as documented) at patient's floor/unit and/or counseling patient: Coding Level of Care Code 52611 Post Operative Follow-Up Diagnoses SBO (small bowel obstruction) K56.609 S/P exploratory laparotomy Z98.890
[2022-12-31] MEDS: ACETAMINOPHEN 1,000 MG/100 ML VIAL IV PRN ×2 (11:03→20:33)
[2022-12-31] MEDS: PANTOprazole 40 MG in SYRINGE 0 ML IV SCH (12:20)
[2022-12-31] MEDS: ENOXAPARIN INJ 40 MG/0.4 ML SYR SQ SCH (12:21)
[2022-12-31] MEDS ORDERED: MELATONIN 3 MG TAB PO PRN (16:57)
--- NOTE | 2022-12-31 17:03 | Hospitalist Progress Note ---
Date of Service December 31, 2022 Assessment & Plan (1) Small bowel obstruction: Plan: Small bowel obstruction/history of ischemic colitis-taken to OR 02/26/22, Dr Blanco, ex lap w/ small bowel resection, KARISSA, and reanastomosis CTA chest negative for PE Passing flatus, no BM yet, pain controlled NGT removed and tolerating clear liquids diet - slowly advance as tolerated as bowel function returns-keep clears for now -dc IVFs -continue Pantoprazole 40 mg IV daily -continue Zosyn 4.5 g IV every 8 hours bt can likely stop soon -IV APAP and morphine prn pain -follow CBC, BMP, mag, phos (2) Hypothyroidism (acquired): Plan: s/p total thyroidectomy Last TSH 1.2 in our lab system from 2020-presumably she has had this monitored by her PCP -restart po home dose of LT4 when taking po -given prolonged NPO status, will start 1/2 dose IV LT4 with 50 mcg tomorrow-pt does not feel she can swallow pills yet (3) S/P exploratory laparotomy: Plan: as above (4) Glaucoma: Plan: continue home eye gtts (5) Recurrent UTI: Plan: none in 2 years typically on daily Macrobid for prophylaxis which is on hold here while NPO and on ZOsyn holding home estrogen as well Plan DVT proph-Lovenox SQ SCDs Insomnia-ordered melatonin prn sleep and she reports she takes it SL Dispo-continued stay, desires to go to [facility] for respite care on di scharge-CM aware Admission and Anticipated Discharge Date Admission Date: December 27, 2022 Subjective Tolerating clears today, NGT out, passing flatus but no BM yet. Has abd pain but is tolerable. Physical Exam Constitutional: WD/WN, vitals as above Neck: trachea midline, no thyromegaly Respiratory: normal respiratory effort, lungs clear to auscultation Cardiovascular: RRR, no murmur, no edema Chest (Breasts): Chest: normal inspection of chest Gastrointestinal (Abdomen): Inspection/Auscultation: normal bowel sounds; + abdomen abnormal to inspection (midline laparotomy incision with tita, c/d/i) Percussion/Palpation: + abdomen tender (diffuse, mild) and abdomen soft; no guarding Neurologic: moves all extremities and awake; no focal motor deficits Psychiatric: A+Ox3, euthymic affect Results & Data Results & Data Vital Signs (Past 12 Hours) Vital Signs Temp Pulse Pulse Resp BP BP Pulse Ox 12/31/22 15:36 36.7 C 62 16 146/67 H 95 12/31/22 11:29 36.5 C 64 16 138/68 95 12/31/22 08:18 36.9 C 66 16 129/68 95 12/31/22 08:03 36.8 C 62 14 130/68 94 O2 Del Method 12/31/22 15:36 Room Air 12/31/22 11:29 Room Air 12/31/22 08:18 Room Air 12/31/22 08:03 Room Air Laboratory Results CBC, BMP,magnesium reviewed PG Care Time/CCT Total # of Minutes Spent Total Time Spent with Patient: Total time spent is greater than 50% in coordination of care (as documented) at patient's floor/unit and/or counseling patient: Coding Level of Care Code 30738 SUB INP/OBS CARE 2/35MIN Diagnoses Small bowel obstruction K56.609 Hypothyroidism (acquired) E03.9 S/P exploratory laparotomy Z98.890 Glaucoma H40.9 Recurrent UTI N39.0
[2022-12-31] MEDS: TAFLUPROST/PF 1 EA DROPS OPL SCH (19:46)
[2022-12-31] MEDS: SOOTHE EYE OP SCH (19:47)
[2022-12-31] MEDS: NETARSUDIL MESYLAT/LATANOPROST 37 DROPS/2.5 ML BTL OPR SCH (19:48)
[2023-01-01] MEDS: PIPERACILLIN/TAZOBACTAM 4.5 GM in DEXTROSE 5% MINI-B 100 ML IV SCH ×3 (01:11→18:26)
[2023-01-01] MEDS: ONDANSETRON INJ 2 MG/ML 2 ML VIAL IV PRN ×3 (01:30→18:31)
[2023-01-01] MEDS: MoRPHine SULFATE 2 MG/ML CARP IV PRN (05:51)
[2023-01-01] MEDS: ACETAMINOPHEN 1,000 MG/100 ML VIAL IV PRN ×3 (05:54→22:21)
[2023-01-01 07:38] LABS: Basophils # (auto) 0.03 K/uL (0.00-0.20); Basophils % (auto) 0.5 %; Eosinophils # (auto) 0.35 K/uL (0.00-0.50); Eosinophils % (auto) 6.1 %; Hematocrit (blood only) 30.1 % (37.0-47.0); Hemoglobin 10.3 g/dl (12.0-16.0); Immature Granulocytes # (auto) 0.09 K/uL (0.01-0.20); Immature Granulocytes % (auto) 1.6 %; Lymphocytes # (auto) 0.93 K/uL (1.20-3.40); Lymphocytes % (auto) 16.3 %; Mean Corpuscular Hemoglobin 30.6 pg (25.0-34.0); Mean Corpuscular Hgb Conc 34.2 g/dL (32.0-36.0); Mean Corpuscular Volume 89.3 fL (80.0-100.0); Mean Platelet Volume 9.1 fL (9.4-12.4); Monocytes # (auto) 0.48 K/uL (0.11-0.59); Monocytes % (auto) 8.4 %; Neutrophils # (auto) 3.84 K/uL (1.40-6.50); Neutrophils % (auto) 67.1 %; Platelet Count 275 K/uL (130-400); RDW Coefficient of Variation 13.3 % (11.5-14.5); RDW Standard Deviation 43.8 fL (36.4-46.3); Red Blood Count 3.37 M/uL (4.20-5.40); White Blood Count 5.72 K/ul (4.8-10.8)
[2023-01-01 08:07] LABS: Calcium 8.2 mg/dl (8.6-10.3); Magnesium 1.8 mg/dl (1.7-2.4); Potassium 3.8 mmol/L (3.5-5.1)
[2023-01-01 08:12] LABS: BUN Creatinine Ratio 11.7 (10-20); Creatinine Clr Calc Pharmacy 73.3 ml/min; Est GFR (African American) 102.6 ml/min; Est GFR (Non-African American) 88.5 ml/min; Phosphorus 3.3 mg/dl (2.5-4.9)
[2023-01-01] MEDS ORDERED: LEVOTHYROXINE SODIUM 50 MCG in SYRINGE 0 ML IV SCH (09:00)
[2023-01-01] MEDS: ENOXAPARIN INJ 40 MG/0.4 ML SYR SQ SCH (09:23)
[2023-01-01] MEDS: PANTOprazole 40 MG in SYRINGE 0 ML IV SCH (11:07)
--- NOTE | 2023-01-01 14:08 | Hospitalist Progress Note ---
Date of Service January 01, 2023 Assessment & Plan (1) Small bowel obstruction: Plan: Small bowel obstruction/history of ischemic colitis-taken to OR 02/26/22, Dr Blanco, ex lap w/ small bowel resection, KARISSA, and reanastomosis Of note, CTA chest negative for PE NGT removed and tolerating clear liquids diet Passing flatus, did have a BM on the evening of 01/01 that was preceded by severe abdominal pain which improved after the bowel movement -Advance diet to full liquids -Give Ativan SL now for anxiety and sleep -continue Pantoprazole 40 mg IV daily -continue Zosyn 4.5 g IV every 8 hours but can likely stop soon -Continue IV APAP and morphine prn pain although she is trying to avoid taking morphine -follow CBC, BMP, mag, phos and replace electrolytes as needed -Appreciate general surgery management -Check KUB now given abdominal pain preceding bowel movement (2) Hypothyroidism (acquired): Plan: s/p total thyroidectomy Last TSH 1.2 in our lab system from 2020-she is requesting a TSH be checked here tomorrow -restart po home dose of LT4 when taking po better but continue IV LT4 for now 50 mcg daily (3) S/P exploratory laparotomy: Plan: as above (4) Glaucoma: Plan: continue home eye gtts (5) Recurrent UTI: Plan: none in 2 years typically on daily Macrobid for prophylaxis which is on hold here while NPO and on ZOsyn holding home estrogen as well Plan Insomnia-ordered lorazepam SL 0.5 Mg as needed DVT proph-Lovenox SQ SCDs Dispo-continued stay, desires to go to [facility] for respite care on discharge-CM aware Admission and Anticipated Discharge Date Admission Date: December 27, 2022 Subjective Patient seen twice today. The first time was after lunch and she was having some pain but it was manageable, no nausea and was getting tired of having clear liquids. She was passing flatus but no bowel movement yet. She has been ambulating to the bathroom and back but not in the halls yet. Feels tired as she was up all night due to her roommate interrupting her sleep. I saw the patient later in the evening after 1804 severe 10 out of 10 abdominal pain with some nausea which greatly improved after having a bowel movement which was nonbloody and not on melena. She did have some lightheadedness and felt like she was almost going to pass out but she felt better after lying flat in the bed. The pain was down to a 4 out of 10 when I saw her and a KUB was being performed. She is requesting Ativan for anxiety as well as for sleep. The patient is also reporting that she has a Schatzki's ring and is afraid that pills will get stuck there if she is not able to swallow them down properly as of yet and is requesting to remain on IV levothyroxine. Physical Exam Constitutional: WD/WN, vitals as above Neck: trachea midline, no thyromegaly Respiratory: normal respiratory effort, lungs clear to auscultation Cardiovascular: RRR, no murmur, no edema Chest (Breasts): Chest: normal inspection of chest Gastrointestinal (Abdomen): Inspection/Auscultation: normal bowel sounds; + abdomen abnormal to inspection (midline laparotomy incision with tita, c/d/i) Percussion/Palpation: + abdomen tender (diffuse, mild) and abdomen soft; no guarding Neurologic: moves all extremities and awake; no focal motor deficits Psychiatric: A+Ox3, euthymic affect Results & Data Results & Data Vital Signs (Past 12 Hours) Vital Signs Temp Pulse Resp BP Pulse Ox O2 Del Method 01/01/23 07:03 36.8 C 61 16 120/71 95 Room Air Laboratory Results CBC, BMP, magnesium level reviewed PG Care Time/CCT Total # of Minutes Spent Total Time Spent with Patient: Total time spent is greater than 50% in coordination of care (as documented) at patient's floor/unit and/or counseling patient: Coding Level of Care Code 40102 SUB INP/OBS CARE 2/35MIN Diagnoses Small bowel obstruction K56.609 Hypothyroidism (acquired) E03.9 S/P exploratory laparotomy Z98.890 Glaucoma H40.9 Recurrent UTI N39.0
--- NOTE | 2023-01-01 15:24 | Surgery Progress Note ---
Date of Service January 01, 2023 Assessment & Plan (1) S/P exploratory laparotomy: Plan: F/U S/P Exploratory Laparotomy with Small Bowel Resection, POD 5 pt is doing better, passed some flatus, no BM yet, now on clear diet, keep clear diet, wait GI function recover. OOB will F/U Admission and Anticipated Discharge Date Admission Date: December 27, 2022 Subjective F/U S/P Exploratory Laparotomy with Small Bowel Resection, POD 5 pt is doing better, passed some flatus, no BM yet, now on clear diet, tolerated it. no nausea, no vomiting no fever. Physical Exam Constitutional: WD/WN, vitals as above Eyes: PERRL, conjunctivae normal, anicteric sclerae Neck: trachea midline, no thyromegaly Respiratory: normal respiratory effort, lungs clear to auscultation Cardiovascular: RRR, no murmur, no edema Gastrointestinal (Abdomen): no significant tenderness at abdomen, no distend, middle line incision intact, no redness, BS +. Musculoskeletal: no cyanosis or clubbing, extremities motor strength 5/5 Neurologic: patellar DTR's 2+ bilat, sensation intact Psychiatric: A+Ox3, euthymic affect Results & Data Vital Signs (Past 12 Hours) Vital Signs Temp Pulse Resp BP Pulse Ox O2 Del Method 01/01/23 15:14 36.8 C 66 16 118/73 97 Room Air 01/01/23 07:03 36.8 C 61 16 120/71 95 Room Air Laboratory Results Lab Results 12/26/22 12/26/22 12/26/22 Range/Units 21:21 21:50 22:00 WBC 7.20 (4.8-10.8) K/ul RBC 4.72 (4.20-5.40) M/uL Hgb 14.2 (12.0-16.0) g/dl POC Hgb 14.6 (12.0-16.0) g/dl Hct 42.3 (37.0-47.0) % POC Hct 43 (37-47) % MCV 89.6 (80.0-100.0) fL MCH 30.1 (25.0-34.0) pg MCHC 33.6 (32.0-36.0) g/dL RDW Std Deviation 43.4 (36.4-46.3) fL RDW Coeff of Ana Lilia 13.2 (11.5-14.5) % Plt Count 295 (130-400) K/uL MPV 9.0 L (9.4-12.4) fL Immature Gran % (Auto) 0.3 % Neut % (Auto) 68.0 % Lymph % (Auto) 22.5 % [place] % (Auto) 7.1 % Eos % (Auto) 1.3 % Baso % (Auto) 0.8 % Neut # (Auto) 4.90 (1.40-6.50) K/uL Lymph # (Auto) 1.62 (1.20-3.40) K/uL [place] # (Auto) 0.51 (0.11-0.59) K/uL Eos # (Auto) 0.09 (0.00-0.50) K/uL Baso # (Auto) 0.06 (0.00-0.20) K/uL Immature Gran # (Auto) 0.02 (0.01-0.20) K/uL PT 10.9 (9.0-12.0) Seconds INR 1.0 (0.9-1.1) APTT 23.9 (21.0-31.0) Seconds PTT Ratio 0.8 POC Sodium 136 (135-144) mmol/L Sodium 133 L (136-145) mmol/L POC Potassium 3.8 (3.3-5.0) mmol/L Potassium 3.7 (3.5-5.1) mmol/L POC Chloride 101 (101-112) mmol/L Chloride 101 (98-107) mmol/L Carbon Dioxide 22 (21-32) mmol/L POC Total CO2 23 L (24-31) mmol/L Anion Gap 10 (3-11) POC Anion Gap 16.0 (16-25) mmol/L POC BUN 12 (7-18) mg/dl BUN 14 (6-23) mg/dl Creatinine 0.77 (0.6-1.2) mg/dl POC Creatinine 0.7 (0.6-1.3) mg/dl Est Cr Clr Drug Dosing 56.1 ml/min Est GFR ( Amer) 86.9 ml/min Est GFR (Non-Af Amer) 75.0 ml/min BUN/Creatinine Ratio 18.2 (10-20) Glucose 133 H (70-99(Fasting)) mg/dl POC Glucose (70-99) mg/dl POC Glucose (other) 129 H (70-99) mg/dl Lactate 2.9 H* (0.4-2.0) mmol/L Calcium 9.2 (8.6-10.3) mg/dl POC Ioniz Calcium Annabella 1.12 (1.12-1.32) mmol/l Phosphorus (2.5-4.9) mg/dl Magnesium (1.7-2.4) mg/dl Total Bilirubin 0.5 (0.2-1.0) mg/dl AST 17 (13-39) U/L ALT 10 (7-52) U/L Alkaline Phosphatase 97 (34-104) U/L Troponin I High Sens 6.8 (0-14) pg/ml Total Protein 7.2 (6.0-8.3) gm/dl Albumin 4.3 (3.4-5.0) gm/dl Globulin 2.9 (2.5-4.0) gm/dl Albumin/Globulin Ratio 1.5 (0.9-2) Lipase 29 (11-82) U/L 12/26/22 12/27/22 12/28/22 Range/Units 23:51 06:15 07:52 WBC 12.49 H 9.93 (4.8-10.8) K/ul RBC 4.78 3.99 L (4.20-5.40) M/uL Hgb 14.4 12.1 (12.0-16.0) g/dl POC Hgb (12.0-16.0) g/dl Hct 41.5 35.2 L (37.0-47.0) % POC Hct (37-47) % MCV 86.8 88.2 (80.0-100.0) fL MCH 30.1 30.3 (25.0-34.0) pg MCHC 34.7 34.4 (32.0-36.0) g/dL RDW Std Deviation 41.7 44.4 (36.4-46.3) fL RDW Coeff of Ana Lilia 13.2 13.7 (11.5-14.5) % Plt Count 303 263 (130-400) K/uL MPV 9.2 L 9.5 (9.4-12.4) fL Immature Gran % (Auto) 0.6 0.3 % Neut % (Auto) 92.0 82.4 % Lymph % (Auto) 3.4 7.5 % [place] % (Auto) 3.8 9.6 % Eos % (Auto) 0.0 0.0 % Baso % (Auto) 0.2 0.2 % Neut # (Auto) 11.49 H 8.19 H (1.40-6.50) K/uL Lymph # (Auto) 0.43 L 0.74 L (1.20-3.40) K/uL [place] # (Auto) 0.48 0.95 H (0.11-0.59) K/uL Eos # (Auto) 0.00 0.00 (0.00-0.50) K/uL Baso # (Auto) 0.02 0.02 (0.00-0.20) K/uL Immature Gran # (Auto) 0.07 0.03 (0.01-0.20) K/uL PT (9.0-12.0) Seconds INR (0.9-1.1) APTT (21.0-31.0) Seconds PTT Ratio POC Sodium (135-144) mmol/L Sodium 133 L 136 (136-145) mmol/L POC Potassium (3.3-5.0) mmol/L Potassium 4.0 3.7 (3.5-5.1) mmol/L POC Chloride (101-112) mmol/L Chloride 102 106 (98-107) mmol/L Carbon Dioxide 24 26 (21-32) mmol/L POC Total CO2 (24-31) mmol/L Anion Gap 7 4 (3-11) POC Anion Gap (16-25) mmol/L POC BUN (7-18) mg/dl BUN 8 11 (6-23) mg/dl Creatinine 0.73 0.70 (0.6-1.2) mg/dl POC Creatinine (0.6-1.3) mg/dl Est Cr Clr Drug Dosing 59.2 61.7 ml/min Est GFR ( Amer) 92.7 97.5 ml/min Est GFR (Non-Af Amer) 80.0 84.2 ml/min BUN/Creatinine Ratio 11.0 15.7 (10-20) Glucose 192 H 112 H (70-99(Fasting)) mg/dl POC Glucose (70-99) mg/dl POC Glucose (other) (70-99) mg/dl Lactate 1.4 (0.4-2.0) mmol/L Calcium 8.1 L 8.0 L (8.6-10.3) mg/dl POC Ioniz Calcium Annabella (1.12-1.32) mmol/l Phosphorus (2.5-4.9) mg/dl Magnesium 1.8 1.9 (1.7-2.4) mg/dl Total Bilirubin 0.6 0.8 (0.2-1.0) mg/dl AST 15 21 (13-39) U/L ALT 9 9 (7-52) U/L Alkaline Phosphatase 91 64 (34-104) U/L Troponin I High Sens (0-14) pg/ml Total Protein 6.6 5.5 L (6.0-8.3) gm/dl Albumin 4.0 3.2 L (3.4-5.0) gm/dl Globulin 2.6 2.3 L (2.5-4.0) gm/dl Albumin/Globulin Ratio 1.5 1.4 (0.9-2) Lipase (11-82) U/L 12/29/22 12/30/22 12/30/22 Range/Units 06:29 04:47 20:31 WBC 8.12 7.80 (4.8-10.8) K/ul RBC 3.72 L 3.37 L (4.20-5.40) M/uL Hgb 11.3 L 10.1 L (12.0-16.0) g/dl POC Hgb (12.0-16.0) g/dl Hct 33.7 L 30.4 L (37.0-47.0) % POC Hct (37-47) % MCV 90.6 90.2 (80.0-100.0) fL MCH 30.4 30.0 (25.0-34.0) pg MCHC 33.5 33.2 (32.0-36.0) g/dL RDW Std Deviation 46.4 H 44.9 (36.4-46.3) fL RDW Coeff of Ana Lilia 13.8 13.5 (11.5-14.5) % Plt Count 239 239 (130-400) K/uL MPV 9.0 L 9.2 L (9.4-12.4) fL Immature Gran % (Auto) 0.4 0.4 % Neut % (Auto) 77.3 76.6 % Lymph % (Auto) 13.4 13.2 % [place] % (Auto) 8.1 6.4 % Eos % (Auto) 0.4 2.6 % Baso % (Auto) 0.4 0.8 % Neut # (Auto) 6.28 5.98 (1.40-6.50) K/uL Lymph # (Auto) 1.09 L 1.03 L (1.20-3.40) K/uL [place] # (Auto) 0.66 H 0.50 (0.11-0.59) K/uL Eos # (Auto) 0.03 0.20 (0.00-0.50) K/uL Baso # (Auto) 0.03 0.06 (0.00-0.20) K/uL Immature Gran # (Auto) 0.03 0.03 (0.01-0.20) K/uL PT (9.0-12.0) Seconds INR (0.9-1.1) APTT (21.0-31.0) Seconds PTT Ratio POC Sodium (135-144) mmol/L Sodium 139 138 (136-145) mmol/L POC Potassium (3.3-5.0) mmol/L Potassium 3.1 L 3.6 (3.5-5.1) mmol/L POC Chloride (101-112) mmol/L Chloride 109 H 110 H (98-107) mmol/L Carbon Dioxide 26 22 (21-32) mmol/L POC Total CO2 (24-31) mmol/L Anion Gap 4 6 (3-11) POC Anion Gap (16-25) mmol/L POC BUN (7-18) mg/dl BUN 10 12 (6-23) mg/dl Creatinine 0.66 0.57 L (0.6-1.2) mg/dl POC Creatinine (0.6-1.3) mg/dl Est Cr Clr Drug Dosing 65.5 75.8 ml/min Est GFR ( Amer) 99.5 104.4 ml/min Est GFR (Non-Af Amer) 85.8 90.0 ml/min BUN/Creatinine Ratio 15.2 21.1 H (10-20) Glucose 81 71 (70-99(Fasting)) mg/dl POC Glucose 55 L* (70-99) mg/dl POC Glucose (other) (70-99) mg/dl Lactate (0.4-2.0) mmol/L Calcium 7.8 L 7.7 L (8.6-10.3) mg/dl POC Ioniz Calcium Annabella (1.12-1.32) mmol/l Phosphorus (2.5-4.9) mg/dl Magnesium 1.9 1.9 (1.7-2.4) mg/dl Total Bilirubin 0.9 (0.2-1.0) mg/dl AST 26 (13-39) U/L ALT 11 (7-52) U/L Alkaline Phosphatase 56 (34-104) U/L Troponin I High Sens (0-14) pg/ml Total Protein 5.2 L (6.0-8.3) gm/dl Albumin 3.0 L (3.4-5.0) gm/dl Globulin 2.2 L (2.5-4.0) gm/dl Albumin/Globulin Ratio 1.4 (0.9-2) Lipase (11-82) U/L 12/30/22 12/31/22 01/01/23 Range/Units 22:53 06:10 06:38 WBC 6.60 5.72 (4.8-10.8) K/ul RBC 3.45 L 3.37 L (4.20-5.40) M/uL Hgb 10.4 L 10.3 L (12.0-16.0) g/dl POC Hgb (12.0-16.0) g/dl Hct 31.2 L 30.1 L (37.0-47.0) % POC Hct (37-47) % MCV 90.4 89.3 (80.0-100.0) fL MCH 30.1 30.6 (25.0-34.0) pg MCHC 33.3 34.2 (32.0-36.0) g/dL RDW Std Deviation 44.6 43.8 (36.4-46.3) fL RDW Coeff of Ana Lilia 13.6 13.3 (11.5-14.5) % Plt Count 267 275 (130-400) K/uL MPV 9.5 9.1 L (9.4-12.4) fL Immature Gran % (Auto) 0.5 1.6 % Neut % (Auto) 70.9 67.1 % Lymph % (Auto) 14.5 16.3 % [place] % (Auto) 7.1 8.4 % Eos % (Auto) 6.2 6.1 % Baso % (Auto) 0.8 0.5 % Neut # (Auto) 4.68 3.84 (1.40-6.50) K/uL Lymph # (Auto) 0.96 L 0.93 L (1.20-3.40) K/uL [place] # (Auto) 0.47 0.48 (0.11-0.59) K/uL Eos # (Auto) 0.41 0.35 (0.00-0.50) K/uL Baso # (Auto) 0.05 0.03 (0.00-0.20) K/uL Immature Gran # (Auto) 0.03 0.09 (0.01-0.20) K/uL PT (9.0-12.0) Seconds INR (0.9-1.1) APTT (21.0-31.0) Seconds PTT Ratio POC Sodium (135-144) mmol/L Sodium 138 137 (136-145) mmol/L POC Potassium (3.3-5.0) mmol/L Potassium 4.0 3.8 (3.5-5.1) mmol/L POC Chloride (101-112) mmol/L Chloride 110 H 108 H (98-107) mmol/L Carbon Dioxide 18 L 22 (21-32) mmol/L POC Total CO2 (24-31) mmol/L Anion Gap 10 7 (3-11) POC Anion Gap (16-25) mmol/L POC BUN (7-18) mg/dl BUN 10 7 (6-23) mg/dl Creatinine 0.56 L 0.60 (0.6-1.2) mg/dl POC Creatinine (0.6-1.3) mg/dl Est Cr Clr Drug Dosing 78.5 73.3 ml/min Est GFR ( Amer) 105.0 102.6 ml/min Est GFR (Non-Af Amer) 90.6 88.5 ml/min BUN/Creatinine Ratio 17.9 11.7 (10-20) Glucose 56 L 88 (70-99(Fasting)) mg/dl POC Glucose 57 L* (70-99) mg/dl POC Glucose (other) (70-99) mg/dl Lactate (0.4-2.0) mmol/L Calcium 7.9 L 8.2 L (8.6-10.3) mg/dl POC Ioniz Calcium Annabella (1.12-1.32) mmol/l Phosphorus 3.3 (2.5-4.9) mg/dl Magnesium 1.8 1.8 (1.7-2.4) mg/dl Total Bilirubin (0.2-1.0) mg/dl AST (13-39) U/L ALT (7-52) U/L Alkaline Phosphatase (34-104) U/L Troponin I High Sens (0-14) pg/ml Total Protein (6.0-8.3) gm/dl Albumin (3.4-5.0) gm/dl Globulin (2.5-4.0) gm/dl Albumin/Globulin Ratio (0.9-2) Lipase (11-82) U/L
[2023-01-01] MEDS ORDERED: LORazepam 0.5 MG TAB PO STA (17:59)
[2023-01-01] MEDS: NETARSUDIL MESYLAT/LATANOPROST 37 DROPS/2.5 ML BTL OPR SCH (20:09)
[2023-01-01] MEDS: SOOTHE EYE OP SCH (20:10)
[2023-01-01] MEDS: TAFLUPROST/PF 1 EA DROPS OPL SCH (20:10)
--- NOTE | 2023-01-01 20:11 | XRay Report ---
KUB CLINICAL HISTORY: Small bowel obstruction status post surgical resection. Worsening abdominal pain. FINDINGS: 2 AP, portable, supine abdominal radiographs are correlated with abdominal CT dated 023. Midline skin clips are noted. There is no radiographic evidence of bowel obstruction. No evidenc e of intraperitoneal free air is seen on these supine images. There are no abnormal abdominal calcifi cations. The skeletal structures are osteopenic and appear intact. Lumbosacral spondylosis is noted. IMPRESSION: Postsurgical findings as above with radiographic evidence of recurrent small bowel obstru ction. Electronically signed by: Jean Paul Alicea M.D. 01/01/2023 8:10 PM
[2023-01-01] MEDS: LORazepam 0.5 MG TAB PO PRN (22:20)
[2023-01-02] MEDS: PIPERACILLIN/TAZOBACTAM 4.5 GM in DEXTROSE 5% MINI-B 100 ML IV SCH ×2 (01:43→11:21)
[2023-01-02 07:25] LABS: Basophils # (auto) 0.04 K/uL (0.00-0.20); Basophils % (auto) 0.6 %; Eosinophils # (auto) 0.34 K/uL (0.00-0.50); Eosinophils % (auto) 5.1 %; Hematocrit (blood only) 31.8 % (37.0-47.0); Hemoglobin 10.9 g/dl (12.0-16.0); Immature Granulocytes # (auto) 0.02 K/uL (0.01-0.20); Immature Granulocytes % (auto) 0.3 %; Lymphocytes # (auto) 0.81 K/uL (1.20-3.40); Lymphocytes % (auto) 12.2 %; Mean Corpuscular Hgb Conc 34.3 g/dL (32.0-36.0); Mean Corpuscular Volume 87.6 fL (80.0-100.0); Mean Platelet Volume 9.1 fL (9.4-12.4); Monocytes # (auto) 0.56 K/uL (0.11-0.59); Monocytes % (auto) 8.4 %; Neutrophils # (auto) 4.87 K/uL (1.40-6.50); Neutrophils % (auto) 73.4 %; Platelet Count 310 K/uL (130-400); RDW Coefficient of Variation 13.3 % (11.5-14.5); RDW Standard Deviation 42.5 fL (36.4-46.3); Red Blood Count 3.63 M/uL (4.20-5.40); White Blood Count 6.64 K/ul (4.8-10.8)
[2023-01-02 07:40] LABS: BUN Creatinine Ratio 9.7 (10-20); Calcium 8.4 mg/dl (8.6-10.3); Creatinine Clr Calc Pharmacy 61.1 ml/min; Est GFR (African American) 94.3 ml/min; Est GFR (Non-African American) 81.3 ml/min; Magnesium 1.8 mg/dl (1.7-2.4); Phosphorus 3.9 mg/dl (2.5-4.9); Potassium 3.6 mmol/L (3.5-5.1)
[2023-01-02 07:54] LABS: Thyroid Stimulating Hormone 15.535 uIu/ml (0.300-4.500)
[2023-01-02] MEDS: ONDANSETRON INJ 2 MG/ML 2 ML VIAL IV PRN ×2 (08:28→18:28)
[2023-01-02] MEDS: ACETAMINOPHEN 1,000 MG/100 ML VIAL IV PRN (09:22)
[2023-01-02] MEDS: ENOXAPARIN INJ 40 MG/0.4 ML SYR SQ SCH (09:26)
[2023-01-02] MEDS: MoRPHine SULFATE 2 MG/ML CARP IV PRN ×2 (11:21→18:28)
[2023-01-02] MEDS: PANTOprazole 40 MG in SYRINGE 0 ML IV SCH (11:22)
--- NOTE | 2023-01-02 13:34 | Hospitalist Progress Note ---
Date of Service January 02, 2023 Assessment & Plan (1) Small bowel obstruction: Plan: Small bowel obstruction/history of ischemic colitis-taken to OR 02/26/22, Dr Blanco, ex lap w/ small bowel resection, KARISSA, and reanastomosis Of note, CTA chest negative for PE NGT removed and tolerating full liquids diet but not taking in much Passing flatus, did have a BM on the evening of 01/01 that was preceded by severe abdominal pain which improved after the bowel movement. KUB 01/01 negative for obstruction Had another bowel movement on 01/02 and again preceded by significant abdominal cramping Patient is hesitant to advance diet any further -Continue full liquids diet for now -Continue Ativan SL for anxiety and sleep -continue Pantoprazole 40 mg IV daily -Has completed a 7-day course of Zosyn-discontinue -Continue IV APAP and morphine prn pain although she is trying to avoid taking morphine -follow CBC, BMP, mag, phos and replace electrolytes as needed -Appreciate general surgery management (2) Hypothyroidism (acquired): Plan: s/p total thyroidectomy Patient requested TSH be checked here-it is 15 but she has not had any levothyroxine for 5 days until yesterday's IV dose. Could also have euthyroid sick syndrome -restart po home dose of LT4 100 mcg daily -She will recheck her TSH in 4 weeks as an outpatient (3) S/P exploratory laparotomy: Plan: as above (4) Glaucoma: Plan: continue home eye gtts (5) Recurrent UTI: Plan: none in 2 years typically on daily Macrobid for prophylaxis which is on hold here-was on Zosyn holding home estrogen as well She does not want to restart the Macrobid as she does not think she can swallow pills just yet Plan Insomnia-continue lorazepam SL 0.5 Mg as needed DVT proph-Lovenox SQ SCDs Dispo-continued stay, desires to go to [facility] for respite care on discharge-CM aware Admission and Anticipated Discharge Date Admission Date: December 27, 2022 Subjective Patient seems a bit confused today. When asked how she was feeling, her initial response was "terrible!" But then said that she is doing well and that her "adult colic" that has plagued her her whole life is contributing to why she is feeling miserable. She then asked me "what do you know about my ischemic colitis!?" I told her that she did not have ischemic colitis and then she proceeded to tell me the history of when she had ischemic colitis many years ago. She did have another bowel movement today after eating a few bites of full liquids for breakfast. She is concerned about the loose stools and wants to know what I am going to do about it. When I asked her if she wanted Bentyl for her "adult colic" she refused and worried that it would make her constipated. She really is not eating much and does not want her diet advanced. She has intermittent significant severe abdominal cramps that go away with passing gas or stool. She did take some morphine today which has helped. She is able to sleep last night with lorazepam. She would like to be restarted on her home levothyroxine and her sertraline which was not on her home medication reconciliation. She did ambulate the halls yesterday. Physical Exam Constitutional: WD/WN, vitals as above Neck: trachea midline, no thyromegaly Respiratory: normal respiratory effort, lungs clear to auscultation Cardiovascular: RRR, no murmur, no edema Chest (Breasts): Chest: normal inspection of chest Gastrointestinal (Abdomen): Inspection/Auscultation: normal bowel sounds; + abdomen abnormal to inspection (midline laparotomy incision with tita, c/d/i) Percussion/Palpation: + abdomen tender (diffuse, mild) and abdomen soft; no guarding Neurologic: moves all extremities and awake; no focal motor deficits Psychiatric: Orientation: alert, oriented x 3 and cooperative Affect: + anxious affect Results & Data Results & Data Vital Signs (Past 12 Hours) Vital Signs Temp Pulse Resp BP Pulse Ox O2 Del Method 01/02/23 07:00 36.7 C 60 16 132/77 93 Room Air Laboratory Results CBC, BMP, magnesium, TSH reviewed PG Care Time/CCT Total # of Minutes Spent Total Time Spent with Patient: Total time spent is greater than 50% in coordination of care (as documented) at patient's floor/unit and/or counseling patient: Coding Level of Care Code 90776 SUB INP/OBS CARE 2/35MIN Diagnoses Small bowel obstruction K56.609 Hypothyroidism (acquired) E03.9 S/P exploratory laparotomy Z98.890 Glaucoma H40.9 Recurrent UTI N39.0
--- NOTE | 2023-01-02 14:54 | Surgery Progress Note ---
Date of Service January 02, 2023 Assessment & Plan (1) S/P exploratory laparotomy: Plan: F/U S/P Exploratory Laparotomy with Small Bowel Resection, POD 5 pt is doing better, passed some flatus, no BM yet, now on clear diet, keep clear diet, wait GI function recover. OOB will F/U 01/02/2023, 2:53 PN continue treatment, may full liquid diet if pt tolerated clear diet, OOB will F/U Admission and Anticipated Discharge Date Admission Date: December 27, 2022 Subjective F/U S/P Exploratory Laparotomy with Small Bowel Resection, POD 6 pt is doing better, passed some flatus, 2 BM with some diarrhea, now on clear diet, tolerated it. no nausea, no vomiting no fever. mild abdominal pain. Physical Exam Constitutional: WD/WN, vitals as above Eyes: PERRL, conjunctivae normal, anicteric sclerae Neck: trachea midline, no thyromegaly Respiratory: normal respiratory effort, lungs clear to auscultation Cardiovascular: RRR, no murmur, no edema Gastrointestinal (Abdomen): soft, mild tenderness at incision site, no rebound pain, no distend, incision intact, no redness. Musculoskeletal: no cyanosis or clubbing, extremities motor strength 5/5 Neurologic: patellar DTR's 2+ bilat, sensation intact Psychiatric: A+Ox3, euthymic affect Results & Data Vital Signs (Past 12 Hours) Vital Signs Temp Pulse Pulse Resp BP BP Pulse Ox 01/02/23 14:46 36.5 C 66 16 131/75 97 01/02/23 07:00 36.7 C 60 16 132/77 93 O2 Del Method 01/02/23 14:46 Room Air 01/02/23 07:00 Room Air Laboratory Results Lab Results 12/26/22 12/26/22 12/26/22 Range/Units 21:21 21:50 22:00 WBC 7.20 (4.8-10.8) K/ul RBC 4.72 (4.20-5.40) M/uL Hgb 14.2 (12.0-16.0) g/dl POC Hgb 14.6 (12.0-16.0) g/dl Hct 42.3 (37.0-47.0) % POC Hct 43 (37-47) % MCV 89.6 (80.0-100.0) fL MCH 30.1 (25.0-34.0) pg MCHC 33.6 (32.0-36.0) g/dL RDW Std Deviation 43.4 (36.4-46.3) fL RDW Coeff of Ana Lilia 13.2 (11.5-14.5) % Plt Count 295 (130-400) K/uL MPV 9.0 L (9.4-12.4) fL Immature Gran % (Auto) 0.3 % Neut % (Auto) 68.0 % Lymph % (Auto) 22.5 % Brewster % (Auto) 7.1 % Eos % (Auto) 1.3 % Baso % (Auto) 0.8 % Neut # (Auto) 4.90 (1.40-6.50) K/uL Lymph # (Auto) 1.62 (1.20-3.40) K/uL Brewster # (Auto) 0.51 (0.11-0.59) K/uL Eos # (Auto) 0.09 (0.00-0.50) K/uL Baso # (Auto) 0.06 (0.00-0.20) K/uL Immature Gran # (Auto) 0.02 (0.01-0.20) K/uL PT 10.9 (9.0-12.0) Seconds INR 1.0 (0.9-1.1) APTT 23.9 (21.0-31.0) Seconds PTT Ratio 0.8 POC Sodium 136 (135-144) mmol/L Sodium 133 L (136-145) mmol/L POC Potassium 3.8 (3.3-5.0) mmol/L Potassium 3.7 (3.5-5.1) mmol/L POC Chloride 101 (101-112) mmol/L Chloride 101 (98-107) mmol/L Carbon Dioxide 22 (21-32) mmol/L POC Total CO2 23 L (24-31) mmol/L Anion Gap 10 (3-11) POC Anion Gap 16.0 (16-25) mmol/L POC BUN 12 (7-18) mg/dl BUN 14 (6-23) mg/dl Creatinine 0.77 (0.6-1.2) mg/dl POC Creatinine 0.7 (0.6-1.3) mg/dl Est Cr Clr Drug Dosing 56.1 ml/min Est GFR ( Amer) 86.9 ml/min Est GFR (Non-Af Amer) 75.0 ml/min BUN/Creatinine Ratio 18.2 (10-20) Glucose 133 H (70-99(Fasting)) mg/dl POC Glucose (70-99) mg/dl POC Glucose (other) 129 H (70-99) mg/dl Lactate 2.9 H* (0.4-2.0) mmol/L Calcium 9.2 (8.6-10.3) mg/dl POC Ioniz Calcium Annabella 1.12 (1.12-1.32) mmol/l Phosphorus (2.5-4.9) mg/dl Magnesium (1.7-2.4) mg/dl Total Bilirubin 0.5 (0.2-1.0) mg/dl AST 17 (13-39) U/L ALT 10 (7-52) U/L Alkaline Phosphatase 97 (34-104) U/L Troponin I High Sens 6.8 (0-14) pg/ml Total Protein 7.2 (6.0-8.3) gm/dl Albumin 4.3 (3.4-5.0) gm/dl Globulin 2.9 (2.5-4.0) gm/dl Albumin/Globulin Ratio 1.5 (0.9-2) Lipase 29 (11-82) U/L TSH (0.300-4.500) uIu/ml 12/26/22 12/27/22 12/28/22 Range/Units 23:51 06:15 07:52 WBC 12.49 H 9.93 (4.8-10.8) K/ul RBC 4.78 3.99 L (4.20-5.40) M/uL Hgb 14.4 12.1 (12.0-16.0) g/dl POC Hgb (12.0-16.0) g/dl Hct 41.5 35.2 L (37.0-47.0) % POC Hct (37-47) % MCV 86.8 88.2 (80.0-100.0) fL MCH 30.1 30.3 (25.0-34.0) pg MCHC 34.7 34.4 (32.0-36.0) g/dL RDW Std Deviation 41.7 44.4 (36.4-46.3) fL RDW Coeff of Ana Lilia 13.2 13.7 (11.5-14.5) % Plt Count 303 263 (130-400) K/uL MPV 9.2 L 9.5 (9.4-12.4) fL Immature Gran % (Auto) 0.6 0.3 % Neut % (Auto) 92.0 82.4 % Lymph % (Auto) 3.4 7.5 % Brewster % (Auto) 3.8 9.6 % Eos % (Auto) 0.0 0.0 % Baso % (Auto) 0.2 0.2 % Neut # (Auto) 11.49 H 8.19 H (1.40-6.50) K/uL Lymph # (Auto) 0.43 L 0.74 L (1.20-3.40) K/uL Brewster # (Auto) 0.48 0.95 H (0.11-0.59) K/uL Eos # (Auto) 0.00 0.00 (0.00-0.50) K/uL Baso # (Auto) 0.02 0.02 (0.00-0.20) K/uL Immature Gran # (Auto) 0.07 0.03 (0.01-0.20) K/uL PT (9.0-12.0) Seconds INR (0.9-1.1) APTT (21.0-31.0) Seconds PTT Ratio POC Sodium (135-144) mmol/L Sodium 133 L 136 (136-145) mmol/L POC Potassium (3.3-5.0) mmol/L Potassium 4.0 3.7 (3.5-5.1) mmol/L POC Chloride (101-112) mmol/L Chloride 102 106 (98-107) mmol/L Carbon Dioxide 24 26 (21-32) mmol/L POC Total CO2 (24-31) mmol/L Anion Gap 7 4 (3-11) POC Anion Gap (16-25) mmol/L POC BUN (7-18) mg/dl BUN 8 11 (6-23) mg/dl Creatinine 0.73 0.70 (0.6-1.2) mg/dl POC Creatinine (0.6-1.3) mg/dl Est Cr Clr Drug Dosing 59.2 61.7 ml/min Est GFR ( Amer) 92.7 97.5 ml/min Est GFR (Non-Af Amer) 80.0 84.2 ml/min BUN/Creatinine Ratio 11.0 15.7 (10-20) Glucose 192 H 112 H (70-99(Fasting)) mg/dl POC Glucose (70-99) mg/dl POC Glucose (other) (70-99) mg/dl Lactate 1.4 (0.4-2.0) mmol/L Calcium 8.1 L 8.0 L (8.6-10.3) mg/dl POC Ioniz Calcium Annabella (1.12-1.32) mmol/l Phosphorus (2.5-4.9) mg/dl Magnesium 1.8 1.9 (1.7-2.4) mg/dl Total Bilirubin 0.6 0.8 (0.2-1.0) mg/dl AST 15 21 (13-39) U/L ALT 9 9 (7-52) U/L Alkaline Phosphatase 91 64 (34-104) U/L Troponin I High Sens (0-14) pg/ml Total Protein 6.6 5.5 L (6.0-8.3) gm/dl Albumin 4.0 3.2 L (3.4-5.0) gm/dl Globulin 2.6 2.3 L (2.5-4.0) gm/dl Albumin/Globulin Ratio 1.5 1.4 (0.9-2) Lipase (11-82) U/L TSH (0.300-4.500) uIu/ml 12/29/22 12/30/22 12/30/22 Range/Units 06:29 04:47 20:31 WBC 8.12 7.80 (4.8-10.8) K/ul RBC 3.72 L 3.37 L (4.20-5.40) M/uL Hgb 11.3 L 10.1 L (12.0-16.0) g/dl POC Hgb (12.0-16.0) g/dl Hct 33.7 L 30.4 L (37.0-47.0) % POC Hct (37-47) % MCV 90.6 90.2 (80.0-100.0) fL MCH 30.4 30.0 (25.0-34.0) pg MCHC 33.5 33.2 (32.0-36.0) g/dL RDW Std Deviation 46.4 H 44.9 (36.4-46.3) fL RDW Coeff of Ana Lilia 13.8 13.5 (11.5-14.5) % Plt Count 239 239 (130-400) K/uL MPV 9.0 L 9.2 L (9.4-12.4) fL Immature Gran % (Auto) 0.4 0.4 % Neut % (Auto) 77.3 76.6 % Lymph % (Auto) 13.4 13.2 % Brewster % (Auto) 8.1 6.4 % Eos % (Auto) 0.4 2.6 % Baso % (Auto) 0.4 0.8 % Neut # (Auto) 6.28 5.98 (1.40-6.50) K/uL Lymph # (Auto) 1.09 L 1.03 L (1.20-3.40) K/uL Brewster # (Auto) 0.66 H 0.50 (0.11-0.59) K/uL Eos # (Auto) 0.03 0.20 (0.00-0.50) K/uL Baso # (Auto) 0.03 0.06 (0.00-0.20) K/uL Immature Gran # (Auto) 0.03 0.03 (0.01-0.20) K/uL PT (9.0-12.0) Seconds INR (0.9-1.1) APTT (21.0-31.0) Seconds PTT Ratio POC Sodium (135-144) mmol/L Sodium 139 138 (136-145) mmol/L POC Potassium (3.3-5.0) mmol/L Potassium 3.1 L 3.6 (3.5-5.1) mmol/L POC Chloride (101-112) mmol/L Chloride 109 H 110 H (98-107) mmol/L Carbon Dioxide 26 22 (21-32) mmol/L POC Total CO2 (24-31) mmol/L Anion Gap 4 6 (3-11) POC Anion Gap (16-25) mmol/L POC BUN (7-18) mg/dl BUN 10 12 (6-23) mg/dl Creatinine 0.66 0.57 L (0.6-1.2) mg/dl POC Creatinine (0.6-1.3) mg/dl Est Cr Clr Drug Dosing 65.5 75.8 ml/min Est GFR ( Amer) 99.5 104.4 ml/min Est GFR (Non-Af Amer) 85.8 90.0 ml/min BUN/Creatinine Ratio 15.2 21.1 H (10-20) Glucose 81 71 (70-99(Fasting)) mg/dl POC Glucose 55 L* (70-99) mg/dl POC Glucose (other) (70-99) mg/dl Lactate (0.4-2.0) mmol/L Calcium 7.8 L 7.7 L (8.6-10.3) mg/dl POC Ioniz Calcium Annabella (1.12-1.32) mmol/l Phosphorus (2.5-4.9) mg/dl Magnesium 1.9 1.9 (1.7-2.4) mg/dl Total Bilirubin 0.9 (0.2-1.0) mg/dl AST 26 (13-39) U/L ALT 11 (7-52) U/L Alkaline Phosphatase 56 (34-104) U/L Troponin I High Sens (0-14) pg/ml Total Protein 5.2 L (6.0-8.3) gm/dl Albumin 3.0 L (3.4-5.0) gm/dl Globulin 2.2 L (2.5-4.0) gm/dl Albumin/Globulin Ratio 1.4 (0.9-2) Lipase (11-82) U/L TSH (0.300-4.500) uIu/ml 12/30/22 12/31/22 01/01/23 Range/Units 22:53 06:10 06:38 WBC 6.60 5.72 (4.8-10.8) K/ul RBC 3.45 L 3.37 L (4.20-5.40) M/uL Hgb 10.4 L 10.3 L (12.0-16.0) g/dl POC Hgb (12.0-16.0) g/dl Hct 31.2 L 30.1 L (37.0-47.0) % POC Hct (37-47) % MCV 90.4 89.3 (80.0-100.0) fL MCH 30.1 30.6 (25.0-34.0) pg MCHC 33.3 34.2 (32.0-36.0) g/dL RDW Std Deviation 44.6 43.8 (36.4-46.3) fL RDW Coeff of Ana Lilia 13.6 13.3 (11.5-14.5) % Plt Count 267 275 (130-400) K/uL MPV 9.5 9.1 L (9.4-12.4) fL Immature Gran % (Auto) 0.5 1.6 % Neut % (Auto) 70.9 67.1 % Lymph % (Auto) 14.5 16.3 % Brewster % (Auto) 7.1 8.4 % Eos % (Auto) 6.2 6.1 % Baso % (Auto) 0.8 0.5 % Neut # (Auto) 4.68 3.84 (1.40-6.50) K/uL Lymph # (Auto) 0.96 L 0.93 L (1.20-3.40) K/uL Brewster # (Auto) 0.47 0.48 (0.11-0.59) K/uL Eos # (Auto) 0.41 0.35 (0.00-0.50) K/uL Baso # (Auto) 0.05 0.03 (0.00-0.20) K/uL Immature Gran # (Auto) 0.03 0.09 (0.01-0.20) K/uL PT (9.0-12.0) Seconds INR (0.9-1.1) APTT (21.0-31.0) Seconds PTT Ratio POC Sodium (135-144) mmol/L Sodium 138 137 (136-145) mmol/L POC Potassium (3.3-5.0) mmol/L Potassium 4.0 3.8 (3.5-5.1) mmol/L POC Chloride (101-112) mmol/L Chloride 110 H 108 H (98-107) mmol/L Carbon Dioxide 18 L 22 (21-32) mmol/L POC Total CO2 (24-31) mmol/L Anion Gap 10 7 (3-11) POC Anion Gap (16-25) mmol/L POC BUN (7-18) mg/dl BUN 10 7 (6-23) mg/dl Creatinine 0.56 L 0.60 (0.6-1.2) mg/dl POC Creatinine (0.6-1.3) mg/dl Est Cr Clr Drug Dosing 78.5 73.3 ml/min Est GFR ( Amer) 105.0 102.6 ml/min Est GFR (Non-Af Amer) 90.6 88.5 ml/min BUN/Creatinine Ratio 17.9 11.7 (10-20) Glucose 56 L 88 (70-99(Fasting)) mg/dl POC Glucose 57 L* (70-99) mg/dl POC Glucose (other) (70-99) mg/dl Lactate (0.4-2.0) mmol/L Calcium 7.9 L 8.2 L (8.6-10.3) mg/dl POC Ioniz Calcium Annabella (1.12-1.32) mmol/l Phosphorus 3.3 (2.5-4.9) mg/dl Magnesium 1.8 1.8 (1.7-2.4) mg/dl Total Bilirubin (0.2-1.0) mg/dl AST (13-39) U/L ALT (7-52) U/L Alkaline Phosphatase (34-104) U/L Troponin I High Sens (0-14) pg/ml Total Protein (6.0-8.3) gm/dl Albumin (3.4-5.0) gm/dl Globulin (2.5-4.0) gm/dl Albumin/Globulin Ratio (0.9-2) Lipase (11-82) U/L TSH (0.300-4.500) uIu/ml 01/02/23 Range/Units 06:39 WBC 6.64 (4.8-10.8) K/ul RBC 3.63 L (4.20-5.40) M/uL Hgb 10.9 L (12.0-16.0) g/dl POC Hgb (12.0-16.0) g/dl Hct 31.8 L (37.0-47.0) % POC Hct (37-47) % MCV 87.6 (80.0-100.0) fL MCH 30.0 (25.0-34.0) pg MCHC 34.3 (32.0-36.0) g/dL RDW Std Deviation 42.5 (36.4-46.3) fL RDW Coeff of Ana Lilia 13.3 (11.5-14.5) % Plt Count 310 (130-400) K/uL MPV 9.1 L (9.4-12.4) fL Immature Gran % (Auto) 0.3 % Neut % (Auto) 73.4 % Lymph % (Auto) 12.2 % Brewster % (Auto) 8.4 % Eos % (Auto) 5.1 % Baso % (Auto) 0.6 % Neut # (Auto) 4.87 (1.40-6.50) K/uL Lymph # (Auto) 0.81 L (1.20-3.40) K/uL Brewster # (Auto) 0.56 (0.11-0.59) K/uL Eos # (Auto) 0.34 (0.00-0.50) K/uL Baso # (Auto) 0.04 (0.00-0.20) K/uL Immature Gran # (Auto) 0.02 (0.01-0.20) K/uL PT (9.0-12.0) Seconds INR (0.9-1.1) APTT (21.0-31.0) Seconds PTT Ratio POC Sodium (135-144) mmol/L Sodium 140 (136-145) mmol/L POC Potassium (3.3-5.0) mmol/L Potassium 3.6 (3.5-5.1) mmol/L POC Chloride (101-112) mmol/L Chloride 108 H (98-107) mmol/L Carbon Dioxide 26 (21-32) mmol/L POC Total CO2 (24-31) mmol/L Anion Gap 6 (3-11) POC Anion Gap (16-25) mmol/L POC BUN (7-18) mg/dl BUN 7 (6-23) mg/dl Creatinine 0.72 (0.6-1.2) mg/dl POC Creatinine (0.6-1.3) mg/dl Est Cr Clr Drug Dosing 61.1 ml/min Est GFR ( Amer) 94.3 ml/min Est GFR (Non-Af Amer) 81.3 ml/min BUN/Creatinine Ratio 9.7 L (10-20) Glucose 87 (70-99(Fasting)) mg/dl POC Glucose (70-99) mg/dl POC Glucose (other) (70-99) mg/dl Lactate (0.4-2.0) mmol/L Calcium 8.4 L (8.6-10.3) mg/dl POC Ioniz Calcium Annabella (1.12-1.32) mmol/l Phosphorus 3.9 (2.5-4.9) mg/dl Magnesium 1.8 (1.7-2.4) mg/dl Total Bilirubin (0.2-1.0) mg/dl AST (13-39) U/L ALT (7-52) U/L Alkaline Phosphatase (34-104) U/L Troponin I High Sens (0-14) pg/ml Total Protein (6.0-8.3) gm/dl Albumin (3.4-5.0) gm/dl Globulin (2.5-4.0) gm/dl Albumin/Globulin Ratio (0.9-2) Lipase (11-82) U/L TSH 15.535 H (0.300-4.500) uIu/ml
[2023-01-02] MEDS: LEVOTHYROXINE SODIUM 100 MCG TABLET PO SCH (17:13)
[2023-01-02] MEDS: SERTRALINE HCL 50 MG TABLET PO SCH (21:59)
[2023-01-02] MEDS: NETARSUDIL MESYLAT/LATANOPROST 37 DROPS/2.5 ML BTL OPR SCH (22:00)
[2023-01-02] MEDS: TAFLUPROST/PF 1 EA DROPS OPL SCH (22:01)
[2023-01-02] MEDS: SOOTHE EYE OP SCH (22:06)
[2023-01-02] MEDS: LORazepam 0.5 MG TAB PO PRN (22:49)
[2023-01-03] MEDS: MoRPHine SULFATE 2 MG/ML CARP IV PRN (04:41)
[2023-01-03] MEDS: ONDANSETRON INJ 2 MG/ML 2 ML VIAL IV PRN ×2 (04:41→13:06)
[2023-01-03] MEDS: LEVOTHYROXINE SODIUM 100 MCG TABLET PO SCH (06:18)
[2023-01-03 07:13] LABS: Basophils # (auto) 0.05 K/uL (0.00-0.20); Basophils % (auto) 0.6 %; Eosinophils # (auto) 0.19 K/uL (0.00-0.50); Eosinophils % (auto) 2.3 %; Hematocrit (blood only) 31.9 % (37.0-47.0); Hemoglobin 10.8 g/dl (12.0-16.0); Immature Granulocytes # (auto) 0.04 K/uL (0.01-0.20); Immature Granulocytes % (auto) 0.5 %; Lymphocytes # (auto) 0.96 K/uL (1.20-3.40); Lymphocytes % (auto) 11.8 %; Mean Corpuscular Hemoglobin 30.3 pg (25.0-34.0); Mean Corpuscular Hgb Conc 33.9 g/dL (32.0-36.0); Mean Corpuscular Volume 89.6 fL (80.0-100.0); Mean Platelet Volume 9.2 fL (9.4-12.4); Monocytes # (auto) 0.69 K/uL (0.11-0.59); Monocytes % (auto) 8.5 %; Neutrophils % (auto) 76.3 %; Platelet Count 355 K/uL (130-400); RDW Coefficient of Variation 13.5 % (11.5-14.5); RDW Standard Deviation 43.8 fL (36.4-46.3); Red Blood Count 3.56 M/uL (4.20-5.40); White Blood Count 8.13 K/ul (4.8-10.8)
--- NOTE | 2023-01-03 07:49 | Surgery Progress Note ---
Date of Service January 03, 2023 Assessment & Plan (1) History of bowel resection: Plan: Patient reports that she is feeling great like she was yesterday AM. However she has a c/o loose stools that feel painful. Currently denies abdominal pain and nausea. She has been ambulating in the halls. Would like to try a low fiber diet for breakfast and see if this helps her diarrhea. Patient does want it noted that she has a history of colitis and irritable bowel syndrome No c/o abdominal pain, soft non-distended has C/o loose stool and abdominal pain with movements WBC 8 On full liquid diet will advance to fulls Continue ambulation Admission and Anticipated Discharge Date Admission Date: December 27, 2022 Subjective Patient reports that she is feeling great like she was yesterday AM. However she has a c/o loose stools that feel painful. Currently denies abdominal pain and nausea. She has been ambulating in the halls. Would like to try a low fiber diet for breakfast and see if this helps her diarrhea. Patient does want it noted that she has a history of colitis and irritable bowel syndrome Review of Systems Constitutional: no fever and no chills Respiratory: no dyspnea Cardiovascular: no chest pain Gastrointestinal: + abdominal pain (with bowel movements , Not TTP) and + diarrhea/loose stools; no nausea and no vomiting Genitourinary: no problem reported Integumentary: p/o surgical incision Physical Exam Physical Exam: alert oriented Constitutional: well developed, cooperative and comfortable; no acute distress Respiratory: normal respiratory effort and able to speak in complete sentences; no respiratory distress Cardiovascular: Rate/Rhythm: regular rate Gastrointestinal (Abdomen): Inspection/Auscultation: + abdominal surgical incision (tita midline CDI , no s/s of infection noted ); abdomen not distended Percussion/Palpation: abdomen soft; abdomen nontender and no guarding Results & Data Vital Signs (Past 12 Hours) Vital Signs Temp Pulse Resp BP Pulse Ox O2 Del Method 01/03/23 07:14 98.2 F 72 16 128/64 97 Room Air 01/02/23 21:00 Room Air PG Care Time/CCT Total # of Minutes Spent Total Time Spent with Patient: Total time spent is greater than 50% in coordination of care (as documented) at patient's floor/unit and/or counseling patient: Coding Level of Care Code 91138 Post Operative Follow-Up Diagnoses History of bowel resection Z90.49
[2023-01-03] MEDS: ENOXAPARIN INJ 40 MG/0.4 ML SYR SQ SCH (08:31)
--- NOTE | 2023-01-03 08:51 | Surgery Progress Note ---
Date of Service January 03, 2023 Assessment & Plan (1) S/P exploratory laparotomy: Plan: Shes doing well, advance to low fiber If she tolerates this and still has return of bowel function, can be discharged tomorrow Follow up with me TuesdayDecember 25 for staple removal Will continue to follow (2) SBO (small bowel obstruction): Admission and Anticipated Discharge Date Admission Date: December 27, 2022 Subjective Pt seen and examined. Having BM's and tolerating fulls. Afebrile. Had some pain prior to BM's over the weekend. Physical Exam Physical Exam: alert oriented Constitutional: well developed, cooperative and comfortable; no acute distress Respiratory: normal respiratory effort and able to speak in complete sentences; no respiratory distress Cardiovascular: Rate/Rhythm: regular rate Gastrointestinal (Abdomen): Inspection/Auscultation: + abdominal surgical incision (tita midline CDI , no s/s of infection noted ); abdomen not distended Percussion/Palpation: abdomen soft; abdomen nontender and no guar ding Results & Data Vital Signs (Past 12 Hours) Vital Signs Temp Pulse Resp BP Pulse Ox O2 Del Method 01/03/23 07:14 36.8 C 72 16 128/64 97 Room Air 01/02/23 21:00 Room Air PG Care Time/CCT Total # of Minutes Spent Total Time Spent with Patient: Total time spent is greater than 50% in coordination of care (as documented) at patient's floor/unit and/or counseling patient: Coding Level of Care Code 29921 Post Operative Follow-Up Diagnoses S/P exploratory laparotomy Z98.890 SBO (small bowel obstruction) K56.609
[2023-01-03 08:55] LABS: BUN Creatinine Ratio 15.5 (10-20); Calcium 8.3 mg/dl (8.6-10.3); Creatinine Clr Calc Pharmacy 75.8 ml/min; Est GFR (African American) 103.8 ml/min; Est GFR (Non-African American) 89.5 ml/min; Magnesium 1.9 mg/dl (1.7-2.4); Potassium 3.5 mmol/L (3.5-5.1)
[2023-01-03] MEDS: PANTOprazole 40 MG in SYRINGE 0 ML IV SCH (12:03)
[2023-01-03] MEDS: ACETAMINOPHEN 1,000 MG/100 ML VIAL IV PRN (13:12)
--- NOTE | 2023-01-03 15:08 | Hospitalist Progress Note ---
Date of Service January 03, 2023 Assessment & Plan (1) Small bowel obstruction: Plan: Small bowel obstruction/history of ischemic colitis-taken to OR 02/26/22, Dr Blanco, ex lap w/ small bowel resection, KARISSA, and reanastomosis Of note, CTA chest negative for PE NGT removed and advanceing diet clowly Passing flatus, now having numerous loose BMs, some abdominal cramping KUB 01/01 negative for obstruction C. diff negative on 01/03 Discussed care w/ Surgery on 01/03 -advance diet to low fiber -Continue Ativan SL for anxiety and sleep -can now dc Pantoprazole 40 mg IV daily -Has completed a 7-day course of Zosyn -transition to po APAP from IV APAP and continue morphine prn pain although she is trying to avoid taking morphine -follow CBC, BMP, mag and replace electrolytes as needed-no replacement needed now -Appreciate general surgery management-f/u as outpt (2) Hypothyroidism (acquired): Plan: s/p total thyroidectomy Patient requested TSH be checked here-it is 15 but she has not had any levothyroxine for 5 days until yesterday's IV dose. Could also have euthyroid sick syndrome -restarted po home dose of LT4 100 mcg daily -She will recheck her TSH in 4 weeks as an outpatient (3) S/P exploratory laparotomy: Plan: as above (4) Glaucoma: Plan: continue home eye gtts (5) Recurrent UTI: Plan: none in 2 years typically on daily Macrobid for prophylaxis which is on hold here-was on Zosyn holding home estrogen as well She does not want to restart the Macrobid as she does not think she can swallow pills just yet Plan Insomnia-continue lorazepam SL 0.5 Mg as needed and she requests a small supply for home use DVT proph-Lovenox SQ SCDs Dispo-continued stay, desires to go to [facility] for respite care on discharge-CM aware-plan for discharge tomorrow Admission and Anticipated Discharge Date Admission Date: December 27, 2022 Subjective C/o a lot of diarrhea every 10 min throughout the day. Had some full liquids and then a few bites of eggs and toast after diet advanced today by Surgery Has been ambulating without difficulty to bathroom Took morphine this AM more to help control the diarrhea and not as much for pain Physical Exam Constitutional: WD/WN, vitals as above Neck: trachea midline, no thyromegaly Respiratory: normal respiratory effort, lungs clear to auscultation Cardiovascular: RRR, no murmur, no edema Chest (Breasts): Chest: normal inspection of chest Gastrointestinal (Abdomen): Inspection/Auscultation: normal bowel sounds; + abdomen abnormal to inspection (midline laparotomy incision with tita, c/d/i) Percussion/Palpation: + abdomen tender (diffuse, mild, but improved) and abdomen soft; no guarding Neurologic: moves all extremities and awake; no focal motor deficits Psychiatric: Orientation: alert, oriented x 3 and cooperative Affect: + anxious affect Results & Data Results & Data Vital Signs (Past 12 Hours) Vital Signs Temp Pulse Resp BP Pulse Ox O2 Del Method 01/03/23 07:14 36.8 C 72 16 128/64 97 Room Air Laboratory Results CBC, BMP, magnesium, C. diff reviewed PG Care Time/CCT Total # of Minutes Spent Total Time Spent with Patient: Total time spent is greater than 50% in coordination of care (as documented) at patient's floor/unit and/or counseling patient: Coding Level of Care Code 45157 SUB INP/OBS CARE 2/35MIN Diagnoses Small bowel obstruction K56.609 Hypothyroidism (acquired) E03.9 S/P exploratory laparotomy Z98.890 Glaucoma H40.9 Recurrent UTI N39.0
[2023-01-03] MEDS: TAFLUPROST/PF 1 EA DROPS OPL SCH (20:36)
[2023-01-03] MEDS: NETARSUDIL MESYLAT/LATANOPROST 37 DROPS/2.5 ML BTL OPR SCH (20:36)
[2023-01-03] MEDS: SOOTHE EYE OP SCH (20:37)
[2023-01-03] MEDS: SERTRALINE HCL 50 MG TABLET PO SCH (20:38)
[2023-01-03] MEDS: LORazepam 0.5 MG TAB PO PRN (22:26)
[2023-01-04] MEDS: LEVOTHYROXINE SODIUM 100 MCG TABLET PO SCH (06:18)
[2023-01-04 07:27] LABS: Basophils # (auto) 0.04 K/uL (0.00-0.20); Basophils % (auto) 0.6 %; Eosinophils # (auto) 0.23 K/uL (0.00-0.50); Eosinophils % (auto) 3.3 %; Hematocrit (blood only) 29.9 % (37.0-47.0); Hemoglobin 10.3 g/dl (12.0-16.0); Immature Granulocytes # (auto) 0.03 K/uL (0.01-0.20); Immature Granulocytes % (auto) 0.4 %; Lymphocytes # (auto) 1.01 K/uL (1.20-3.40); Lymphocytes % (auto) 14.4 %; Mean Corpuscular Hemoglobin 30.3 pg (25.0-34.0); Mean Corpuscular Hgb Conc 34.4 g/dL (32.0-36.0); Mean Corpuscular Volume 87.9 fL (80.0-100.0); Monocytes # (auto) 0.65 K/uL (0.11-0.59); Monocytes % (auto) 9.2 %; Neutrophils # (auto) 5.07 K/uL (1.40-6.50); Neutrophils % (auto) 72.1 %; Platelet Count 372 K/uL (130-400); RDW Coefficient of Variation 13.9 % (11.5-14.5); RDW Standard Deviation 43.8 fL (36.4-46.3); White Blood Count 7.03 K/ul (4.8-10.8)
[2023-01-04] MEDS: ACETAMINOPHEN SUSP 1000 MG/31.2 ML UDP PO PRN (08:00)
[2023-01-04 08:13] LABS: Calcium 8.3 mg/dl (8.6-10.3); Magnesium 1.8 mg/dl (1.7-2.4); Potassium 3.5 mmol/L (3.5-5.1)
[2023-01-04 08:19] LABS: BUN Creatinine Ratio 16.7 (10-20); Creatinine Clr Calc Pharmacy 81.4 ml/min; Est GFR (African American) 106.2 ml/min; Est GFR (Non-African American) 91.7 ml/min
[2023-01-04] MEDS ORDERED: ACETAMINOPHEN 1,000 MG/100 ML VIAL IV STA (08:33)
[2023-01-04] MEDS ORDERED: oxyCODONE/ACETAMINOPHEN 5mg/325mg TAB PO PRN ×2 (09:10)
--- NOTE | 2023-01-04 09:39 | Surgery Progress Note ---
Date of Service January 04, 2023 Assessment & Plan (1) History of bowel resection: Plan: POD 8 Patient doing well Tylenol for pain control On low fiber diet Has c/o diarrhea with eating Abd soft nondistended no s/s of infection noted VSS CBC BMP WNL Reports going to the [facility] at D/C Doing well from a surgical standpoint, Stable for D/C from our perspective Patient to follow up with Dr. Blanco in 2 weeks as O/P Admission and Anticipated Discharge Date Admission Date: December 27, 2022 Supervising Physician Co-Signing Physician Notes I personally saw and evaluated the patient with Anisha MATOS and agree with the assessment and plan. 77-year-old female POD#8 ex lap, KARISSA, small bowel resection She is tolerating a low fiber diet and has return of bowel function Labs and vitals are normal Pain control is an issue but she does not want anything other than Tylenol If her diarrhea worsens, could check a C.Diff She is stable for discharge from a surgical standpoint, but is hesitant to go today Will arrange follow up for her early next week for staple removal Subjective Patient doing well Tylenol for pain control On low fiber diet Has c/o diarrhea with eating Review of Systems 2 Constitutional: no fever and no chills Respiratory: no dyspnea Cardiovascular: no chest pain Gastrointestinal: + cramping and + diarrhea/loose stools; no nausea and no vomiting Genitourinary: no problem reported Musculoskeletal: no problem reported Physical Exam Physical Exam: alert oriented Constitutional: well developed, cooperative and comfortable; no acute distress Respiratory: normal respiratory effort and able to speak in complete sentences; no respiratory distress Cardiovascular: Rate/Rhythm: regular rate Gastrointestinal (Abdomen): Inspection/Auscultation: + abdominal surgical incision (tita midline CDI , no s/s of infection noted ); abdomen not distended Percussion/Palpation: abdomen soft; abdomen nontender and no guarding Results & Data Vital Signs (Past 12 Hours) Vital Signs Temp Pulse Resp BP Pulse Ox O2 Del Method 01/04/23 06:57 98.0 F 67 16 132/71 94 Room Air PG Care Time/CCT Total # of Minutes Spent Total Time Spent with Patient: Total time spent is greater than 50% in coordination of care (as documented) at patient's floor/unit and/or counseling patient: Coding Level of Care Code 30035 Post Operative Follow-Up Diagnoses History of bowel resection Z90.49
[2023-01-04] MEDS: ONDANSETRON INJ 2 MG/ML 2 ML VIAL IV PRN (12:18)
--- NOTE | 2023-01-04 13:37 | Discharge Summary ---
Discharge Summary Date of Service January 04, 2023 Notes For Next Care Provider Medication Changes From Visit Tylenol changed to 650mg po q4hrs of chewable version Added lorazepam 0.5mg po hs prn #5 tabs Added ondansetron 4mg po q8h prn nausea Admission HPI Per Admitting Provider The patient is a 77-year-old female with a past medical history including piriformis syndrome, glaucoma, lumbar radiculopathy, gross hematuria, urine tract infection, hypothyroidism and history of ischemic colitis. She presents to the emergency department with symptoms as noted above, which she reports are similar to her previous episode of ischemic colitis about 10 years ago. She did have a small volume of emesis while in the emergency department this evening. She denies any recent travels or sick exposures. She denies any recent use of antibiotics or new supplements Principal Dx & Hospital Course #1 = Principal Diagnosis (1) Small bowel obstruction: Small bowel obstruction/history of ischemic colitis-taken to OR 02/26/22, Dr Blanco, ex lap w/ small bowel resection, KARISSA, and reanastomosis Of note, CTA chest negative for PE NGT removed and advanceing diet clowly Passing flatus, now having numerous loose BMs, some abdominal cramping KUB 01/01 negative for obstruction C. diff negative on 01/03 Discussed care w/ Surgery on 01/03 Tolerating low fiber diet-continue on discharge -Continue Ativan SL for anxiety and sleep -Has completed a 7-day course of Zosyn -transition to po APAP -Appreciate general surgery management-f/u as outpt -stable for discharge (2) Hypothyroidism (acquired): s/p total thyroidectomy Patient requested TSH be checked here-it is 15 but she has not had any levothyroxine for 5 days until yesterday's IV dose. Could also have euthyroid sick syndrome -continue po home dose of LT4 100 mcg daily -She will recheck her TSH in 4 weeks as an outpatient (3) S/P exploratory laparotomy: as above (4) Glaucoma: continue home eye gtts (5) Recurrent UTI: none in 2 years typically on daily Macrobid for prophylaxis which is on hold here-was on Zosyn holding home estrogen as well She does not want to restart the Macrobid as she does not think she can swallow pills just yet Plan Insomnia-continue lorazepam SL 0.5 Mg as needed and she requests a small supply for home use Continue Zolft for mood disorder DVT proph-Lovenox SQ SCDs Dispo-dc to [facility], desires to go to [facility] for respite care Discharge Exam Constitutional WD/WN, vitals as above Neck trachea midline, no thyromegaly Respiratory normal respiratory effort, lungs clear to auscultation Cardiovascular RRR, no murmur, no edema Chest (Breasts) Chest: normal inspection of chest Gastrointestinal (Abdomen) Inspection/Auscultation: normal bowel sounds; + abdomen abnormal to inspection (midline laparotomy incision with tita, c/d/i) Percussion/Palpation: + abdomen tender (diffuse, mild, but improved) and abdomen soft; no guarding Neurologic moves all extremities and awake; no focal motor deficits Psychiatric A+Ox3, euthymic affect Orientation: cooperative Updated Medication List Medication Instructions Recorded Confirmed Type levothyroxine 100 mcg tablet 100 mcg PO QAM 01/20/19 12/26/22 History (Synthroid) netarsudil 0.02 %-latanoprost 1 drp OPR HS 01/20/19 12/26/22 History 0.005 % eye drops (Rocklatan) tafluprost (PF) 0.0015 % eye drops 1 drp OPL HS 01/20/19 12/26/22 History in a dropperette (Zioptan (PF)) acetaminophen 650 mg 1,300 mg PO HS 07/17/19 12/26/22 History tablet,extended release (Tylenol 8 Hour) nitrofurantoin macrocrystal 100 mg 100 mg PO HS #90 caps 08/23/19 12/26/22 Rx capsule estradiol 0.01% (0.1 mg/gram) 1 g vaginal 2XWK 01/02/23 01/02/23 History vaginal cream estradiol 0.5 mg tablet 0.5 mg PO Q7D 01/02/23 01/02/23 History sertraline 25 mg tablet 25 mg PO HS 01/02/23 01/02/23 History acetaminophen 325 mg chewable 650 mg (2 x 325 mg) PO Q4H PRN 01/04/23 Rx tablet pain #30 tabs lorazepam 0.5 mg tablet 0.5 mg PO HS PRN insomnia #5 tabs 01/04/23 Rx ondansetron 4 mg disintegrating 4 mg PO Q8H PRN nausea and 01/04/23 Rx tablet vomiting 3 days #12 tabs Hospital Stay Data Consultations 12/27/22 01:01 ED Decision to Admit Stat 12/27/22 03:10 Consult General Surgery Routine Procedures Performed Operation Date: 12/27/22 09:40 Actual Procedures p Exploratory Laparotomy with Small Bowel Resection(Not Applicable) - Oliver Blanco, DO Diagnostic Imagining Performed 12/26/22 21:39 CTA abdomen pelvis w con [CT angio abdomen pelvis w con] Stat CTA chest dissec wo/w con [CT angio chest dissec wo/w con] Stat Pending Results Patient Have Any Pending Studies at Discharge: No Discharge Instructions Given to Patient (Per Discharging Provider) You have tita that will need to come out at your follow up appointment. Please keep surgical area clean and dry Continue low fiber diet Total Time Total Time Spent Total Time Spent (In Minutes): 35 min Coding Level of Care Code 41253 INP/OBS DISCH >30 MIN Diagnoses Small bowel obstruction K56.609 Hypothyroidism (acquired) E03.9 S/P exploratory laparotomy Z98.890 Glaucoma H40.9 Recurrent UTI N39.0
== END 2023-01-04 15:54 | disposition home or self-care (01) | DRG 329 ==
LOC: ED 21:04 → SUATTDRO 12-27 00:56 → EDINP 12-27 00:56 → 2N 12-27 16:47 → 3W 12-30 23:28

== ENCOUNTER 2023-01-06 10:46 | Inpatient (IN) ==
--- NOTE | 2023-01-06 11:09 | Emergency Department Note ---
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 She also feels like the care she was receiving at personal care at the [facility] is inadequate. Patient has had ongoing diarrhea since being discharged from the hospital. Nonbloody. She has had nausea and took Zofran today but has not had any vomiting. She states that she is having a difficult time eating or drinking any fluids because every time she tries, she experiences abdominal cramping and nausea and reflexive diarrhea. She has a history of Schatzki's ring and has had difficulty taking her medications lately. Did finish antibiotics that were prescribed to her, but has not been able to take her Macrobid over the past few days for recurrent UTI. She states that she was discharged to personal care at the [facility] and she does not feel that this care is adequate. She states that she is essentially in a dementia pereyra without any nursing care. Nobody is taking her vital signs. She is trying not to bother them but feels that [facility] and was requesting to speak with a trimming caser. She has not been able to take any pain medication as above and her abdominal pain is significant. There was nothing that occurred today that caused her to come to the emergency department, she feels that the combination of everything above drove her to seek medical care as she feels she needs additional care. She has not had any fevers or chills. No chest pain or shortness of breath. Home Medications Medication Instructions Recorded Confirmed Type levothyroxine 100 mcg tablet 100 mcg PO QAM 01/20/19 01/06/23 History (Synthroid) netarsudil 0.02 %-latanoprost 1 drp OPR HS 01/20/19 01/06/23 History 0.005 % eye drops (Rocklatan) tafluprost (PF) 0.0015 % eye drops 1 drp OPL HS 01/20/19 01/06/23 History in a dropperette (Zioptan (PF)) nitrofurantoin macrocrystal 100 mg 100 mg PO HS #90 caps 08/23/19 01/06/23 Rx capsule estradiol 0.01% (0.1 mg/gram) 1 g vaginal 2XWK 01/02/23 01/06/23 History vaginal cream estradiol 0.5 mg tablet 0.5 mg PO Q7D 01/02/23 01/06/23 History sertraline 25 mg tablet 25 mg PO HS 01/02/23 01/06/23 History acetaminophen 325 mg chewable 650 mg (2 x 325 mg) PO Q4H PRN 01/04/23 01/06/23 Rx tablet pain #30 tabs ondansetron 4 mg disintegrating 4 mg PO Q8H PRN nausea and 01/04/23 01/06/23 Rx tablet vomiting 3 days #12 tabs Ased Eye Drops 1 drp OPB HS 01/06/23 01/06/23 History Allergies Allergy/AdvReac Type Severity Reaction Status Date / Time nickel Allergy Intermediate Rash Verified 01/06/23 14:54 timolol Allergy Unknown Unknown Verified 01/06/23 14:54 Beta-Blockers AdvReac Severe SEVERE Verified 01/06/23 14:54 (Beta-Adrenergic Bloc HYPOTENSION Opioids - Morphine Analogues AdvReac Intermediate Vomiting Verified 01/06/23 14:54 Past Med/Surg History Medical History Hypothyroidism (acquired) Piriformis syndrome Lumbar radiculopathy Poor vision Recurrent UTI Schatzki's ring History of ischemic colitis IBS (irritable bowel syndrome) Hypothyroidism History of Graves' disease GERD (gastroesophageal reflux disease) Glaucoma Thyroid disorder Surgical History History of bowel resection (12/27/22) Exploratory Laparotomy with Small Bowel Resection(Not Applicable) - Oliver Blanco DO History of Achilles tendon repair Rt History of back surgery History of hysterectomy with unilateral oophorectomy History of esophagogastroduodenoscopy (EGD) History of colonoscopy History of thyroidectomy, subtotal Family History Other Nausea and vomiting after administration of anesthetic agent Social History Smoking Status: Never smoker Second Hand Exposure: No; Do You Dip or Chew Tobacco: No; Hx Alcohol Use: Yes Hx Substance Use: No Preferred Language: Mohawk Communication Ability: Effective Communication Ability Comment: Glaucoma Visual Impairment: Severely Limited Silk Opener Required: No Beliefs That Will Affect Care: None Current Living Situation: Personal Care Facility Current Living Situation Comment: [facility] Other Information That Helps Us Care for You: No Feels Safe at Home: Yes Safety Concerns: Feels Safe At This Time Assistive Devices: Glasses and Hospital Bed Physical Exam Vital Signs Vital Signs - 24 hr 01/06/23 10:53 01/06/23 11:00 01/06/23 11:14 Temperature 96.8 F L Temperature Source Oral Pulse Rate 64 67 66 Respiratory Rate 16 15 14 Blood Pressure 140/78 118/70 118/70 Blood Pressure Mean 98 86 86 Pulse Oximetry 99 100 99 Oxygen Delivery Method Room Air Room Air Room Air Sepsis Recent Fever Within 48 Hours No Sepsis New/Unexplained Change in Mental Status N/A Sepsis Action Taken by Nursing No Action Required 01/06/23 12:00 01/06/23 12:15 01/06/23 12:30 Temperature Temperature Source Pulse Rate 60 70 Respiratory Rate 15 Blood Pressure 153/77 H 157/68 H Blood Pressure Mean 102 97 Pulse Oximetry 100 Oxygen Delivery Method Room Air Sepsis Recent Fever Within 48 Hours Sepsis New/Unexplained Change in Mental Status Sepsis Action Taken by Nursing 01/06/23 13:00 01/06/23 13:30 01/06/23 14:00 Temperature Temperature Source Pulse Rate 67 68 71 Respiratory Rate 16 16 16 Blood Pressure 138/68 134/77 125/77 Blood Pressure Mean 108 101 88 Pulse Oximetry 99 94 99 Oxygen Delivery Method Sepsis Recent Fever Within 48 Hours Sepsis New/Unexplained Change in Mental Status Sepsis Action Taken by Nursing 01/06/23 14:40 01/06/23 15:20 01/06/23 15:43 Temperature Temperature Source Pulse Rate 61 64 62 Respiratory Rate 16 13 Blood Pressure 115/76 122/70 Blood Pressure Mean 89 87 Pulse Oximetry 96 Oxygen Delivery Method Sepsis Recent Fever Within 48 Hours Sepsis New/Unexplained Change in Mental Status Sepsis Action Taken by Nursing 01/06/23 16:30 Temperature Temperature Source Pulse Rate 59 L Respiratory Rate 15 Blood Pressure 122/75 Blood Pressure Mean 90 Pulse Oximetry Oxygen Delivery Method Sepsis Recent Fever Within 48 Hours Sepsis New/Unexplained Change in Mental Status Sepsis Action Taken by Nursing CONSTITUTIONAL: Well developed, well nourished, slightly anxious, otherwise pleasant EYES: conjunctivae normal, extraocular muscles intact. ENMT: External ears normal. Nose with normal external appearance, no congestion. Oral mucous membranes are dry. NECK: Full active range of motion. RESPIRATORY: Breathing unlabored and symmetric. Lungs clear to auscultation bilaterally. No wheeze, rales, or rhonchi. CARDIOVASCULAR: Regular rate and rhythm. No murmurs, rubs, or gallops. ABDOMEN: Abdomen is significantly diffusely tender. Incision is intact with tita. There is erythema about the lower half of the incision which is indurated and warm to touch. Not significantly tender. No CVA tenderness bilaterally. MUSCULOSKELETAL: Moves all extremities at all joints without pain or difficulty. SKIN: [place], warm, dry. NEUROLOGIC: Awake, alert, oriented. Gaze is conjugate. Face symmetric, speech normal. Moves head and all four extremities spontaneously. PSYCHIATRIC: Slightly anxious, otherwise normal affect. Course Administered Medications Discontinued Medications Acetaminophen (Ofirmev) 1,000 mg in 100 mls @ 400 mls/hr IV NOW STA Stop: 01/06/23 11:43 Last Infusion: 01/06/23 12:01 Dose: Infused Documented By: Admin: 01/06/23 11:45 Dose: 400 mls/hr Documented By: CHARITO Sodium Chloride (Nss) 500 mls @ 999 mls/hr IV .Q31M ONE Stop: 01/06/23 11:59 Last Infusion: 01/06/23 12:18 Dose: Infused Documented By: Admin: 01/06/23 11:46 Dose: 999 mls/hr Documented By: CHARITO Potassium Chloride (K Ricardo / Wtr) 10 meq in 100 mls @ 100 mls/hr IV ONE ONE Stop: 01/06/23 13:34 Last Infusion: 01/06/23 14:07 Dose: Infused Documented By: Admin: 01/06/23 12:52 Dose: 100 mls/hr Documented By: CHARITO Cefazolin Sodium (Ancef 2000mg) 2,000 mg in 15 mls @ 3.75 mls/min IV NOW STA Stop: 01/06/23 15:12 Last Admin: 01/06/23 15:36 Dose: 3.75 mls/min Documented By: LOTUS Ioversol (Optiray 320 500ml) 90 ml IV ONCE ONE Stop: 01/06/23 14:29 Last Admin: 01/06/23 14:28 Dose: 90 ml Documented By: KALPESH Lorazepam (Lorazepam 1 Mg/1 Ml Syr Ed Inj Use) 0.5 mg IV ONE STA Stop: 01/06/23 12:35 Last Admin: 01/06/23 12:52 Dose: 0.5 mg Documented By: CHARITO Medical Decision Making Differential Diagnosis Postoperative pain, postoperative infection, cellulitis, abscess, small bowel obstruction, ischemic colitis, C. difficile, gastroenteritis, UTI, pyelonephritis, among other pathology Medical Records Attestation: I reviewed the patient's medical records. (Reviewed recent inpatient notes and general surgery notes) Laboratory Data 01/06/23 11:10 01/06/23 11:10 Lab Results 01/06/23 01/06/23 01/06/23 Range/Units 11:10 11:51 15:00 WBC 9.62 (4.8-10.8) K/ul RBC 3.70 L (4.20-5.40) M/uL Hgb 11.3 L (12.0-16.0) g/dl Hct 33.0 L (37.0-47.0) % MCV 89.2 (80.0-100.0) fL MCH 30.5 (25.0-34.0) pg MCHC 34.2 (32.0-36.0) g/dL RDW Std Deviation 46.2 (36.4-46.3) fL RDW Coeff of Ana Lilia 14.6 H (11.5-14.5) % Plt Count 469 H (130-400) K/uL MPV 9.2 L (9.4-12.4) fL Immature Gran % (Auto) 0.2 % Neut % (Auto) 79.4 % Lymph % (Auto) 11.2 % [place] % (Auto) 7.3 % Eos % (Auto) 1.2 % Baso % (Auto) 0.7 % Neut # (Auto) 7.63 H (1.40-6.50) K/uL Lymph # (Auto) 1.08 L (1.20-3.40) K/uL [place] # (Auto) 0.70 H (0.11-0.59) K/uL Eos # (Auto) 0.12 (0.00-0.50) K/uL Baso # (Auto) 0.07 (0.00-0.20) K/uL Immature Gran # (Auto) 0.02 (0.01-0.20) K/uL Sodium 138 (136-145) mmol/L Potassium 3.2 L (3.5-5.1) mmol/L Chloride 106 (98-107) mmol/L Carbon Dioxide 20 L (21-32) mmol/L Anion Gap 12 H (3-11) BUN 9 (6-23) mg/dl Creatinine 0.56 L (0.6-1.2) mg/dl Est Cr Clr Drug Dosing 73.7 ml/min Est GFR ( Amer) 105.0 ml/min Est GFR (Non-Af Amer) 90.6 ml/min BUN/Creatinine Ratio 16.1 (10-20) Glucose 100 H (70-99(Fasting)) mg/dl Lactate 1.2 (0.4-2.0) mmol/L Calcium 8.5 L (8.6-10.3) mg/dl Magnesium 1.8 (1.7-2.4) mg/dl Total Bilirubin 0.4 (0.2-1.0) mg/dl AST 28 (13-39) U/L ALT 56 H (7-52) U/L Alkaline Phosphatase 91 (34-104) U/L C-Reactive Protein 2.69 H (0-0.5) mg/dl Total Protein 6.3 (6.0-8.3) gm/dl Albumin 3.5 (3.4-5.0) gm/dl Globulin 2.8 (2.5-4.0) gm/dl Albumin/Globulin Ratio 1.3 (0.9-2) Lipase 64 (11-82) U/L SARS-CoV-2 (PCR) NEGATIVE (Negative) Imaging Data Radiologist's Impression: Abdomen/Pelvis CT 01/06/23 12:25 CT abd pelvis IV con only CLINICAL HISTORY: SBO w/resection ongoing diarrhea pain skin erythem TECHNIQUE: Helical axial images of the abdomen and pelvis were obtained and displayed. Automated dose lowering techniques and/or adjustment according to patient size were utilized for this exam. This exam was performed with intravenous contrast. CT DOSE: 631.82 mGy.cm COMPARISON: Comparison is made to CT abdomen pelvis 12/26/2022 FINDINGS: Lower chest: Bibasilar atelectasis versus scarring is seen. Small right pleural effusion is seen. Liver: Focal fatty changes are noted about the falciform ligament. Gallbladder and biliary tree: No calcified gallstones. Normal caliber wall. No intra- or extrahepatic biliary ductal dilation. Pancreas: Unremarkable, no focal lesions. Spleen: Unremarkable. Adrenals: Unremarkable. Kidneys and ureters: Unremarkable. Bladder: Limited evaluation due to underdistention. Reproductive organs: Unremarkable. Bowel: Diverticulosis is seen without diverticulitis. The appendix is normal. Postsurgical changes are seen in the small bowel. Lymph nodes Retroperitoneal: Unremarkable. Pelvic: Unremarkable. Mesenteric: Unremarkable. Peritoneum: Small amount of free fluid is seen in the pelvis measuring simple fluid density. Vessels: Atherosclerotic calcifications are seen. Abdominal wall: Incisional changes seen with associated edema and a small amount of subcutaneous emphysema and herniated fat. Bones: Minimal degenerative changes are seen. IMPRESSION: 1. Post surgical changes are seen. No evidence of bowel ischemia is seen. No drainable fluid collections. 2. Small pelvic free fluid is likely reactive. 3. Diverticulosis without diverticulitis. 4. Additional findings as above. ACT 112: Negative or not required by law. Electronically signed by: Kvng Castañeda M.D. 01/06/2023 3:01 PM MDM Narrative 77-year-old female returns to the emergency department, recent small bowel obstruction resulting in bowel resection. Has had ongoing abdominal pain, nausea, abdominal cramping, diarrhea, difficulty with p.o. intake. See above for further details. When I evaluated the patient her vitals were normal. She was slightly anxious. She has some erythema about the lower half of the incision concerning for possible cellulitis or underlying abscess. Her abdomen is diffusely tender to palpation. Oral mucous membranes are dry. Patient was given IV Tylenol. She declined anything stronger for pain medication at this time. She was given gentle IV fluids. She accepted a small dose of Ativan for relaxation. Labs were obtained. Case discussed with ED attending Dr. Sandoval. Given history of ischemic colitis, decided to wait for lactate to determine CT abdomen pelvis imaging (CT with contrast versus CT angiogram) Lactate normal. Remainder of labs: No leukocytosis. Stable anemia. Slight hypokalemia at 3.2 repleted IV. Anion gap slightly elevated at 12. Normal renal function. Nonspecific elevation of ALT at 56. Patient rested comfortably. Her CT abdomen pelvis is negative for acute process. UTI prophylaxis medications were reviewed with ED clinical pharmacist given desire to treat the patient for possible cellulitis with Anc. Per chart review, UTIs have been E. coli which should be covered by Ancef. This was administered IV. it appears the patient is not receiving the care she requires at the [facility]. She has not been tolerating p.o. well and requires IV medication as well as IV fluids. Will admit the patient as she will require PT and OT evaluation and likely placement into rehab. She was comfortable with this plan. Case discussed with ED attending Dr. Sandoval who also evaluated patient at bedside and is agreeable with this plan. I discussed the case with Dr. Lucio with the [facility] hospitalist group who agrees to admit the patient for ongoing management. Impression Abdominal wall cellulitis, Abdominal pain, Infected incision, Diarrhea, Nausea Discharge Plan Visit Data Chief Complaint: Abdominal Pain ED Provider: Hussein Sandoval ED Midlevel Provider: Robles Bustamante Discharge Problem: Abdominal wall cellulitis, Abdominal pain, Infected incision, Diarrhea, Nausea Patient Disposition: Admitted As Inpatient Discharge Instructions Interventions: ED Discharge Assessment Last Done: 01/06/23 18:29 Discharge Problem: Abdominal pain Qualifiers: Abdominal location: generalized Qualified Code(s): R10.84 - Generalized abdominal pain Diarrhea Qualifiers: Diarrhea type: unspecified type Qualified Code(s): R19.7 - Diarrhea, unspecified
[2023-01-06] MEDS ORDERED: SODIUM CHLORIDE 0.9% 500 ML IV ONE (11:29)
[2023-01-06] MEDS ORDERED: ACETAMINOPHEN 1,000 MG/100 ML VIAL IV STA (11:29)
[2023-01-06 11:30] LABS: Basophils # (auto) 0.07 K/uL (0.00-0.20); Basophils % (auto) 0.7 %; Eosinophils # (auto) 0.12 K/uL (0.00-0.50); Eosinophils % (auto) 1.2 %; Hemoglobin 11.3 g/dl (12.0-16.0); Immature Granulocytes # (auto) 0.02 K/uL (0.01-0.20); Immature Granulocytes % (auto) 0.2 %; Lymphocytes # (auto) 1.08 K/uL (1.20-3.40); Lymphocytes % (auto) 11.2 %; Mean Corpuscular Hemoglobin 30.5 pg (25.0-34.0); Mean Corpuscular Hgb Conc 34.2 g/dL (32.0-36.0); Mean Corpuscular Volume 89.2 fL (80.0-100.0); Mean Platelet Volume 9.2 fL (9.4-12.4); Monocytes % (auto) 7.3 %; Neutrophils # (auto) 7.63 K/uL (1.40-6.50); Neutrophils % (auto) 79.4 %; Platelet Count 469 K/uL (130-400); RDW Coefficient of Variation 14.6 % (11.5-14.5); RDW Standard Deviation 46.2 fL (36.4-46.3); White Blood Count 9.62 K/ul (4.8-10.8)
[2023-01-06 11:35] LABS: Albumin Level 3.5 gm/dl (3.4-5.0); Bilirubin,Total 0.4 mg/dl (0.2-1.0); Calcium 8.5 mg/dl (8.6-10.3); Potassium 3.2 mmol/L (3.5-5.1)
[2023-01-06 11:41] LABS: Albumin Globulin Ratio 1.3 (0.9-2); BUN Creatinine Ratio 16.1 (10-20); Creatinine Clr Calc Pharmacy 73.7 ml/min; Est GFR (Non-African American) 90.6 ml/min; Globulin 2.8 gm/dl (2.5-4.0); Total Protein 6.3 gm/dl (6.0-8.3)
[2023-01-06 12:24] LABS: Magnesium 1.8 mg/dl (1.7-2.4)
[2023-01-06] MEDS ORDERED: LORazepam 1 MG/1 ML SYR ED Inj Use IV STA (12:34)
[2023-01-06] MEDS ORDERED: POTASSIUM CHLORIDE / WTR 10 MEQ/100 ML PLCT IV ONE (12:35)
[2023-01-06] MEDS ORDERED: OPTIRAY 320 500ml IV ONE (14:28)
--- NOTE | 2023-01-06 15:04 | CT Scan Report ---
CT abd pelvis IV con only CLINICAL HISTORY: SBO w/resection ongoing diarrhea pain skin erythem TECHNIQUE: Helical axial images of the abdomen and pelvis were obtained and displayed. Automated dose lowering techniques and/or adjustment according to patient size were utilized for this exam. This e xam was performed with intravenous contrast. CT DOSE: 631.82 mGy.cm COMPARISON: Comparison is made to CT abdomen pelvis 12/26/2022 FINDINGS: Lower chest: Bibasilar atelectasis versus scarring is seen. Small right pleural effusion is seen. Liver: Focal fatty changes are noted about the falciform ligament. Gallbladder and biliary tree: No calcified gallstones. Normal caliber wall. No intra- or extrahepatic biliary ductal dilation. Pancreas: Unremarkable, no focal lesions. Spleen: Unremarkable. Adrenals: Unremarkable. Kidneys and ureters: Unremarkable. Bladder: Limited evaluation due to underdistention. Reproductive organs: Unremarkable. Bowel: Diverticulosis is seen without diverticulitis. The appendix is normal. Postsurgical changes ar e seen in the small bowel. Lymph nodes Retroperitoneal: Unremarkable. Pelvic: Unremarkable. Mesenteric: Unremarkable. Peritoneum: Small amount of free fluid is seen in the pelvis measuring simple fluid density. Vessels: Atherosclerotic calcifications are seen. Abdominal wall: Incisional changes seen with associated edema and a small amount of subcutaneous emph ysema and herniated fat. Bones: Minimal degenerative changes are seen. IMPRESSION: 1. Post surgical changes are seen. No evidence of bowel ischemia is seen. No drainable fluid collect ions. 2. Small pelvic free fluid is likely reactive. 3. Diverticulosis without diverticulitis. 4. Additional findings as above. ACT 112: Negative or not required by law. Electronically signed by: Kvng Castañeda M.D. 01/06/2023 3:01 PM
[2023-01-06] MEDS ORDERED: ceFAZolin 2000MG 2,000 MG/15 ML SYR IV STA (15:09)
--- NOTE | 2023-01-06 15:10 | Emergency Department Note ---
ED Visit Note I was consulted by the Advanced Practice Provider. I personally made/approved the management plan and take responsibility for the patient management. I performed a substantive portion of the visit. This includes the aspects of: -History/Physical/Personally seeing the patient. -Saw the patient independently, she states that she has been having this diarrhea and abdominal pain since having the anastomosis/surgery. She notes he is feel like he is dwindling current facility and may need increased level of care. I did examine her abdomen showing surgical wound with tita. There is some slight erythema laterally on the left lower margin of the surgical wound. She is significantly tender at this. Not feeling fluctuance with this represent developing cellulitis. Discussed with PA, will treat this. - MDM -Discussed need for CT imaging, lactic acid level with patient previous ischemic colitis and recent surgery. CT imaging is reviewed. Will admit based on patient's continued diarrhea as well as need for rehab facility. - I independently interpreted the following studies: Blood work reviewed showing no leukocytosis, slight anemia -, Otherwise potassium is slightly low at 3.2, slight anion gap of 12, ALT elevation isolated without clear abnormality. Lactic acid level not elevated. Lipase negative. - >50% time spent by physician .
--- NOTE | 2023-01-06 15:57 | History & Physical Report ---
Date of Service January 06, 2023 Assessment & Plan (1) Diarrhea: Plan: Diarrhea, abdominal cramping/pain Since bowel resection, is not worsening but also not improving since No evidence of recurrent SBO, bowel ischemia, or intra-abdominal infection on the Appendix is normal-appearing. No biliary tree abnormalities are noted C. difficile and stool bio fire are pending Patient with easy satiety and intermittent nausea. Will continue supplemental fluids and IV Tylenol until clinically progressed (2) Physical deconditioning: Plan: Physical deconditioning, poor p.o. in the Patient has felt progressively weak and with poor nutrition since discharge. Requests PT/OT and rehab. PT/OT consulted, CM consulted Multiple IV fluids as noted Nutrition consulted (3) Abdominal wall cellulitis: Plan: Surgical site with small approximately 8 x 5 cm area of demarcated slight erythema without purulence or fluctuance. Patient reports this is. No signs of deep infection or abscess on CT Will treat with cefazolin every 8 hours. If worsening or any purulence is appreciated --> Vancomycin. No history of MRSA No leukocytosis, patient is not septic appearing CRP pending (4) History of bowel resection: Plan: S/p bowel resection 02/26/22 - CT-A/P:1. Post surgical changes are seen. No evidence of bowel ischemia is seen. No drainable fluid collections. 2. Small pelvic free fluid is likely reactive. 3. Diverticulosis without diverticulitis. 4. Additional findings as above. -Patient is with intermittent diarrhea, no evidence of recurrent obstruction - No leukocytosis.. CRP trended Hypokalemia, repleted Lactate normal (5) Hypothyroidism (acquired): Plan: Hypothyroidism TSH pending Continue Synthroid (6) GERD (gastroesophageal reflux disease): Plan: Pepcid [place] Plan DVT prophylaxis: Heparin Diet: Patient feels that she would like to try to tolerate a low residue diet rather than clears for bowel rest. No intra-abdominal infection or SBO, will trial low residue diet as tolerated Disposition: Medical/surgical CODE STATUS: DNR/DN History of Present Illness Primary Care Provider: Carlos Soliman MD Rody is a 77-year-old female with ah x of SBO 10 days ago s/p bowel resection 02/26/22 and was discharged back to the [facility] unit. She feel she does not get good care there, has been getting weaker, and has had ongoing difficulty with abdominal cramping and PO intake overall since discharge which has not been improving. She requests placement for rehab with goal of getting stronger prior to return to [facility]. Discussed w/ CM while in ER, will require admission and pt/ot for this. Repeat CT appears stable with post op changes and no evidence of intra-abdomianl infeciton. Inferior aspect of her surgical site was noted to be with slightly increased erythema and tenderness concerning for cellulitis, was covered with keflex in the ER.History of small bowel obstruction and ischemic colitis. Per Pt: Rody reports she is having a failure to thrive.Ont he she had abdominal pain, she had lysis of adhesions and bowel resection. She feels since the NGT came out she has just not done well. Expected it would slowly improve over a few days, but she has had minimal appetite and has been getting weaker and weaker at the [place]. Treid to go for a short walk and was to fatigued to finished and had increased diarrhea as well. She reports she does no ttolerate narcotics due to nausea, chewable tylenol did not help her abdominal discomfort. Has trouble even keeping down her thryoid medication. She has not been able to take macrobid for her chronic UTIs either. She has contineud to have diarrhea immediately after after. [place] swell between meals, but after 1-2 bites of scrambled eggs gets stomach cramps and then has to go to the restroom. Diarrhea is completely liquid. No blood/melena. No light/jun colored bowel movements. C. diff test prior to discharge last Tuesday was negative at the time. Continues to hae abdominal pain 'which comes and goes. Worse with meals and cramps'. IV tylenol improves pain to a 2-3/10, pain gets up to a 10 with cramps after eating. THis pain is different and much less than the pain with her ischemic/necrotic bowel. Also has a sharper/crampy/burnign quality which is different. Thinks her surgical site is doing well, but does hurt to move. Denies urinary symptoms, but notes she has not been able to take her suppressive Macrobid Medical History: Reviewed Medications: Reviewed Surgical History: Reviewed Family history: Reviewed Allergies: Reviewed Social History: No tobacco/etoh Code Status: DNR/DNI Allergies Allergy/AdvReac Type Severity Reaction Status Date / Time nickel Allergy Intermediate Rash Verified 01/06/23 14:54 timolol Allergy Unknown Unknown Verified 01/06/23 14:54 Beta-Blockers AdvReac Severe SEVERE Verified 01/06/23 14:54 (Beta-Adrenergic Bloc HYPOTENSION Opioids - Morphine Analogues AdvReac Intermediate Vomiting Verified 01/06/23 14:54 Home Medications Medication Instructions Recorded Confirmed Type levothyroxine 100 mcg tablet 100 mcg PO QAM 01/20/19 01/06/23 History (Synthroid) netarsudil 0.02 %-latanoprost 1 drp OPR HS 01/20/19 01/06/23 History 0.005 % eye drops (Rocklatan) tafluprost (PF) 0.0015 % eye drops 1 drp OPL HS 01/20/19 01/06/23 History in a dropperette (Zioptan (PF)) nitrofurantoin macrocrystal 100 mg 100 mg PO HS #90 caps 08/23/19 01/06/23 Rx capsule estradiol 0.01% (0.1 mg/gram) 1 g vaginal 2XWK 01/02/23 01/06/23 History vaginal cream estradiol 0.5 mg tablet 0.5 mg PO Q7D 01/02/23 01/06/23 History sertraline 25 mg tablet 25 mg PO HS 01/02/23 01/06/23 History acetaminophen 325 mg chewable 650 mg (2 x 325 mg) PO Q4H PRN 01/04/23 01/06/23 Rx tablet pain #30 tabs ondansetron 4 mg disintegrating 4 mg PO Q8H PRN nausea and 01/04/23 01/06/23 Rx tablet vomiting 3 days #12 tabs Ased Eye Drops 1 drp OPB HS 01/06/23 01/06/23 History Past Med/Surg History Medical History (Updated 01/06/23 @ 16:30 by Christiano Lucio MD) Hypothyroidism (acquired) Piriformis syndrome Lumbar radiculopathy Poor vision Recurrent UTI Schatzki's ring History of ischemic colitis IBS (irritable bowel syndrome) Hypothyroidism History of Graves' disease GERD (gastroesophageal reflux disease) Glaucoma Thyroid disorder Surgical History History of bowel resection (12/27/22) Exploratory Laparotomy with Small Bowel Resection(Not Applicable) - Oliver Blanco, DO History of Achilles tendon repair Rt History of back surgery History of hysterectomy with unilateral oophorectomy History of esophagogastroduodenoscopy (EGD) History of colonoscopy History of thyroidectomy, subtotal Family History Other Nausea and vomiting after administration of anesthetic agent Social History Smoking Status: Never smoker Second Hand Exposure: No; Do You Dip or Chew Tobacco: No; Hx Alcohol Use: No Hx Substance Use: No Preferred Language: Icelandic Communication Ability: Effective Communication Ability Comment: Glaucoma Visual Impairment: Severely Limited Animal Therapist Required: No Beliefs That Will Affect Care: None Current Living Situation: Spouse Current Living Situation Comment: [facility] Feels Safe at Home: Yes Assistive Devices: None Physical Exam Physical Exam: General: A&Ox3. NAD. Cooperative. HEENT: Atraumatic, normocephalic. EoM intact. Vision/hearing intact Pulm: Symmetrical chest rise. No increased work of breathing. No respiratory distress. Cardiac: RRR. Radial pulses intact and symmetrical. Abdominal: Soft, no guarding. Mild TTP mid low abdomen. No fluctuance. Ext: warm, dry. NT. No edema Results & Data Results & Data Vital Signs (Past 12 Hours) Vital Signs Temp Pulse Resp BP Pulse Ox O2 Del Method 01/06/23 15:43 62 01/06/23 12:15 70 01/06/23 12:00 60 15 153/77 H 100 Room Air 01/06/23 11:14 66 14 118/70 99 Room Air 01/06/23 11:00 67 15 118/70 100 Room Air 01/06/23 10:53 36 C L 64 16 140/78 99 Room Air PG Care Time/CCT Total # of Minutes Spent Total Time Spent with Patient: Total time spent is greater than 50% in coordination of care (as documented) at patient's floor/unit and/or counseling patient: Coding Level of Care Code 33871 INT INP/OBS CARE 3/75MIN Diagnoses Diarrhea R19.7 Diarrhea type: unspecified type Physical deconditioning R53.81 Abdominal wall cellulitis L03.311 History of bowel resection Z90.49 Hypothyroidism (acquired) E03.9 GERD (gastroesophageal reflux disease) K21.9 (1) Diarrhea Diarrhea type: unspecified type Qualified Code(s): R19.7 - Diarrhea, unspecified
[2023-01-06 17:15] LABS: C Reactive Protein 2.69 mg/dl (0-0.5)
[2023-01-06] MEDS ORDERED: MoRPHine SULFATE 2 MG/ML CARP IV PRN (18:31)
[2023-01-06] MEDS ORDERED: PLASMA-LYTE A 1,000 ML IV SCH (18:50)
[2023-01-06] MEDS: POTASSIUM CHLORIDE / WTR 10 MEQ/100 ML PLCT IV SCH ×3 (19:39→22:37)
[2023-01-06 19:42] LABS: Appearance Urine Clear (Clear); Bilirubin Urine Negative (Negative); Blood Urine Negative (Negative); Color Urine Yellow; Glucose Urine UA Negative (Negative); Ketones Urine 2+ (Negative); Leukocyte Esterase Urine Negative (Negative); Nitrite Urine Negative (Negative); Protein Urine Negative (Negative); Specific Gravity Urine > 1.045 (1.000-1.030); Urobilinogen Urine Negative (Negative); pH Urine 6.5 (4.5-7.5)
[2023-01-06] MEDS: nitrofurantoin macrocrystaL 50 MG CAP PO SCH (20:31)
[2023-01-06] MEDS: SERTRALINE HCL 50 MG TABLET PO SCH (20:32)
[2023-01-06] MEDS: NETARSUDIL MESYLAT/LATANOPROST 37 DROPS/2.5 ML BTL OPR SCH (20:33)
[2023-01-06] MEDS: TAFLUPROST/PF 1 EA DROPS OPL SCH (20:34)
[2023-01-06] MEDS: ACETAMINOPHEN 1,000 MG/100 ML VIAL IV PRN (21:09)
[2023-01-06] MEDS: ceFAZolin 2000MG 2,000 MG/15 ML SYR IV SCH (21:10)
[2023-01-06] MEDS: ONDANSETRON INJ 2 MG/ML 2 ML VIAL IV PRN (21:12)
[2023-01-07] MEDS ORDERED: [UNRECOGNIZED DRUG - REMARK] SCH
[2023-01-07] MEDS: ONDANSETRON INJ 2 MG/ML 2 ML VIAL IV PRN ×2 (02:37→09:38)
[2023-01-07] MEDS: MoRPHine SULFATE 2 MG/ML CARP IV PRN (02:44)
[2023-01-07] MEDS: ceFAZolin 2000MG 2,000 MG/15 ML SYR IV SCH ×4 (05:46→22:57)
[2023-01-07] MEDS: LEVOTHYROXINE SODIUM 100 MCG TABLET PO SCH (05:46)
[2023-01-07 06:41] LABS: Basophils # (auto) 0.05 K/uL (0.00-0.20); Basophils % (auto) 0.7 %; Hematocrit (blood only) 29.4 % (37.0-47.0); Hemoglobin 9.9 g/dl (12.0-16.0); Immature Granulocytes # (auto) 0.01 K/uL (0.01-0.20); Immature Granulocytes % (auto) 0.1 %; Lymphocytes # (auto) 1.09 K/uL (1.20-3.40); Lymphocytes % (auto) 16.1 %; Mean Corpuscular Hemoglobin 30.2 pg (25.0-34.0); Mean Corpuscular Hgb Conc 33.7 g/dL (32.0-36.0); Mean Corpuscular Volume 89.6 fL (80.0-100.0); Mean Platelet Volume 9.2 fL (9.4-12.4); Monocytes # (auto) 0.56 K/uL (0.11-0.59); Monocytes % (auto) 8.3 %; Neutrophils # (auto) 4.85 K/uL (1.40-6.50); Neutrophils % (auto) 71.8 %; Platelet Count 482 K/uL (130-400); RDW Coefficient of Variation 13.9 % (11.5-14.5); RDW Standard Deviation 44.3 fL (36.4-46.3); Red Blood Count 3.28 M/uL (4.20-5.40); White Blood Count 6.76 K/ul (4.8-10.8)
[2023-01-07 07:05] LABS: BUN Creatinine Ratio 7.8 (10-20); C Reactive Protein 1.88 mg/dl (0-0.5); Calcium 7.9 mg/dl (8.6-10.3); Creatinine Clr Calc Pharmacy 64.4 ml/min; Est GFR (African American) 100.5 ml/min; Est GFR (Non-African American) 86.7 ml/min; Potassium 3.8 mmol/L (3.5-5.1)
[2023-01-07 07:20] LABS: Thyroid Stimulating Hormone 7.195 uIu/ml (0.300-4.500)
[2023-01-07 07:54] LABS: T4 Free Thyroxine 1.02 ng/dl (0.61-1.60)
[2023-01-07] MEDS: HEPARIN SOD 5,000 UNIT/0.5 ML VIAL SQ SCH ×3 (08:10→22:18)
[2023-01-07] MEDS: ACETAMINOPHEN 1,000 MG/100 ML VIAL IV PRN ×2 (09:41→20:16)
[2023-01-07] MEDS: FLUCONAZOLE 100 MG TAB PO SCH (10:04)
--- NOTE | 2023-01-07 10:06 | Gastrointestinal Consultation ---
Date of Consultation January 07, 2023 Assessment & Plan (1) Diarrhea: Obviously the first thing we need to check on her is stool for c.diff with her recent hospitalization and surgery for bowel obstruction. She says she was on antibiotics during that time. Stool check before discharge was negative for C. diff. Some of her diarrhea could just be postop changes but she was fairly dehydrated on admit which doesn't seem to fit with just postop issues. Will await stool for c. diff before making further recs. May have to feed her to get a stool specimen. The other issue there is that c. diff doesn't usually need food to generate diarrhea. Will follow. History of Present Illness Reason for Consultation: diarrhea Attending Physician: Oniel Figueroa MD History of Present Illness 77 year old [employer] who is recently status post small bowel resection for obstruction due to adhesion. Recent discharge from hospital readmitted with diarrhea and dehydration. She tells me when she eats she gets severe cramping and then diarrhea. If she doesn't eat she doesn't get diarrhea. Since admission she has not had a bowel movement to be checked for c. diff. She has chronic IBS issues with constipation and abdominal pain that has been unable to be managed. She has a history of ischemic colitis back in 2008. That is when she had her last colonoscopy and she hasn't had one since--she refuses. Allergies Allergy/AdvReac Type Severity Reaction Status Date / Time nickel Allergy Intermediate Rash Verified 01/06/23 14:54 timolol Allergy Unknown Unknown Verified 01/06/23 14:54 Beta-Blockers AdvReac Severe SEVERE Verified 01/06/23 14:54 (Beta-Adrenergic Bloc HYPOTENSION Opioids - Morphine Analogues AdvReac Intermediate Vomiting Verified 01/06/23 14:54 Home Medications Medication Instructions Recorded Confirmed Type levothyroxine 100 mcg tablet 100 mcg PO QAM 01/20/19 01/06/23 History (Synthroid) netarsudil 0.02 %-latanoprost 1 drp OPR HS 01/20/19 01/06/23 History 0.005 % eye drops (Rocklatan) tafluprost (PF) 0.0015 % eye drops 1 drp OPL HS 01/20/19 01/06/23 History in a dropperette (Zioptan (PF)) nitrofurantoin macrocrystal 100 mg 100 mg PO HS #90 caps 08/23/19 01/06/23 Rx capsule estradiol 0.01% (0.1 mg/gram) 1 g vaginal 2XWK 01/02/23 01/06/23 History vaginal cream estradiol 0.5 mg tablet 0.5 mg PO Q7D 01/02/23 01/06/23 History sertraline 25 mg tablet 25 mg PO HS 01/02/23 01/06/23 History acetaminophen 325 mg chewable 650 mg (2 x 325 mg) PO Q4H PRN 01/04/23 01/06/23 Rx tablet pain #30 tabs ondansetron 4 mg disintegrating 4 mg PO Q8H PRN nausea and 01/04/23 01/06/23 Rx tablet vomiting 3 days #12 tabs Ased Eye Drops 1 drp OPB HS 01/06/23 01/06/23 History Patient History Medical History Hypothyroidism (acquired) Piriformis syndrome Lumbar radiculopathy Poor vision Recurrent UTI Schatzki's ring History of ischemic colitis IBS (irritable bowel syndrome) Hypothyroidism History of Graves' disease GERD (gastroesophageal reflux disease) Glaucoma Thyroid disorder Surgical History History of bowel resection (12/27/22) Exploratory Laparotomy with Small Bowel Resection(Not Applicable) - Oliver Blanco, History of Achilles tendon repair Rt History of back surgery History of hysterectomy with unilateral oophorectomy History of esophagogastroduodenoscopy (EGD) History of colonoscopy History of thyroidectomy, subtotal Family History Other Nausea and vomiting after administration of anesthetic agent Social History Smoking Status: Never smoker Second Hand Exposure: No; Do You Dip or Chew Tobacco: No; Hx Alcohol Use: Yes Hx Substance Use: No Preferred Language: Upper Sorbian Communication Ability: Effective Communication Ability Comment: Glaucoma Visual Impairment: Severely Limited Analysis Specialist Required: No Beliefs That Will Affect Care: None Current Living Situation: Personal Care Facility Current Living Situation Comment: [facility] Other Information That Helps Us Care for You: No Feels Safe at Home: Yes Safety Concerns: Feels Safe At This Time Assistive Devices: Glasses and Hospital Bed Review of Systems Review of Systems: All systems reviewed & are unremarkable except as noted in HPI & below Physical Exam Constitutional: WD/WN, vitals as above Neck: trachea midline, no thyromegaly Respiratory: normal respiratory effort, lungs clear to auscultation Cardiovascular: RRR, no murmur, no edema Gastrointestinal (Abdomen): normal bowel sounds, soft, nontender, no hepatosplenomegaly Results & Data Vital Signs (Past 12 Hours) Vital Signs Temp Pulse Resp BP Pulse Ox O2 Del Method 01/07/23 07:38 Room Air 01/07/23 07:36 36.4 C L 62 16 134/68 98 Room Air 01/06/23 22:21 Room Air Laboratory Results 01/07/23 01/07/23 01/06/23 Range/Units 08:16 05:51 19:25 WBC 6.76 (4.8-10.8) K/ul RBC 3.28 L (4.20-5.40) M/uL Hgb 9.9 L (12.0-16.0) g/dl Hct 29.4 L (37.0-47.0) % MCV 89.6 (80.0-100.0) fL MCH 30.2 (25.0-34.0) pg MCHC 33.7 (32.0-36.0) g/dL RDW Std Deviation 44.3 (36.4-46.3) fL RDW Coeff of Ana Lilia 13.9 (11.5-14.5) % Plt Count 482 H (130-400) K/uL MPV 9.2 L (9.4-12.4) fL Immature Gran % (Auto) 0.1 % Neut % (Auto) 71.8 % Lymph % (Auto) 16.1 % [place] % (Auto) 8.3 % Eos % (Auto) 3.0 % Baso % (Auto) 0.7 % Neut # (Auto) 4.85 (1.40-6.50) K/uL Lymph # (Auto) 1.09 L (1.20-3.40) K/uL [place] # (Auto) 0.56 (0.11-0.59) K/uL Eos # (Auto) 0.20 (0.00-0.50) K/uL Baso # (Auto) 0.05 (0.00-0.20) K/uL Immature Gran # (Auto) 0.01 (0.01-0.20) K/uL Sodium 141 (136-145) mmol/L Potassium 3.8 (3.5-5.1) mmol/L Chloride 111 H (98-107) mmol/L Carbon Dioxide 22 (21-32) mmol/L Anion Gap 8 (3-11) BUN 5 L (6-23) mg/dl Creatinine 0.64 (0.6-1.2) mg/dl Est Cr Clr Drug Dosing 64.4 ml/min Est GFR ( Amer) 100.5 ml/min Est GFR (Non-Af Amer) 86.7 ml/min BUN/Creatinine Ratio 7.8 L (10-20) Glucose 75 (70-99(Fasting)) mg/dl Lactate (0.4-2.0) mmol/L Calcium 7.9 L (8.6-10.3) mg/dl Magnesium (1.7-2.4) mg/dl Total Bilirubin (0.2-1.0) mg/dl AST (13-39) U/L ALT (7-52) U/L Alkaline Phosphatase (34-104) U/L C-Reactive Protein 1.88 H (0-0.5) mg/dl Total Protein (6.0-8.3) gm/dl Albumin (3.4-5.0) gm/dl Globulin (2.5-4.0) gm/dl Albumin/Globulin Ratio (0.9-2) Lipase (11-82) U/L Vitamin B12 1033 H (180-914) pg/ml TSH 7.195 H (0.300-4.500) uIu/ml Free T4 1.02 (0.61-1.60) ng/dl Urine Color Yellow Urine Appearance Clear (Clear) Urine pH 6.5 (4.5-7.5) Ur Specific [place] > 1.045 H (1.000-1.030) Urine Protein Negative (Negative) Urine Glucose (UA) Negative (Negative) Urine Ketones 2+ H (Negative) Urine Blood Negative (Negative) Urine Nitrite Negative (Negative) Urine Bilirubin Negative (Negative) Urine Urobilinogen Negative (Negative) Ur Leukocyte Esterase Negative (Negative) SARS-CoV-2 (PCR) (Negative) 01/06/23 01/06/23 01/06/23 Range/Units 15:00 11:51 11:10 WBC 9.62 (4.8-10.8) K/ul RBC 3.70 L (4.20-5.40) M/uL Hgb 11.3 L (12.0-16.0) g/dl Hct 33.0 L (37.0-47.0) % MCV 89.2 (80.0-100.0) fL MCH 30.5 (25.0-34.0) pg MCHC 34.2 (32.0-36.0) g/dL RDW Std Deviation 46.2 (36.4-46.3) fL RDW Coeff of Ana Lilia 14.6 H (11.5-14.5) % Plt Count 469 H (130-400) K/uL MPV 9.2 L (9.4-12.4) fL Immature Gran % (Auto) 0.2 % Neut % (Auto) 79.4 % Lymph % (Auto) 11.2 % [place] % (Auto) 7.3 % Eos % (Auto) 1.2 % Baso % (Auto) 0.7 % Neut # (Auto) 7.63 H (1.40-6.50) K/uL Lymph # (Auto) 1.08 L (1.20-3.40) K/uL [place] # (Auto) 0.70 H (0.11-0.59) K/uL Eos # (Auto) 0.12 (0.00-0.50) K/uL Baso # (Auto) 0.07 (0.00-0.20) K/uL Immature Gran # (Auto) 0.02 (0.01-0.20) K/uL Sodium 138 (136-145) mmol/L Potassium 3.2 L (3.5-5.1) mmol/L Chloride 106 (98-107) mmol/L Carbon Dioxide 20 L (21-32) mmol/L Anion Gap 12 H (3-11) BUN 9 (6-23) mg/dl Creatinine 0.56 L (0.6-1.2) mg/dl Est Cr Clr Drug Dosing 73.7 ml/min Est GFR ( Amer) 105.0 ml/min Est GFR (Non-Af Amer) 90.6 ml/min BUN/Creatinine Ratio 16.1 (10-20) Glucose 100 H (70-99(Fasting)) mg/dl Lactate 1.2 (0.4-2.0) mmol/L Calcium 8.5 L (8.6-10.3) mg/dl Magnesium 1.8 (1.7-2.4) mg/dl Total Bilirubin 0.4 (0.2-1.0) mg/dl AST 28 (13-39) U/L ALT 56 H (7-52) U/L Alkaline Phosphatase 91 (34-104) U/L C-Reactive Protein 2.69 H (0-0.5) mg/dl Total Protein 6.3 (6.0-8.3) gm/dl Albumin 3.5 (3.4-5.0) gm/dl Globulin 2.8 (2.5-4.0) gm/dl Albumin/Globulin Ratio 1.3 (0.9-2) Lipase 64 (11-82) U/L Vitamin B12 (180-914) pg/ml TSH (0.300-4.500) uIu/ml Free T4 (0.61-1.60) ng/dl Urine Color Urine Appearance (Clear) Urine pH (4.5-7.5) Ur Specific [place] (1.000-1.030) Urine Protein (Negative) Urine Glucose (UA) (Negative) Urine Ketones (Negative) Urine Blood (Negative) Urine Nitrite (Negative) Urine Bilirubin (Negative) Urine Urobilinogen (Negative) Ur Leukocyte Esterase (Negative) SARS-CoV-2 (PCR) NEGATIVE (Negative) Diagnostic Findings Abdomen/Pelvis CT 01/06/23 12:25 CT abd pelvis IV con only CLINICAL HISTORY: SBO w/resection ongoing diarrhea pain skin erythem TECHNIQUE: Helical axial images of the abdomen and pelvis were obtained and displayed. Automated dose lowering techniques and/or adjustment according to patient size were utilized for this exam. This exam was performed with intravenous contrast. CT DOSE: 631.82 mGy.cm COMPARISON: Comparison is made to CT abdomen pelvis 12/26/2022 FINDINGS: Lower chest: Bibasilar atelectasis versus scarring is seen. Small right pleural effusion is seen. Liver: Focal fatty changes are noted about the falciform ligament. Gallbladder and biliary tree: No calcified gallstones. Normal caliber wall. No intra- or extrahepatic biliary ductal dilation. Pancreas: Unremarkable, no focal lesions. Spleen: Unremarkable. Adrenals: Unremarkable. Kidneys and ureters: Unremarkable. Bladder: Limited evaluation due to underdistention. Reproductive organs: Unremarkable. Bowel: Diverticulosis is seen without diverticulitis. The appendix is normal. Postsurgical changes are seen in the small bowel. Lymph nodes Retroperitoneal: Unremarkable. Pelvic: Unremarkable. Mesenteric: Unremarkable. Peritoneum: Small amount of free fluid is seen in the pelvis measuring simple fluid density. Vessels: Atherosclerotic calcifications are seen. Abdominal wall: Incisional changes seen with associated edema and a small amount of subcutaneous emphysema and herniated fat. Bones: Minimal degenerative changes are seen. IMPRESSION: 1. Post surgical changes are seen. No evidence of bowel ischemia is seen. No drainable fluid collections. 2. Small pelvic free fluid is likely reactive. 3. Diverticulosis without diverticulitis. 4. Additional findings as above. ACT 112: Negative or not required by law. Electronically signed by: Kvng Castañeda M.D. 01/06/2023 3:01 PM (1) Diarrhea Diarrhea type: unspecified type Qualified Code(s): R19.7 - Diarrhea, unspecified
--- NOTE | 2023-01-07 11:02 | Hospitalist Progress Note ---
Date of Service January 07, 2023 Assessment & Plan (1) Diarrhea: Plan: Diarrhea, abdominal cramping/pain Since bowel resection, is not worsening but also not improving since -Differentials are broad, infectious, short bowel syndrome, osmotic No evidence of recurrent SBO, bowel ischemia, or intra-abdominal infection on the Appendix is normal-appearing. No biliary tree abnormalities are noted C. difficile and stool bio fire are pending, patient yet to produce stool Consult GI (2) Physical deconditioning: Plan: Physical deconditioning, poor p.o. in the Patient has felt progressively weak and with poor nutrition since discharge. Requests PT/OT and rehab. PT/OT consulted, CM consulted Multiple IV fluids as noted Nutrition consulted (3) Abdominal wall cellulitis: Plan: Surgical site with small approximately 8 x 5 cm area of demarcated slight erythema without purulence or fluctuance. Patient reports this is. No signs of deep infection or abscess on CT Will treat with cefazolin every 8 hours. If worsening or any purulence is appreciated --> Vancomycin. No history of MRSA No leukocytosis, patient is not septic appearing CRP pending (4) History of bowel resection: Plan: S/p bowel resection 02/26/22 - CT-A/P:1. Post surgical changes are seen. No evidence of bowel ischemia is seen. No drainable fluid collections. 2. Small pelvic free fluid is likely reactive. 3. Diverticulosis without diverticulitis. 4. Additional findings as above. -Patient is with intermittent diarrhea, no evidence of recurrent obstruction - No leukocytosis.. CRP trended Hypokalemia, repleted Lactate normal (5) Hypothyroidism (acquired): Plan: Hypothyroidism TSH pending Continue Synthroid (6) GERD (gastroesophageal reflux disease): Plan: Pepcid MA (7) Vaginal candidiasis: Plan: Continue Diflucan Plan DVT prophylaxis: Heparin Diet: Patient feels that she would like to try to tolerate a low residue diet rather than clears for bowel rest. 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 Physical Exam Physical Exam: The patient is awake, alert and oriented 3, well developed and well nourished, normocephalic and atraumatic, lying in bed and in no acute distress. HEENT--PERRL, EOMI, mucous membranes and oropharynx mildly dry Neck--supple. No JVD. No bruits. Thyroid normal, trachea midline, no adenopathy. Heart--normal S1 and S2. No murmurs, rubs or gallops. Lungs--clear bilaterally, no respiratory distress, no accessory muscle use. Abdomen--normal bowel sounds and soft. Mild epigastric and left sided abdominal pain Extremities--no cyanosis or clubbing. No edema. Dermatologic--normal skin turgor, normal color, no abnormal lymph nodes, no rash. Neurologic--cranial nerves II through XII grossly intact. Rheumatologic--normal range of motion. Psychiatric--normal affect. Results & Data Results & Data Vital Signs (Past 12 Hours) Vital Signs Temp Pulse Resp BP Pulse Ox O2 Del Method 01/07/23 07:38 Room Air 01/07/23 07:36 97.5 F L 62 16 134/68 98 Room Air PG Care Time/CCT Total # of Minutes Spent Total Time Spent with Patient: Total time spent is greater than 50% in coordination of care (as documented) at patient's floor/unit and/or counseling patient: Coding Level of Care Code 40083 SUB INP/OBS CARE 2/35MIN Diagnoses Diarrhea R19.7 Diarrhea type: unspecified type Physical deconditioning R53.81 Abdominal wall cellulitis L03.311 History of bowel resection Z90.49 Hypothyroidism (acquired) E03.9 GERD (gastroesophageal reflux disease) K21.9 Vaginal candidiasis B37.3 Time Spent (min) 35 (1) Diarrhea Diarrhea type: unspecified type Qualified Code(s): R19.7 - Diarrhea, unspecified
[2023-01-07] MEDS: TAFLUPROST/PF 1 EA DROPS OPL SCH (20:15)
[2023-01-07] MEDS: NETARSUDIL MESYLAT/LATANOPROST 37 DROPS/2.5 ML BTL OPR SCH (20:15)
[2023-01-07] MEDS: SERTRALINE HCL 50 MG TABLET PO SCH (20:22)
[2023-01-07] MEDS: nitrofurantoin macrocrystaL 50 MG CAP PO SCH (20:22)
[2023-01-07] MEDS: MELATONIN 3 MG TAB PO PRN (20:45)
[2023-01-08] MEDS: ONDANSETRON INJ 2 MG/ML 2 ML VIAL IV PRN ×2 (01:10→07:48)
[2023-01-08] MEDS: MoRPHine SULFATE 2 MG/ML CARP IV PRN (01:12)
[2023-01-08] MEDS: LEVOTHYROXINE SODIUM 100 MCG TABLET PO SCH (05:54)
[2023-01-08] MEDS: HEPARIN SOD 5,000 UNIT/0.5 ML VIAL SQ SCH (05:55)
[2023-01-08] MEDS: ceFAZolin 2000MG 2,000 MG/15 ML SYR IV SCH ×3 (05:56→22:14)
[2023-01-08] MEDS: ACETAMINOPHEN 1,000 MG/100 ML VIAL IV PRN ×2 (07:52→17:54)
[2023-01-08] MEDS: FLUCONAZOLE 100 MG TAB PO SCH (08:07)
[2023-01-08 08:44] LABS: Basophils # (auto) 0.04 K/uL (0.00-0.20); Basophils % (auto) 0.6 %; Eosinophils # (auto) 0.15 K/uL (0.00-0.50); Eosinophils % (auto) 2.2 %; Hematocrit (blood only) 34.8 % (37.0-47.0); Hemoglobin 11.6 g/dl (12.0-16.0); Immature Granulocytes # (auto) 0.02 K/uL (0.01-0.20); Immature Granulocytes % (auto) 0.3 %; Lymphocytes # (auto) 1.34 K/uL (1.20-3.40); Mean Corpuscular Hgb Conc 33.3 g/dL (32.0-36.0); Mean Corpuscular Volume 89.9 fL (80.0-100.0); Monocytes # (auto) 0.44 K/uL (0.11-0.59); Monocytes % (auto) 6.6 %; Neutrophils # (auto) 4.72 K/uL (1.40-6.50); Neutrophils % (auto) 70.3 %; Platelet Count 627 K/uL (130-400); RDW Coefficient of Variation 14.9 % (11.5-14.5); RDW Standard Deviation 47.6 fL (36.4-46.3); Red Blood Count 3.87 M/uL (4.20-5.40); White Blood Count 6.71 K/ul (4.8-10.8)
[2023-01-08 08:59] LABS: BUN Creatinine Ratio 9.2 (10-20); Calcium 8.7 mg/dl (8.6-10.3); Creatinine Clr Calc Pharmacy 63.4 ml/min; Est GFR (Non-African American) 86.2 ml/min; Potassium 3.5 mmol/L (3.5-5.1)
--- NOTE | 2023-01-08 10:15 | Gastroenterology Progress Note ---
Date of Service January 08, 2023 Assessment & Plan (1) Diarrhea: Plan: She seems to be doing much better. Perhaps her gut has recovered from her surgery better now. Would continue on low residue diet Admission and Anticipated Discharge Date Admission Date: January 06, 2023 Subjective Doing much better today. Able to eat without running to bathroom. Passing gas without diarrhea. Physical Exam Physical Exam: She looks great Results & Data Vital Signs (Past 12 Hours) Vital Signs Temp Pulse Resp BP Pulse Ox O2 Del Method 01/08/23 07:55 Room Air 01/08/23 07:51 36.6 C 60 16 124/70 96 Room Air (1) Diarrhea Diarrhea type: unspecified type Qualified Code(s): R19.7 - Diarrhea, unspecified
--- NOTE | 2023-01-08 12:58 | Hospitalist Progress Note ---
Date of Service January 08, 2023 Assessment & Plan (1) Diarrhea: Plan: Diarrhea, abdominal cramping/pain, now resolved Appreciate GI recs (2) Physical deconditioning: Plan: Physical deconditioning, poor p.o. in the Patient has felt progressively weak and with poor nutrition since discharge. Requests PT/OT and rehab. PT/OT consulted, CM consulted Nutrition consulted -Patient wants rehab (3) Abdominal wall cellulitis: Plan: Surgical site with small approximately 8 x 5 cm area of demarcated slight erythema without purulence or fluctuance. Patient reports this is. No signs of deep infection or abscess on CT Will treat with cefazolin every 8 hours. If worsening or any purulence is appreciated --> Vancomycin. No history of MRSA No leukocytosis, patient is not septic appearing She is scheduled to have her tita removed on Tuesday, but does not want to be discharged since she wants rehab -Will consult her surgeon for tita removal (4) History of bowel resection: Plan: S/p bowel resection 02/26/22 - CT-A/P:1. Post surgical changes are seen. No evidence of bowel ischemia is seen. No drainable fluid collections. 2. Small pelvic free fluid is likely reactive. 3. Diverticulosis without diverticulitis. 4. Additional findings as above. -Patient is with intermittent diarrhea, no evidence of recurrent obstruction - No leukocytosis.. CRP trended Hypokalemia, repleted Lactate normal (5) Hypothyroidism (acquired): Plan: Hypothyroidism TSH pending Continue Synthroid (6) GERD (gastroesophageal reflux disease): Plan: Pepcid [place] (7) Vaginal candidiasis: Plan: Continue Diflucan, stop date today Plan DVT prophylaxis: refusing heparin Diet: Patient feels that she would like to try to tolerate a low residue diet rather than clears for bowel rest. No intra-abdominal infection or SBO, will trial low residue diet as tolerated Disposition: Medical/surgical CODE STATUS: DNR/DN Admission and Anticipated Discharge Date Admission Date: January 06, 2023 Subjective patient seen and examined,diarrhea has subsided, but worried that she needs her tita removed on Tuesday, but does not want to be discharged since she wants rehab Review of Systems Review of Systems: All systems reviewed are negative, apart from the ones contained in the history. Physical Exam Physical Exam: The patient is awake, alert and oriented 3, well developed and well nourished, normocephalic and atraumatic, lying in bed and in no acute distress. HEENT--PERRL, EOMI, mucous membranes and oropharynx mildly dry Neck--supple. No JVD. No bruits. Thyroid normal, trachea midline, no adenopathy. Heart--normal S1 and S2. No murmurs, rubs or gallops. Lungs--clear bilaterally, no respiratory distress, no accessory muscle use. Abdomen--normal bowel sounds and soft. Mild epigastric and left sided abdominal pain Extremities--no cyanosis or clubbing. No edema. Dermatologic--normal skin turgor, normal color, no abnormal lymph nodes, no rash. Neurologic--cranial nerves II through XII grossly intact. Rheumatologic--normal range of motion. Psychiatric--normal affect. Results & Data Results & Data Vital Signs (Past 12 Hours) Vital Signs Temp Pulse Resp BP Pulse Ox O2 Del Method 01/08/23 07:55 Room Air 01/08/23 07:51 97.9 F 60 16 124/70 96 Room Air PG Care Time/CCT Total # of Minutes Spent Total Time Spent with Patient: Total time spent is greater than 50% in coordination of care (as documented) at patient's floor/unit and/or counseling patient: Coding Level of Care Code 52470 SUB INP/OBS CARE 2/35MIN Diagnoses Diarrhea R19.7 Diarrhea type: unspecified type Physical deconditioning R53.81 Abdominal wall cellulitis L03.311 History of bowel resection Z90.49 Hypothyroidism (acquired) E03.9 GERD (gastroesophageal reflux disease) K21.9 Vaginal candidiasis B37.3 Time Spent (min) 35 (1) Diarrhea Diarrhea type: unspecified type Qualified Code(s): R19.7 - Diarrhea, unspecified
[2023-01-08] MEDS: TAFLUPROST/PF 1 EA DROPS OPL SCH (20:15)
[2023-01-08] MEDS: SERTRALINE HCL 50 MG TABLET PO SCH (20:15)
[2023-01-08] MEDS: NETARSUDIL MESYLAT/LATANOPROST 37 DROPS/2.5 ML BTL OPR SCH (20:15)
[2023-01-08] MEDS: MELATONIN 3 MG TAB PO PRN ×2 (20:19→20:21)
[2023-01-09] MEDS ORDERED: FAMOTIDINE 20 MG TAB PO ONE (00:29)
[2023-01-09] MEDS: ONDANSETRON INJ 2 MG/ML 2 ML VIAL IV PRN (02:32)
--- NOTE | 2023-01-09 05:40 | Surgery Consultation ---
Date of Consultation January 09, 2023 Assessment & Plan (1) S/P exploratory laparotomy: Patient has been admitted to the hospital secondary to failure to thrive along with diarrhea The patient has been seen by gastroenterology and her diarrhea has improved She is currently being treated with antibiotics for abdominal wall cellulitis (Ancef) Due to her failure to thrive and generalized weakness patient has requested rehab placement which is currently in process As patient was scheduled to see Dr. Oliver Blanco on 01/10/2023 we will notify him of patient's admission. After his evaluation and determination was made if patient tita can be removed. Supervising Physician Co-Signing Physician Notes Patient discussed with Saúl Breaux, labs and imaging reviewed, agree with above. Status post lysis of adhesion and bowel resection with recent discharge readmitted for diarrhea with some failure to thrive and desire for placement of more involved rehab facility. Surgery was consulted for suture removal. She was scheduled to see Dr. Blanco in the clinic this week, we will let him know and the tita will likely be removed sometime this week. No significant surgical issue at this time. History of Present Illness Reason for Consultation: Postoperative evaluation Attending Physician: Oniel Figueroa MD History of Present Illness This is a 77-year-old female known to [facility] general surgery. The patient was previously admitted to [facility] from 12/27/2022 through 01/04/2023. During this admission patient was noted to have small bowel obstruction requiring operative intervention. She underwent exploratory laparotomy with small bowel resection by Dr. Oliver Blanco on 12/27/2022. Patient Paige presented to the emergency department approximately 2 days following her discharge as the patient felt that she was getting weaker and was having ongoing difficulty with abdominal pain as well as cramping. In addition, the patient reports that she was having multiple episodes of diarrhea. She denies any fevers, shakes, or chills. She denies any issues with her surgical incision. Patient felt that she required readmission to the hospital for rehab placement. Since admission to the hospital the patient has had labs and imaging which were independently reviewed by myself. CT scan of the abdomen pelvis on 01/06/2023 showed postsurgical changes with no evidence of bowel ischemia or drainable fluid collections. Labs most recently included CBC from yesterday white blood cell count was normal. (She did not exhibit any leukocytosis since admission) hemoglobin and hematocrit are 11.6 and 34.8. Her platelet count is 627,000. Chemistry profile showed sodium and potassium along with the BUN and creatinine are normal. The patient notes that she was to see Dr. Oliver Blanco on 01/10/2023 due to her hospitalization surgery was notified of her admission and consultation was requested. At the time of my interview the patient was resting comfortably in bed and she was in no distress. Allergies Allergy/AdvReac Type Severity Reaction Status Date / Time nickel Allergy Intermediate Rash Verified 01/06/23 14:54 timolol Allergy Unknown Unknown Verified 01/06/23 14:54 Beta-Blockers AdvReac Severe SEVERE Verified 01/06/23 14:54 (Beta-Adrenergic Bloc HYPOTENSION Opioids - Morphine Analogues AdvReac Intermediate Vomiting Verified 01/06/23 14:54 Home Medications Medication Instructions Recorded Confirmed Type levothyroxine 100 mcg tablet 100 mcg PO QAM 01/20/19 01/06/23 History (Synthroid) netarsudil 0.02 %-latanoprost 1 drp OPR HS 01/20/19 01/06/23 History 0.005 % eye drops (Rocklatan) tafluprost (PF) 0.0015 % eye drops 1 drp OPL HS 01/20/19 01/06/23 History in a dropperette (Zioptan (PF)) nitrofurantoin macrocrystal 100 mg 100 mg PO HS #90 caps 08/23/19 01/06/23 Rx capsule estradiol 0.01% (0.1 mg/gram) 1 g vaginal 2XWK 01/02/23 01/06/23 History vaginal cream estradiol 0.5 mg tablet 0.5 mg PO Q7D 01/02/23 01/06/23 History sertraline 25 mg tablet 25 mg PO HS 01/02/23 01/06/23 History acetaminophen 325 mg chewable 650 mg (2 x 325 mg) PO Q4H PRN 01/04/23 01/06/23 Rx tablet pain #30 tabs ondansetron 4 mg disintegrating 4 mg PO Q8H PRN nausea and 01/04/23 01/06/23 Rx tablet vomiting 3 days #12 tabs Ased Eye Drops 1 drp OPB HS 01/06/23 01/06/23 History Patient History Medical History Hypothyroidism (acquired) Piriformis syndrome Lumbar radiculopathy Poor vision Recurrent UTI Schatzki's ring History of ischemic colitis IBS (irritable bowel syndrome) Hypothyroidism History of Graves' disease GERD (gastroesophageal reflux disease) Glaucoma Thyroid disorder Surgical History History of bowel resection (12/27/22) Exploratory Laparotomy with Small Bowel Resection(Not Applicable) - Oliver Blanco DO History of Achilles tendon repair Rt History of back surgery History of hysterectomy with unilateral oophorectomy History of esophagogastroduodenoscopy (EGD) History of colonoscopy History of thyroidectomy, subtotal Family History Other Nausea and vomiting after administration of anesthetic agent Social History Smoking Status: Never smoker Second Hand Exposure: No; Do You Dip or Chew Tobacco: No; Hx Alcohol Use: Yes Hx Substance Use: No Preferred Language: Romansh Communication Ability: Effective Communication Ability Comment: Glaucoma Visual Impairment: Severely Limited Teaseler Required: No Beliefs That Will Affect Care: None Current Living Situation: Personal Care Facility Current Living Situation Comment: [facility] Other Information That Helps Us Care for You: No Feels Safe at Home: Yes Safety Concerns: Feels Safe At This Time Assistive Devices: Glasses and Walker Review of Systems Constitutional: + fatigue; no fever and no chills Eyes: + corrective lenses Ear, Nose, Mouth, Throat: no hearing loss Respiratory: no cough and no dyspnea Cardiovascular: no chest pain Gastrointestinal: + diarrhea/loose stools; no abdominal pa in, no nausea and no vomiting Genitourinary: no dysuria Musculoskeletal: no back pain Integumentary: no rash Neurologic: + generalized weakness Physical Exam Constitutional: WD/WN, vitals as above Eyes: Wears glasses ENMT: Ears: no hearing impairment Neck: trachea midline Respiratory: normal respiratory effort; no labored breathing Cardiovascular: Rate/Rhythm: regular rate and regular rhythm Gastrointestinal (Abdomen): Abdomen is soft and nondistended. There is minimal pain with palpation. Patient's surgical incision is clean, dry, and intact with tita. There is a small amount of erythema along the lower pole of the incision. There is no drainage. Musculoskeletal: No calf tenderness Neurologic: moves all extremities Results & Data Vital Signs (Past 12 Hours) Vital Signs Temp Pulse Resp BP Pulse Ox O2 Del Method 01/08/23 20:34 36.7 C 59 L 17 125/66 95 Room Air PG Care Time/CCT Total # of Minutes Spent Total Time Spent with Patient: Total time spent is greater than 50% in coordination of care (as documented) at patient's floor/unit and/or counseling patient: Coding Level of Care Code None Diagnoses S/P exploratory laparotomy Z98.890
[2023-01-09] MEDS: LEVOTHYROXINE SODIUM 100 MCG TABLET PO SCH (05:59)
[2023-01-09] MEDS: ceFAZolin 2000MG 2,000 MG/15 ML SYR IV SCH ×2 (06:00→07:56)
[2023-01-09] MEDS: ACETAMINOPHEN 1,000 MG/100 ML VIAL IV PRN (06:23)
[2023-01-09 09:02] LABS: Basophils # (auto) 0.06 K/uL (0.00-0.20); Basophils % (auto) 0.9 %; Eosinophils # (auto) 0.14 K/uL (0.00-0.50); Eosinophils % (auto) 2.1 %; Hematocrit (blood only) 36.3 % (37.0-47.0); Immature Granulocytes # (auto) 0.02 K/uL (0.01-0.20); Immature Granulocytes % (auto) 0.3 %; Lymphocytes # (auto) 1.37 K/uL (1.20-3.40); Lymphocytes % (auto) 20.7 %; Mean Corpuscular Hemoglobin 30.2 pg (25.0-34.0); Mean Corpuscular Hgb Conc 33.1 g/dL (32.0-36.0); Mean Corpuscular Volume 91.4 fL (80.0-100.0); Monocytes # (auto) 0.45 K/uL (0.11-0.59); Monocytes % (auto) 6.8 %; Neutrophils # (auto) 4.57 K/uL (1.40-6.50); Neutrophils % (auto) 69.2 %; Platelet Count 670 K/uL (130-400); RDW Coefficient of Variation 14.8 % (11.5-14.5); Red Blood Count 3.97 M/uL (4.20-5.40); White Blood Count 6.61 K/ul (4.8-10.8)
[2023-01-09 09:16] LABS: BUN Creatinine Ratio 9.6 (10-20); Calcium 9.3 mg/dl (8.6-10.3); Creatinine Clr Calc Pharmacy 56.5 ml/min; Est GFR (African American) 92.7 ml/min; Potassium 3.5 mmol/L (3.5-5.1)
[2023-01-09] MEDS ORDERED: MELATONIN 3 MG TAB PO PRN (09:28)
--- NOTE | 2023-01-09 09:41 | Gastroenterology Progress Note ---
Date of Service January 09, 2023 Assessment & Plan (1) Diarrhea: Plan: Diarrhea seems to have resolved. Will sign off. Please reconsult as needed Admission and Anticipated Discharge Date Admission Date: January 08, 2023 Subjective Still doing well. No diarrhea. Had reflux last night managed with pepcid Results & Data Vital Signs (Past 12 Hours) Vital Signs Temp Pulse Resp BP Pulse Ox O2 Del Method 01/09/23 07:40 36.7 C 59 L 18 131/75 95 Room Air (1) Diarrhea Diarrhea type: unspecified type Qualified Code(s): R19.7 - Diarrhea, unspecified
--- NOTE | 2023-01-09 11:28 | Hospitalist Progress Note ---
Date of Service January 09, 2023 Assessment & Plan (1) Diarrhea: Plan: Diarrhea, abdominal cramping/pain, now resolved Appreciate GI recs (2) Physical deconditioning: Plan: Physical deconditioning, poor p.o. in the Patient has felt progressively weak and with poor nutrition since discharge. Requests PT/OT and rehab. PT/OT consulted, CM consulted Nutrition consulted -Patient wants rehab, hopefully on Tuesday (3) Abdominal wall cellulitis: Plan: Surgical site with small approximately 8 x 5 cm area of demarcated slight erythema without purulence or fluctuance. Patient reports this is. No signs of deep infection or abscess on CT Initially on Cefazolin but patient requested her antibiotics changed to oral No leukocytosis, patient is not septic appearing She is scheduled to have her tita removed on Tuesday, but does not want to be discharged since she wants rehab -Will consult her surgeon for tita removal (4) History of bowel resection: Plan: S/p bowel resection 02/26/22 - CT-A/P:1. Post surgical changes are seen. No evidence of bowel ischemia is seen. No drainable fluid collections. 2. Small pelvic free fluid is likely reactive. 3. Diverticulosis without diverticulitis. 4. Additional findings as above. -Patient is with intermittent diarrhea, no evidence of recurrent obstruction - No leukocytosis.. CRP trended Hypokalemia, repleted Lactate normal (5) Hypothyroidism (acquired): Plan: Hypothyroidism TSH pending Continue Synthroid (6) GERD (gastroesophageal reflux disease): Plan: Pepcid [place] (7) Vaginal candidiasis: Plan: Continue Diflucan, stop date today (8) Dysphagia: Plan: Due to Schatzki ring Gets esophageal dilation occasionally Plan Plan is for Rehab, hopefully on Tuesday DVT prophylaxis: refusing heparin Diet: Patient feels that she would like to try to tolerate a low residue diet rather than clears for bowel rest. No intra-abdominal infection or SBO, will trial low residue diet as tolerated Disposition: Medical/surgical CODE STATUS: DNR/DN Admission and Anticipated Discharge Date Admission Date: January 08, 2023 Subjective patient seen and examined, daughter by the bedside, wants her Ancepf changed to something oral, also wants pepcid changed to liquid Review of Systems Review of Systems: All systems reviewed are negative, apart from the ones contained in the history. Physical Exam Physical Exam: The patient is awake, alert and oriented 3, well developed and well nourished, normocephalic and atraumatic, lying in bed and in no acute distress. HEENT--PERRL, EOMI, mucous membranes and oropharynx mildly dry Neck--supple. No JVD. No bruits. Thyroid normal, trachea midline, no adenopathy. Heart--normal S1 and S2. No murmurs, rubs or gallops. Lungs--clear bilaterally, no respiratory distress, no accessory muscle use. Abdomen--normal bowel sounds and soft. Mild epigastric and left sided abdominal pain Extremities--no cyanosis or clubbing. No edema. Dermatologic--normal skin turgor, normal color, no abnormal lymph nodes, no rash. Neurologic--cranial nerves II through XII grossly intact. Rheumatologic--normal range of motion. Psychiatric--normal affect. Results & Data Results & Data Vital Signs (Past 12 Hours) Vital Signs Temp Pulse Resp BP Pulse Ox O2 Del Method 01/09/23 07:40 98.1 F 59 L 18 131/75 95 Room Air PG Care Time/CCT Total # of Minutes Spent Total Time Spent with Patient: Total time spent is greater than 50% in coordination of care (as documented) at patient's floor/unit and/or counseling patient: Coding Level of Care Code 92320 SUB INP/OBS CARE 2/35MIN Diagnoses Diarrhea R19.7 Diarrhea type: unspecified type Physical deconditioning R53.81 Abdominal wall cellulitis L03.311 History of bowel resection Z90.49 Hypothyroidism (acquired) E03.9 GERD (gastroesophageal reflux disease) K21.9 Vaginal candidiasis B37.3 Dysphagia R13.10 Time Spent (min) 35 (1) Diarrhea Diarrhea type: unspecified type Qualified Code(s): R19.7 - Diarrhea, unspecified
[2023-01-09] MEDS: TAFLUPROST/PF 1 EA DROPS OPL SCH (20:18)
[2023-01-09] MEDS: NETARSUDIL MESYLAT/LATANOPROST 37 DROPS/2.5 ML BTL OPR SCH (20:18)
[2023-01-09] MEDS ORDERED: ACETAMINOPHEN 1,000 MG/100 ML VIAL IV PRN (20:28)
[2023-01-09] MEDS: SERTRALINE HCL 50 MG TABLET PO SCH (21:00)
[2023-01-10] MEDS: LEVOTHYROXINE SODIUM 100 MCG TABLET PO SCH (05:58)
[2023-01-10 07:27] LABS: Hematocrit (blood only) 31.8 % (37.0-47.0); Hemoglobin 10.4 g/dl (12.0-16.0); Mean Corpuscular Hgb Conc 32.7 g/dL (32.0-36.0); Mean Corpuscular Volume 91.6 fL (80.0-100.0); Platelet Count 584 K/uL (130-400); RDW Standard Deviation 49.2 fL (36.4-46.3); Red Blood Count 3.47 M/uL (4.20-5.40); White Blood Count 5.58 K/ul (4.8-10.8)
[2023-01-10 07:47] LABS: Albumin Level 3.2 gm/dl (3.4-5.0); Bilirubin,Total 0.3 mg/dl (0.2-1.0); Total Protein 5.6 gm/dl (6.0-8.3)
[2023-01-10] MEDS: FAMOTIDINE SUSP 20 MG/2.5 ML UDP PO SCH (08:23)
[2023-01-10] MEDS ORDERED: ACETAMINOPHEN 325 MG TAB PO PRN (10:17)
--- NOTE | 2023-01-10 10:22 | Surgery Progress Note ---
Date of Service January 10, 2023 Assessment & Plan (1) Infected incision: Plan: Patient resting in bed Reports pain is controlled with IV Tylenol Has soreness at incisional area Has some mild nausea, no vomiting and reports increased appetite Passing flatus Posterior staple line with cellulitis, no drainage noted, receded from admission. Continue PO keflex , Will remove tita today VSS, WBC WNL Continue with stool studies when has BM Patient may shower Admission and Anticipated Discharge Date Admission Date: January 08, 2023 Supervising Physician Co-Signing Physician Notes I personally saw and evaluated the patient with Anisha MATOS and agree with the assessment and plan. 77 yo female 2 weeks s/p ex lap, KARISSA, SBR CT images and results were personally viewed and interpreted by myself, no signs of SBO or fluid collection We will remove her tita today No lifting more than 20 lbs for the next 4 weeks She can have a low fiber diet Surgery will sign off at this time, please call with any questions or concerns Subjective Patient resting in bed Reports pain is controlled with IV Tylenol Has soreness at incisional area Has some mild nausea, no vomiting and reports increased appetite Passing flatus Review of Systems Constitutional: no fever and no chills Respiratory: no dyspnea Cardiovascular: no chest pain Gastrointestinal: + abdominal pain (soreness at incisional area ) and + nausea (mild); no vomiting Genitourinary: no problem reported Musculoskeletal: + muscle weakness Physical Exam Physical Exam: alert oriented Constitutional: cooperative and comfortable; no acute distress Respiratory: normal respiratory effort and able to speak in complete sentences; no respiratory distress Cardiovascular: Rate/Rhythm: regular rate Gastrointestinal (Abdomen): Inspection/Auscultation: + abdominal surgical incision (tita, posterior cellulitis ) Percussion/Palpation: + abdomen tender (TTP near tita ) and abdomen soft; no guarding Results & Data Vital Signs (Past 12 Hours) Vital Signs Temp Pulse Resp BP Pulse Ox O2 Del Method 01/10/23 07:39 97.7 F 62 18 144/71 H 97 Room Air PG Care Time/CCT Total # of Minutes Spent Total Time Spent with Patient: Total time spent is greater than 50% in coordination of care (as documented) at patient's floor/unit and/or counseling patient: Coding Level of Care Code 06329 Post Operative Follow-Up Diagnoses Infected incision T81.49XA
[2023-01-10] MEDS ORDERED: ACETAMINOPHEN 1,000 MG/100 ML VIAL IV PRN (12:28)
--- NOTE | 2023-01-10 18:39 | Hospitalist Progress Note ---
Date of Service January 10, 2023 Assessment & Plan (1) Diarrhea: Plan: Resolved. Gastroenterology consultation and recommendations appreciated (2) Physical deconditioning: Plan: Continue OT and PT. (3) Abdominal wall cellulitis: Plan: Currently on oral Keflex. Minimal findings. Surgery entry noted. Much improved. No signs of deep infection or abscess on CT (4) History of bowel resection: Plan: S/p bowel resection 02/26/22. Diarrhea present on admission appears to be noninfectious and has resolved. CT-A/P:1. Post surgical changes are seen. No evidence of bowel ischemia is seen. No drainable fluid collections. 2. Small pelvic free fluid is likely reactive. 3. Diverticulosis without diverticulitis. 4. Additional findings as above. (5) Hypothyroidism (acquired): Plan: Stable. Continue Synthroid (6) GERD (gastroesophageal reflux disease): Plan: Stable. Continue Pepcid (7) Vaginal candidiasis: Plan: Resolved. Treated with Diflucan (8) Dysphagia: Plan: Due to Schatzki ring. Gets esophageal dilation occasionally. Continue PPI therapy Plan Hopeful discharge to [facility] tomorrow, January 11 Admission and Anticipated Discharge Date Admission Date: January 08, 2023 Subjective Alert and appears to be oriented. She is adamant about needing acetaminophen via intravenous route for her chronic pain. She seems to be unwilling to try oral Tylenol. I informed her that she cannot go anywhere with intravenous medications. Ativan ordered at bedtime to help with sleep. Surgery entry noted. Abdominal tita were removed today. She is on oral Keflex for the minimal findings of abdominal wall cellulitis which occurred postoperatively. Mild hypokalemia has been corrected. Review of Systems 2 Review of Systems: Constitutional-no fever or chills ENT-no blurred vision, no double vision, no epistaxis, no sore throat Respiratory-no cough, no wheezing, no shortness of breath Cardiac-no palpitations, no chest pain, no syncope GI-no nausea, vomiting, diarrhea, melena, hematochezia -no urinary retention, no urinary incontinence, no dysuria, no hematuria Musculoskeletal-she states she has pain everywhere but cannot be more specific. No overt joint swelling or muscle tenderness Skin-no bruising, no rashes, no pruritus Neuro-no isolated weakness, no paresthesia Psych-no depression, no anxiety Physical Exam 2 Physical Exam: General-alert. No acute distress. Orientation is difficult to assess. HEENT-head atraumatic and normocephalic, pupils equal and reactive to light, extraocular muscles intact Neck-no lymphadenopathy or thyromegaly, trachea midline Chest-clear to auscultation percussion. No rales wheezing or rhonchi Cardiac-regular rate and rhythm, normal S1 and S2, no murmurs Abdomen-normal bowel sounds, no hepatosplenomegaly. Midline abdominal incision is healing well with minimal franck-incisional cellulitis. [place] have been removed Extremities-no cyanosis, clubbing, or edema. No joint edema or erythema Neuro-cranial nerves II through XII intact, motor and sensory function within normal limits, strength symmetrical , no focal deficits Psych- dramatic affect Results & Data Results & Data Vital Signs (Past 12 Hours) Vital Signs Temp Pulse Resp BP Pulse Ox O2 Del Method 01/10/23 15:34 36.4 C L 98 H 18 130/69 98 Room Air 01/10/23 07:39 36.5 C 62 18 144/71 H 97 Room Air Laboratory Results 01/10/23 06:35 01/09/23 08:47 PG Care Time/CCT Total # of Minutes Spent Total Time Spent with Patient: Total time spent is greater than 50% in coordination of care (as documented) at patient's floor/unit and/or counseling patient: Coding Level of Care Code 31900 SUB INP/OBS CARE 3/50MIN Diagnoses Diarrhea R19.7 Diarrhea type: unspecified type Physical deconditioning R53.81 Abdominal wall cellulitis L03.311 History of bowel resection Z90.49 Hypothyroidism (acquired) E03.9 GERD (gastroesophageal reflux disease) K21.9 Vaginal candidiasis B37.3 Dysphagia R13.10 (1) Diarrhea Diarrhea type: unspecified type Qualified Code(s): R19.7 - Diarrhea, unspecified
[2023-01-10] MEDS: TAFLUPROST/PF 1 EA DROPS OPL SCH (21:06)
[2023-01-10] MEDS: NETARSUDIL MESYLAT/LATANOPROST 37 DROPS/2.5 ML BTL OPR SCH (21:06)
[2023-01-10] MEDS: SERTRALINE HCL 50 MG TABLET PO SCH (21:09)
[2023-01-10] MEDS: LORazepam 0.5 MG TAB PO PRN (21:23)
[2023-01-11] MEDS: LEVOTHYROXINE SODIUM 100 MCG TABLET PO SCH (05:43)
[2023-01-11] MEDS: FAMOTIDINE SUSP 20 MG/2.5 ML UDP PO SCH (07:28)
[2023-01-11] MEDS: ACETAMINOPHEN 500 MG TAB PO PRN (15:37)
--- NOTE | 2023-01-11 16:32 | Hospitalist Progress Note ---
Date of Service January 11, 2023 Assessment & Plan (1) Diarrhea: Plan: Resolved. Gastroenterology consultation and recommendations appreciated (2) Physical deconditioning: Plan: Continue OT and PT. (3) Abdominal wall cellulitis: Plan: Currently on oral Keflex. Minimal findings. Surgery entry noted. Cardwell have been removed from the abdominal incision. Much improved. No signs of deep infection or abscess on CT (4) History of bowel resection: Plan: S/p bowel resection 02/26/22. Diarrhea present on admission appears to be noninfectious and has resolved. CT-A/P:1. Post surgical changes are seen. No evidence of bowel ischemia is seen. No drainable fluid collections. 2. Small pelvic free fluid is likely reactive. 3. Diverticulosis without diverticulitis. 4. Additional findings as above. (5) Hypothyroidism (acquired): Plan: Stable. Continue Synthroid (6) GERD (gastroesophageal reflux disease): Plan: Stable. Continue Pepcid (7) Vaginal candidiasis: Plan: Resolved. Treated with Diflucan (8) Dysphagia: Plan: Due to Schatzki ring. Gets esophageal dilation occasionally. Continue PPI therapy Plan Hopeful discharge to home with home health services January 13 Admission and Anticipated Discharge Date Admission Date: January 08, 2023 Subjective Alert and oriented. No acute medical problems. She states that she wants to talk to the pharmacist and is willing to take codeine 15 mg as needed as she transitions from IV Tylenol to oral Tylenol. She states she is meeting with her home health service tomorrow then hopefully she will go home the day after that. SNF placement apparently is no longer an option. She has requested that lab work be rechecked tomorrow morning. Review of Systems 2 Review of Systems: Constitutional-no fever or chills ENT-no blurred vision, no double vision, no epistaxis, no sore throat Respiratory-no cough, no wheezing, no shortness of breath Cardiac-no palpitations, no chest pain, no syncope GI-no nausea, vomiting, diarrhea, melena, hematochezia -no urinary retention, no urinary incontinence, no dysuria, no hematuria Musculoskeletal-she states she has pain everywhere but cannot be more specific. No overt joint swelling or muscle tenderness Skin-no bruising, no rashes, no pruritus Neuro-no isolated weakness, no paresthesia Psych-no depression, no anxiety Physical Exam 2 Physical Exam: General-alert. No acute distress. Orientation is difficult to assess. HEENT-head atraumatic and normocephalic, pupils equal and reactive to light, extraocular muscles intact Neck-no lymphadenopathy or thyromegaly, trachea midline Chest-clear to auscultation percussion. No rales wheezing or rhonchi Cardiac-regular rate and rhythm, normal S1 and S2, no murmurs Abdomen-normal bowel sounds, no hepatosplenomegaly. Midline abdominal incision is healing well with minimal franck-incisional cellulitis. Cardwell have been removed Extremities-no cyanosis, clubbing, or edema. No joint edema or erythema Neuro-cranial nerves II through XII intact, motor and sensory function within normal limits, strength symmetrical , no focal deficits Psych- dramatic affect Results & Data Results & Data Vital Signs (Past 12 Hours) Vital Signs Temp Pulse Resp BP Pulse Ox O2 Del Method 01/11/23 15:30 36.8 C 70 16 104/67 95 Room Air 01/11/23 07:23 36.7 C 63 18 114/75 99 Room Air Laboratory Results 01/10/23 06:35 01/09/23 08:47 PG Care Time/CCT Total # of Minutes Spent Total Time Spent with Patient: Total time spent is greater than 50% in coordination of care (as documented) at patient's floor/unit and/or counseling patient: Coding Level of Care Code 45337 SUB INP/OBS CARE 3/50MIN Diagnoses Diarrhea R19.7 Diarrhea type: unspecified type Physical deconditioning R53.81 Abdominal wall cellulitis L03.311 History of bowel resection Z90.49 Hypothyroidism (acquired) E03.9 GERD (gastroesophageal reflux disease) K21.9 Vaginal candidiasis B37.3 Dysphagia R13.10 (1) Diarrhea Diarrhea type: unspecified type Qualified Code(s): R19.7 - Diarrhea, unspecified
[2023-01-11] MEDS: SERTRALINE HCL 50 MG TABLET PO SCH (20:22)
[2023-01-11] MEDS: NETARSUDIL MESYLAT/LATANOPROST 37 DROPS/2.5 ML BTL OPR SCH (20:26)
[2023-01-11] MEDS: TAFLUPROST/PF 1 EA DROPS OPL SCH (20:26)
[2023-01-11] MEDS: LORazepam 0.5 MG TAB PO PRN (20:30)
[2023-01-11] MEDS: CODEINE SULFATE 30 MG TAB PO PRN (20:35)
[2023-01-12 06:25] LABS: Basophils # (auto) 0.05 K/uL (0.00-0.20); Basophils % (auto) 0.9 %; Eosinophils # (auto) 0.21 K/uL (0.00-0.50); Hematocrit (blood only) 31.5 % (37.0-47.0); Hemoglobin 10.5 g/dl (12.0-16.0); Immature Granulocytes # (auto) 0.01 K/uL (0.01-0.20); Immature Granulocytes % (auto) 0.2 %; Lymphocytes % (auto) 24.5 %; Mean Corpuscular Hemoglobin 30.1 pg (25.0-34.0); Mean Corpuscular Hgb Conc 33.3 g/dL (32.0-36.0); Mean Corpuscular Volume 90.3 fL (80.0-100.0); Monocytes # (auto) 0.58 K/uL (0.11-0.59); Monocytes % (auto) 10.9 %; Neutrophils # (auto) 3.15 K/uL (1.40-6.50); Neutrophils % (auto) 59.5 %; Platelet Count 543 K/uL (130-400); RDW Coefficient of Variation 15.2 % (11.5-14.5); RDW Standard Deviation 49.5 fL (36.4-46.3); Red Blood Count 3.49 M/uL (4.20-5.40)
[2023-01-12] MEDS: LEVOTHYROXINE SODIUM 100 MCG TABLET PO SCH (06:26)
[2023-01-12 06:40] LABS: Albumin Globulin Ratio 1.5 (0.9-2); Albumin Level 3.4 gm/dl (3.4-5.0); BUN Creatinine Ratio 17.9 (10-20); Bilirubin,Total 0.3 mg/dl (0.2-1.0); Calcium 8.2 mg/dl (8.6-10.3); Creatinine Clr Calc Pharmacy 73.6 ml/min; Est GFR (Non-African American) 90.6 ml/min; Globulin 2.3 gm/dl (2.5-4.0); Potassium 3.7 mmol/L (3.5-5.1); Total Protein 5.7 gm/dl (6.0-8.3)
[2023-01-12 06:59] LABS: Ferritin 77.7 ng/ml (8-388)
[2023-01-12] MEDS: FAMOTIDINE SUSP 20 MG/2.5 ML UDP PO SCH (08:14)
[2023-01-12] MEDS: ACETAMINOPHEN 500 MG TAB PO PRN ×2 (08:14→17:15)
--- NOTE | 2023-01-12 16:16 | Hospitalist Progress Note ---
Date of Service January 12, 2023 Assessment & Plan (1) Diarrhea: Plan: Resolved. Gastroenterology consultation and recommendations appreciated (2) Physical deconditioning: Plan: Continue OT and PT while hospitalized (3) Abdominal wall cellulitis: Plan: Much improved with Keflex. Will discontinue antibiotic therapy today, January 12. Surgery entry noted. Alex have been removed from the abdominal incision. No signs of deep infection or abscess on CT (4) History of bowel resection: Plan: S/p bowel resection 02/26/22. Diarrhea present on admission appears to be noninfectious and has resolved. CT-A/P:1. Post surgical changes are seen. No evidence of bowel ischemia is seen. No drainable fluid collections. 2. Small pelvic free fluid is likely reactive. 3. Diverticulosis without diverticulitis. 4. Additional findings as above. (5) Hypothyroidism (acquired): Plan: Stable. Continue Synthroid (6) GERD (gastroesophageal reflux disease): Plan: Stable. Continue Pepcid (7) Vaginal candidiasis: Plan: Resolved. Treated with Diflucan (8) Dysphagia: Plan: Due to Schatzki ring. Gets esophageal dilation occasionally. Continue PPI therapy Plan Hopeful discharge to home with home health services tomorrow, January 13 Admission and Anticipated Discharge Date Admission Date: January 08, 2023 Subjective Alert and oriented. She seems satisfied with her current pain control. She is taking oral Tylenol and oral codeine as needed now. She is agreeable to stopping the Keflex at this time. Iron levels are normal. Hemoglobin is slightly low but no intervention needed. Hopefully she will go home with home health tomorrow, January 13 Review of Systems 2 Review of Systems: Constitutional-no fever or chills ENT-no blurred vision, no double vision, no epistaxis, no sore throat Respiratory-no cough, no wheezing, no shortness of breath Cardiac-no palpitations, no chest pain, no syncope GI-no nausea, vomiting, diarrhea, melena, hematochezia -no urinary retention, no urinary incontinence, no dysuria, no hematuria Musculoskeletal-she states she has pain everywhere but cannot be more specific. No overt joint swelling or muscle tenderness Skin-no bruising, no rashes, no pruritus Neuro-no isolated weakness, no paresthesia Psych-no depression, no anxiety Physical Exam 2 Physical Exam: General-alert. No acute distress. Orientation is difficult to assess. HEENT-head atraumatic and normocephalic, pupils equal and reactive to light, extraocular muscles intact Neck-no lymphadenopathy or thyromegaly, trachea midline Chest-clear to auscultation percussion. No rales wheezing or rhonchi Cardiac-regular rate and rhythm, normal S1 and S2, no murmurs Abdomen-normal bowel sounds, no hepatosplenomegaly. Midline abdominal incision is healing well with minimal franck-incisional cellulitis. Alex have been removed Extremities-no cyanosis, clubbing, or edema. No joint edema or erythema Neuro-cranial nerves II through XII intact, motor and sensory function within normal limits, strength symmetrical , no focal deficits Psych-normal affect today Results & Data Results & Data Vital Signs (Past 12 Hours) Vital Signs Temp Pulse Resp BP BP Pulse Ox O2 Del Method 01/12/23 15:12 36.6 C 63 18 106/68 98 Room Air 01/12/23 08:00 36.7 C 76 16 129/80 99 Room Air Laboratory Results 01/12/23 05:45 01/12/23 05:45 PG Care Time/CCT Total # of Minutes Spent Total Time Spent with Patient: Total time spent is greater than 50% in coordination of care (as documented) at patient's floor/unit and/or counseling patient: Coding Level of Care Code 93888 SUB INP/OBS CARE 2/35MIN Diagnoses Diarrhea R19.7 Diarrhea type: unspecified type Physical deconditioning R53.81 Abdominal wall cellulitis L03.311 History of bowel resection Z90.49 Hypothyroidism (acquired) E03.9 GERD (gastroesophageal reflux disease) K21.9 Vaginal candidiasis B37.3 Dysphagia R13.10 (1) Diarrhea Diarrhea type: unspecified type Qualified Code(s): R19.7 - Diarrhea, unspecified
[2023-01-12] MEDS: LORazepam 0.5 MG TAB PO PRN (21:05)
[2023-01-12] MEDS: SERTRALINE HCL 50 MG TABLET PO SCH (21:06)
[2023-01-12] MEDS: NETARSUDIL MESYLAT/LATANOPROST 37 DROPS/2.5 ML BTL OPR SCH (21:06)
[2023-01-12] MEDS: TAFLUPROST/PF 1 EA DROPS OPL SCH (21:07)
[2023-01-12] MEDS: CODEINE SULFATE 30 MG TAB PO PRN (21:12)
[2023-01-13] MEDS: LEVOTHYROXINE SODIUM 100 MCG TABLET PO SCH (06:01)
[2023-01-13] MEDS: FAMOTIDINE SUSP 20 MG/2.5 ML UDP PO SCH (08:06)
[2023-01-13] MEDS: ACETAMINOPHEN 500 MG TAB PO PRN (08:06)
[2023-01-13] MEDS ORDERED: POLYETHYLENE (MIRALAX) 17 GM PACK PO SCH (09:15)
--- NOTE | 2023-01-13 11:49 | Discharge Summary ---
Date of Service January 13, 2023 Admission HPI Per Admitting Provider Rody is a 77-year-old female with ah x of SBO 10 days ago s/p bowel resection 02/26/22 and was discharged back to the [facility] personal care unit. She feel she does not get good care there, has been getting weaker, and has had ongoing difficulty with abdominal cramping and PO intake overall since discharge which has not been improving. She requests placement for rehab with goal of getting stronger prior to return to [facility]. Discussed w/ CM while in ER, will require admission and pt/ot for this. Repeat CT appears stable with post op changes and no evidence of intra-abdomianl infeciton. Inferior aspect of her surgical site was noted to be with slightly increased erythema and tenderness concerning for cellulitis, was covered with keflex in the ER.History of small bowel obstruction and ischemic colitis. Per Pt: Rody reports she is having a failure to thrive.Ont he she had abdominal pain, she had lysis of adhesions and bowel resection. She feels since the NGT came out she has just not done well. Expected it would slowly improve over a few days, but she has had minimal appetite and has been getting weaker and weaker at the [facility]. Treid to go for a short walk and was to fatigued to finished and had increased diarrhea as well. She reports she does no ttolerate narcotics due to nausea, chewable tylenol did not help her abdominal discomfort. Has trouble even keeping down her thryoid medication. She has not been able to take macrobid for her chronic UTIs either. She has contineud to have diarrhea immediately after after. [place] swell between meals, but after 1-2 bites of scrambled eggs gets stomach cramps and then has to go to the restroom. Diarrhea is completely liquid. No blood/melena. No light/jun colored bowel movements. C. diff test prior to discharge last Tuesday was negative at the time. Continues to hae abdominal pain 'which comes and goes. Worse with meals and cramps'. IV tylenol improves pain to a 2-3/10, pain gets up to a 10 with cramps after eating. THis pain is different and much less than the pain with her ischemic/necrotic bowel. Also has a sharper/crampy/burnign quality which is different. Thinks her surgical site is doing well, but does hurt to move. Denies urinary symptoms, but notes she has not been able to take her suppressive Macrobid Medical History: Reviewed Medications: Reviewed Surgical History: Reviewed Family history: Reviewed Allergies: Reviewed Social History: No tobacco/etoh Code Status: DNR/DNI Principal Diagnosis Postoperative abdominal wound infection, vaginal candidiasis Discharge Exam General-alert. No acute distress. Orientation is difficult to assess. HEENT-head atraumatic and normocephalic, pupils equal and reactive to light, extraocular muscles intact Neck-no lymphadenopathy or thyromegaly, trachea midline Chest-clear to auscultation percussion. No rales wheezing or rhonchi Cardiac-regular rate and rhythm, normal S1 and S2, no murmurs Abdomen-normal bowel sounds, no hepatosplenomegaly. Midline abdominal incision is healing well with minimal franck-incisional cellulitis. Alex have been removed Extremities-no cyanosis, clubbing, or edema. No joint edema or erythema Neuro-cranial nerves II through XII intact, motor and sensory function within normal limits, strength symmetrical , no focal deficits Psych-normal affect today Discharge Data Allergies Allergy/AdvReac Type Severity Reaction Status Date / Time nickel Allergy Intermediate Rash Verified 01/06/23 14:54 timolol Allergy Unknown Unknown Verified 01/06/23 14:54 Beta-Blockers AdvReac Severe SEVERE Verified 01/06/23 14:54 (Beta-Adrenergic Bloc HYPOTENSION Opioids - Morphine Analogues AdvReac Intermediate Vomiting Verified 01/06/23 14:54 Consultations 01/06/23 15:54 ED Decision to Admit Stat 01/07/23 09:33 Consult Gastroenterology Routine 01/08/23 10:10 Consult General Surgery Routine Ordered Studies 01/06/23 12:25 CT Abd and Pelvis [CT abd pelvis IV con only] Stat Hospital Course (1) Diarrhea: Resolved. Gastroenterology consultation and recommendations appreciated (2) Physical deconditioning: Continue OT and PT while hospitalized. Home health when discharged (3) Abdominal wall cellulitis: Much improved with Keflex. Antibiotics discontinued on January 12. Surgery entry noted. Alex have been removed from the abdominal incision. No signs of deep infection or abscess on CT (4) History of bowel resection: S/p bowel resection 02/26/22. Diarrhea present on admission appears to be noninfectious and has resolved. CT-A/P:1. Post surgical changes are seen. No evidence of bowel ischemia is seen. No drainable fluid collections. 2. Small pelvic free fluid is likely reactive. 3. Diverticulosis without diverticulitis. (5) Hypothyroidism (acquired): Stable. Continue Synthroid (6) GERD (gastroesophageal reflux disease): Stable. Continue Pepcid (7) Vaginal candidiasis: Resolved. Treated with Diflucan (8) Dysphagia: Due to Schatzki ring. Gets esophageal dilation occasionally. Continue PPI therapy (9) S/P exploratory laparotomy: Plan Home with home health services today, January 13 Total Time Total Time Spent Total Time Spent (In Minutes): 40-minute Discharge Plan Discharge Items Patient Disposition: Home - Home Health Services Reason For Visit: DECONDITIONING, NAUSEA, EASY SATIETY Discharge Diagnosis: Postoperative abdominal wound infection, vaginal candidiasis Activity: Resume your previous activity Non-emergency contact: Primary Care Provider Call non-emergency contact if: you have any medication questions and your symptoms worsen Follow-up/Referrals: Carlos Soliman MD [Primary Care Provider] - Diet: Regular and Heart Healthy Addtl Attending Provider Instructions: No lifting more than 20 lbs for the next 4 weeks Continue low fiber diet Pending Studies at Discharge: No Stand-Alone Forms: My [employer], Smoking Cessation Medications and DC Order Prescriptions: New lorazepam 0.5 mg Tablet 0.5 mg PO HS PRN (Reason: sleep) Qty: 20 0RF codeine sulfate 30 mg Tablet 15 mg PO Q6H PRN (Reason: pain) Qty: 20 0RF acetaminophen [Tylenol Extra Strength] 500 mg Tablet 1,000 mg PO Q8H PRN (Reason: pain) Qty: 0 0RF Continued nitrofurantoin macrocrystal 100 mg capsule 100 mg PO HS Qty: 90 1RF Rx Instructions: must administer with a meal/food levothyroxine [Synthroid] 100 mcg tablet 100 mcg PO QAM tafluprost (PF) [Zioptan (PF)] 0.0015 % dropperette 1 drp OPL HS Rocklatan 0.02-0.005 % drops 1 drp OPR HS sertraline 25 mg tablet 25 mg PO HS estradiol 0.5 mg tablet 0.5 mg PO Q7D Rx Instructions: Tuesday estradiol 0.01 % (0.1 mg/gram) cream 1 g VAGINAL 2XWK ondansetron 4 mg tablet,disintegrating 4 mg PO Q8H PRN (Reason: nausea and vomiting) 3 Days Qty: 12 0RF acetaminophen 325 mg tablet,chewable 650 mg PO Q4H PRN (Reason: pain) Qty: 30 0RF Rx Instructions: OTC Ased Eye Drops 1 drp OPB HS Rx Instructions: Special compound for the patient, uses PRIOR to using other two eye drops. Discharge Orders: Discharge Order (Routine); Ordered 01/13/23 Ordered By: Juve Dale Admission Data Admit Date/Time: 01/08/23 13:00 Attending Provider: Juve Dale Admit Provider: Christiano Lucio Primary Care Provider: Carlos Soliman Other Providers: Christiano Lucio; Kennedy Kaur; [facility]; [place],[facility], [place]; Oliver Blanco; [facility] Coding Level of Care Code 79480 INP/OBS DISCH >30 MIN Diagnoses Diarrhea R19.7 Diarrhea type: unspecified type Physical deconditioning R53.81 Abdominal wall cellulitis L03.311 History of bowel resection Z90.49 Hypothyroidism (acquired) E03.9 GERD (gastroesophageal reflux disease) K21.9 Vaginal candidiasis B37.3 Dysphagia R13.10 S/P exploratory laparotomy Z98.890
== END 2023-01-13 13:11 | disposition home health service (06) | DRG 392 ==
LOC: 3E 10:46 → ED 10:46 → SUATTDRO 16:41 → 3E 18:29 → SUATTDRO 01-08 13:00

== ENCOUNTER 2023-02-11 19:42 | Observation (INO) ==
[2023-02-11] MEDS ORDERED: HYDROmorphone INJ 0.5 MG/0.5 ML SYR IV PRN (21:05)
[2023-02-11] MEDS ORDERED: SODIUM CHLORIDE 0.9% 1,000 ML IV ONE (21:05)
[2023-02-11] MEDS ORDERED: ONDANSETRON INJ 2 MG/ML 2 ML VIAL IV STA (21:05)
--- NOTE | 2023-02-11 21:20 | Emergency Department Note ---
Impression & Plan Abdominal pain ED Provider Note NAME: NOLBERTO NASSAR AGE: 77 SEX: F : 1945 ARRIVES VIA: Ambulance INFORMANT: Patient, the patient's significant other ED PROVIDER(S): Aiden Rowe DO CHIEF COMPLAINT: Abdominal pain HPI: The patient is a 77-year-old female who has a recent history of bowel obstruction with bowel resection. She also has a history of ischemic colitis. She presented to the emergency department today because of abdominal pain. She states the pain began acutely at approximately 6 PM this evening. The patient states that she had very severe pain. She notices no GI bleeding. She has had no extensive vomiting but she has noted some degree of constipation recently. The patient was seen in our facility recently for similar complaints. At that time she did have a CT of the abdomen and pelvis. No signs of bowel obstruction were noted at that time. ROS: See above HPI for pertinent positives & negatives. A total of 10 systems reviewed and were otherwise negative. PAST MEDICAL HISTORY: See Below PAST SURGICAL HISTORY: See Below FAMILY HISTORY: See Below SOCIAL HISTORY: See Below HOME MEDICATIONS: See Below ALLERGIES: See Below VITALS: See Below PHYSICAL EXAMINATION: GENERAL: Patient is awake alert in no acute distress patient is resting comfortably and showing no signs of anxiety EYES: The conjunctivae are clear. The pupils are round and reactive. EARS, NOSE, MOUTH AND THROAT: The nose is without any evidence of any deformity. NECK: The neck is nontender and supple. RESPIRATORY: Normal respiratory effort is noted there is no evidence of wheezing rhonchi or rales CARDIOVASCULAR: Regular rate and rhythm noted there no murmurs rubs or gallops normal S1 normal S2. GASTROINTESTINAL: The abdomen was distended and diffusely tender. There is no specific guarding or rigidity. MUSCULOSKELETAL/EXTREMITIES: There is no evidence of gross deformity full range of motion is noted in the hips and shoulders. SKIN: There is no obvious evidence of any rash. There are no petechiae, pallor or cyanosis noted. NEUROLOGIC: Patient is awake alert and oriented x3 MEDICAL DECISION MAKING: The patient is a 77-year-old female who presented to the emergency department for an evaluation of abdominal pain. The patient had diffuse abdominal pain which localized to her lower abdomen. She has a history of bowel obstruction in the past. She also has a history of intestinal ischemia but at this time she is reporting no rectal bleeding or diarrhea. I discussed patient's laboratory and radiographic studies with her. She has had multiple CAT scans over the last few months. X-rays were initially obtained. CT is ordered at this time at the request of the admitting team. I discussed the patient's condition with the on- call [facility] hospitalist. They have agreed to evaluate the patient in the emergency department for further management and disposition. Triage Nursing notes reviewed. Prior medical records reviewed Vital Signs: reviewed and remarkable for elevated blood pressure. Differential diagnosis: Etiologies such as appendicitis, diverticulitis, obstruction, inflammatory bowel disease, renal colic, PUD, biliary pathology, pancreatitis, mesenteric ischemia, aortic pathology, infections, genitourinary, UTI, perforated viscus, as well as others were entertained. ER treatment provided: See below Diagnostics interpreted by me: ECG: EKG was obtained in the emergency department. My interpretation is normal sinus rhythm at 62 bpm. There is no ectopy. There is no acute ST segment abnormalities noted. This was compared to a tracing from January 14, 2023. No changes were noted. Cardiac Monitoring: An order was placed for continuous cardiac monitoring. The monitor shows a rate of 60 bpm with sinus rhythm. Laboratory studies: As stated above and show below. Imaging studies: See below. Radiographic imaging was reviewed by myself Consultation(s): I discussed this case with Dr. Wilder who is on-call for the [facility] hospitalist group. She does request that we order a CAT scan angiography of the abdomen and pelvis prior to the patient be evaluated by the hospitalist. Past Med/Surg History Medical History SBO (small bowel obstruction) Hypothyroidism (acquired) Piriformis syndrome Lumbar radiculopathy Poor vision Recurrent UTI Schatzki's ring History of ischemic colitis IBS (irritable bowel syndrome) Hypothyroidism History of Graves' disease GERD (gastroesophageal reflux disease) Glaucoma Thyroid disorder Surgical History History of bowel resection (12/27/22) Exploratory Laparotomy with Small Bowel Resection(Not Applicable) - Oliver Blanco DO History of Achilles tendon repair Rt History of back surgery History of hysterectomy with unilateral oophorectomy History of esophagogastroduodenoscopy (EGD) History of colonoscopy History of thyroidectomy, subtotal Family History Other Nausea and vomiting after administration of anesthetic agent Social History Smoking Status: Never smoker Second Hand Exposure: No; Do You Dip or Chew Tobacco: No; Hx Alcohol Use: No Hx Substance Use: No Preferred Language: Greenlandic Communication Ability: Effective Communication Ability Comment: Glaucoma Visual Impairment: Severely Limited Backend Tester Required: No Beliefs That Will Affect Care: None Current Living Situation: Spouse Current Living Situation Comment: Yahaira Mueller Feels Safe at Home: Yes Safety Concerns: Feels Safe At This Time Assistive Devices: Glasses Allergies Allergies Allergy/AdvReac Type Severity Reaction Status Date / Time nickel Allergy Intermediate Rash Verified 02/11/23 23:25 timolol Allergy Unknown Unknown Verified 02/11/23 23:25 Beta-Blockers AdvReac Severe SEVERE Verified 02/11/23 23:25 (Beta-Adrenergic Bloc HYPOTENSION Opioids - Morphine Analogues AdvReac Intermediate Vomiting Verified 02/11/23 23:25 Home Meds Home Medications Medication Instructions Recorded Confirmed levothyroxine 100 mcg tablet 100 mcg PO QAM 01/20/19 02/11/23 (Synthroid) netarsudil 0.02 %-latanoprost 1 drp OPR HS 01/20/19 02/11/23 0.005 % eye drops (Rocklatan) tafluprost (PF) 0.0015 % eye drops 1 drp OPL HS 01/20/19 02/11/23 in a dropperette (Zioptan (PF)) estradiol 0.01% (0.1 mg/gram) 1 g vaginal 2XWK 01/02/23 02/11/23 vaginal cream estradiol 0.5 mg tablet 0.5 mg PO Q7D 01/02/23 02/11/23 sertraline 25 mg tablet 25 mg PO HS 01/02/23 02/11/23 Ased Eye Drops 1 drp OPB HS 01/06/23 02/11/23 lactobacillus combination no.4 3 0 mmu cells PO DAILY 02/11/23 02/11/23 billion cell capsule (Probiotic) Previous Rx's Medication Instructions Recorded nitrofurantoin macrocrystal 100 mg 100 mg PO HS #90 caps 08/23/19 capsule acetaminophen 500 mg tablet 1,000 mg (2 x 500 mg) PO Q8H PRN 01/13/23 (Tylenol Extra Strength) pain #0 tabs codeine sulfate 30 mg tablet 15 mg (1/2 x 30 mg) PO Q6H PRN 01/13/23 pain #20 tabs lorazepam 0.5 mg tablet 0.5 mg PO HS PRN sleep #20 tabs 01/13/23 Results & Data (ED) Vital Signs Vital Signs - 24 hr 02/11/23 20:02 02/11/23 23:24 02/12/23 00:22 Temperature 36.6 C Temperature Source Temporal Artery Scan Pulse Rate 60 63 Pulse Rate [Bilateral] 69 Pulse Rate from SpO2 Sensor 64 Pulse Rhythm Regular Pulse Strength Normal Respiratory Rate 25 H 18 18 Respiratory Effort / Characteristics Non-Labored Spontaneous Respiratory Depth Normal Respiratory Pattern Regular Blood Pressure 153/72 H Blood Pressure [Right Arm] 169/95 H Blood Pressure Mean 99 Blood Pressure Mean [Right Arm] 119 Blood Pressure Position Sitting Pulse Oximetry 100 98 98 Oxygen Delivery Method Room Air Room Air Sepsis Recent Fever Within 48 Hours No Sepsis New/Unexplained Change in Mental Status N/A Sepsis Action Taken by Nursing No Action Required 02/12/23 00:30 02/12/23 01:00 Temperature Temperature Source Pulse Rate 60 51 L Pulse Rate [Bilateral] Pulse Rate from SpO2 Sensor 59 L 52 L Pulse Rhythm Pulse Strength Respiratory Rate 12 15 Respiratory Effort / Characteristics Respiratory Depth Respiratory Pattern Blood Pressure Blood Pressure [Right Arm] Blood Pressure Mean Blood Pressure Mean [Right Arm] Blood Pressure Position Pulse Oximetry 99 100 Oxygen Delivery Method Sepsis Recent Fever Within 48 Hours Sepsis New/Unexplained Change in Mental Status Sepsis Action Taken by Care Home Medications Current Medication List: was personally reviewed by me Laboratory Data Attestation: I reviewed the patient's lab results. 02/11/23 Unknown 02/12/23 02:55 Lab Results 02/11/23 02/11/23 Range/Units 22:31 Unknown WBC 10.09 (4.8-10.8) K/ul RBC 4.01 L (4.20-5.40) M/uL Hgb 12.3 (12.0-16.0) g/dl Hct 36.2 L (37.0-47.0) % MCV 90.3 (80.0-100.0) fL MCH 30.7 (25.0-34.0) pg MCHC 34.0 (32.0-36.0) g/dL RDW Std Deviation 46.7 H (36.4-46.3) fL RDW Coeff of Ana Lilia 14.0 (11.5-14.5) % Plt Count 333 (130-400) K/uL MPV 9.3 L (9.4-12.4) fL Immature Gran % (Auto) 0.5 % Neut % (Auto) 78.8 % Lymph % (Auto) 12.1 % [place] % (Auto) 8.0 % Eos % (Auto) 0.2 % Baso % (Auto) 0.4 % Neut # (Auto) 7.95 H (1.40-6.50) K/uL Lymph # (Auto) 1.22 (1.20-3.40) K/uL [place] # (Auto) 0.81 H (0.11-0.59) K/uL Eos # (Auto) 0.02 (0.00-0.50) K/uL Baso # (Auto) 0.04 (0.00-0.20) K/uL Immature Gran # (Auto) 0.05 (0.01-0.20) K/uL Sodium 140 (136-145) mmol/L Potassium 4.1 (3.5-5.1) mmol/L Chloride 107 (98-107) mmol/L Carbon Dioxide 20 L (21-32) mmol/L Anion Gap 13 H (3-11) BUN 11 (6-23) mg/dl Creatinine 0.83 (0.6-1.2) mg/dl Est Cr Clr Drug Dosing Not Reportable Est GFR ( Amer) 79.4 ml/min Est GFR (Non-Af Amer) 68.5 ml/min BUN/Creatinine Ratio 13.3 (10-20) Glucose 126 H (70-99(Fasting)) mg/dl Lactate 1.7 (0.4-2.0) mmol/L Calcium 9.5 (8.6-10.3) mg/dl Total Bilirubin 0.6 (0.2-1.0) mg/dl AST 23 (13-39) U/L ALT 23 (7-52) U/L Alkaline Phosphatase 98 (34-104) U/L Total Protein 7.2 (6.0-8.3) gm/dl Albumin 4.2 (3.4-5.0) gm/dl Globulin 3.0 (2.5-4.0) gm/dl Albumin/Globulin Ratio 1.4 (0.9-2) Lipase 35 (11-82) U/L HCG, Qual Negative (Negative) Administered Medications Lactated Ringer's (Lr) 1,000 mls @ 80 mls/hr IV .[id number] MARIYA Stop: 02/12/23 15:16 Last Admin: 02/12/23 05:54 Dose: 80 mls/hr Documented By: BRANDON Levothyroxine Sodium (Levothyroxine Sodium 100 Mcg Tablet) 100 mcg PO DAILYBB MARIYA Stop: 03/14/23 06:29 Last Admin: 02/12/23 05:55 Dose: 100 mcg Documented By: BRANDON Discontinued Medications Sodium Chloride (Nss) 1,000 mls @ 999 mls/hr IV .[id number] ONE Stop: 02/11/23 22:05 Last Infusion: 02/12/23 00:59 Dose: Infused Documented By: Admin: 02/11/23 23:36 Dose: 999 mls/hr Documented By: CHRISTINA Lorazepam (Lorazepam 1 Mg/1 Ml Syr Ed Inj Use) 0.5 mg IV ONE STA Stop: 02/12/23 01:03 Last Admin: 02/12/23 01:27 Dose: 0.5 mg Documented By: REJI Ondansetron HCl (Ondansetron Inj 2 Mg/Ml 2 Ml Vial) 4 mg IV NOW STA Stop: 02/11/23 21:06 Last Admin: 02/11/23 23:34 Dose: Not Given Documented By: CHRISTINA Ondansetron HCl (Ondansetron Inj 2 Mg/Ml 2 Ml Vial) Confirm Administered Dose 4 mg .ROUTE .STK-MED ONE Stop: 02/11/23 23:29 Last Admin: 02/12/23 01:00 Dose: Not Given Documented By: REJI Imaging Data Attestation: I personally reviewed and interpreted this imaging study as follows: My Impression: 1 view chest x-ray was obtained in the emergency department. My interpretation is no free air or definite infiltrate, final report pending. KUB was obtained in the emergency department. My interpretation is no signs of bowel obstruction or free air, final report pending. Radiologist's Impression: Chest X-Ray 02/11/23 20:07 SINGLE VIEW CHEST CLINICAL HISTORY: Epigastric abdominal pain FINDINGS: An AP, portable, upright chest radiograph is compared to chest x-ray and chest CT dated 12/26/2022. The heart is enlarged noting atherosclerotic calcification of the thoracic aorta. The pulmonary vasculature is nondistended congested. Chronic interstitial thickening is similar to previous. There is mild bibasilar scarring/atelectasis. The lungs and pleural spaces are otherwise clear. No pneumothorax is seen. The skeletal structures are osteopenic. The bony thorax is grossly intact. IMPRESSION: Cardiomegaly with no acute cardiopulmonary abnormality. ACT 112: Negative or not required by law. Electronically signed by: Jean Paul Alicea M.D. 02/12/2023 12:06 AM KUB X-Ray 02/11/23 20:51 KUB HISTORY: Acute generalized abdominal pain pain COMPARISON: CTA today FINDINGS: Nonobstructive bowel gas pattern. No renal calculi. No ureteral calculi. No pneumoperitoneum or pneumatosis. No fracture. IMPRESSION: Nonobstructive bowel gas pattern. ACT 112: Negative or not required by law. The above report was generated using voice recognition software. It may contain grammatical, syntax or spelling errors. Electronically signed by: Alfonso Trent M.D. 02/12/2023 8:01 AM Abdomen/Pelvis CTA 02/11/23 22:44 Exam(s): CTA ABDOMEN + PELVIS With Contrast IV Amt: 116 ml EXAM: CT Angiography Abdomen and Pelvis With Intravenous Contrast CLINICAL HISTORY: Reason for exam: Lower pain with history of ischemic colitis. TECHNIQUE: Axial computed tomographic angiography images of the abdomen and pelvis with intravenous contrast. CTDI is 16.63 mGy and DLP is 726.27 mGy-cm. Automated exposure control was utilized for the study. A dose lowering technique was utilized adhering to the principles of ALARA. MIP reconstructed images were created and reviewed. CONTRAST: Patient received 116 ml of IV contrast COMPARISON: No relevant prior studies available. FINDINGS: VASCULATURE: Aorta: Atherosclerotic disease. No abdominal aortic aneurysm. No dissection. Celiac trunk and mesenteric arteries: No acute findings. No occlusion or significant stenosis. Renal arteries: No acute findings. No occlusion or significant stenosis. Iliac arteries: No acute findings. No occlusion or significant stenosis. Lung bases: Dependent scarring at the lung bases. No consolidation. ABDOMEN: Liver: Unremarkable. No mass. Gallbladder and bile ducts: Unremarkable. No calcified stones. No ductal dilation. Pancreas: Unremarkable. No ductal dilation. No mass. Spleen: Unremarkable. No splenomegaly. Adrenals: Unremarkable. No mass. Kidneys and ureters: Unremarkable. No hydronephrosis. No solid mass. Stomach and bowel: No evidence of bowel obstruction. Colonic diverticulosis. No evidence of diverticulitis. PELVIS: Appendix: No findings to suggest acute appendicitis. Bladder: Unremarkable. No mass. Reproductive: Unremarkable as visualized. ABDOMEN and PELVIS: Intraperitoneal space: Enteric anastomosis in the right hemiabdomen. No significant fluid collection. No free air. Bones/joints: No acute fracture. No dislocation. Degenerative changes in the spine. Soft tissues: Umbilical hernia containing fat. Lymph nodes: Unremarkable. No enlarged lymph nodes. IMPRESSION: 1. No evidence of pneumatosis, portal venous gas, or free air. 2. Enteric anastomosis in the right hemiabdomen. 3. No other acute findings. 4. Incidental findings as described. Electronically signed by: Alessandro Chapin MD 02/12/23 06:33 AM Discharge Plan Visit Data Chief Complaint: Abdominal Pain ED Provider: Aiden Rowe Discharge Problem: Abdominal pain Patient Disposition: Being Evaluated by Hospitalist Discharge Instructions Interventions: ED Discharge Assessment Last Done: 02/12/23 02:20 Discharge Problem: Abdominal pain Qualifiers: Abdominal location: lower abdomen, unspecified Qualified Code(s): R10.30 - Lower abdominal pain, unspecified
[2023-02-11 21:37] LABS: Basophils # (auto) 0.04 K/uL (0.00-0.20); Basophils % (auto) 0.4 %; Eosinophils # (auto) 0.02 K/uL (0.00-0.50); Eosinophils % (auto) 0.2 %; Hematocrit (blood only) 36.2 % (37.0-47.0); Hemoglobin 12.3 g/dl (12.0-16.0); Immature Granulocytes # (auto) 0.05 K/uL (0.01-0.20); Immature Granulocytes % (auto) 0.5 %; Lymphocytes # (auto) 1.22 K/uL (1.20-3.40); Lymphocytes % (auto) 12.1 %; Mean Corpuscular Hemoglobin 30.7 pg (25.0-34.0); Mean Corpuscular Volume 90.3 fL (80.0-100.0); Mean Platelet Volume 9.3 fL (9.4-12.4); Monocytes # (auto) 0.81 K/uL (0.11-0.59); Neutrophils # (auto) 7.95 K/uL (1.40-6.50); Neutrophils % (auto) 78.8 %; Platelet Count 333 K/uL (130-400); RDW Standard Deviation 46.7 fL (36.4-46.3); Red Blood Count 4.01 M/uL (4.20-5.40); White Blood Count 10.09 K/ul (4.8-10.8)
[2023-02-11 21:44] LABS: Pregnancy Test, Serum Negative (Negative)
[2023-02-11 21:50] LABS: Alanine Aminotransferase 23 U/L (7-52); Albumin Globulin Ratio 1.4 (0.9-2); Albumin Level 4.2 gm/dl (3.4-5.0); Alkaline Phosphatase 98 U/L (34-104); Anion Gap 13 (3-11); Aspartate Aminotransferase 23 U/L (13-39); BUN Creatinine Ratio 13.3 (10-20); Bilirubin,Total 0.6 mg/dl (0.2-1.0); Blood Urea Nitrogen 11 mg/dl (6-23); Calcium 9.5 mg/dl (8.6-10.3); Carbon Dioxide 20 mmol/L (21-32); Chloride 107 mmol/L (98-107); Est GFR (African American) 79.4 ml/min; Est GFR (Non-African American) 68.5 ml/min; Glucose 126 mg/dl (70-99(Fasting)); Lipase 35 U/L (11-82); Potassium 4.1 mmol/L (3.5-5.1); Sodium 140 mmol/L (136-145); Total Protein 7.2 gm/dl (6.0-8.3)
[2023-02-11] MEDS ORDERED: ONDANSETRON INJ 2 MG/ML 2 ML VIAL ONE (23:28)
--- NOTE | 2023-02-12 00:07 | XRay Report ---
SINGLE VIEW CHEST CLINICAL HISTORY: Epigastric abdominal pain FINDINGS: An AP, portable, upright chest radiograph is compared to chest x-ray and chest CT dated 01/2023. The heart is enlarged noting atherosclerotic calcification of the thoracic aorta. The pulmon varinder vasculature is nondistended congested. Chronic interstitial thickening is similar to previous. Th ere is mild bibasilar scarring/atelectasis. The lungs and pleural spaces are otherwise clear. No pneu mothorax is seen. The skeletal structures are osteopenic. The bony thorax is grossly intact. IMPRESSION: Cardiomegaly with no acute cardiopulmonary abnormality. ACT 112: Negative or not required by law. Electronically signed by: Jean Paul Alicea M.D. 02/12/2023 12:06 AM
--- OUTSIDE RECORDS SUMMARY | 2023-02-12 00:44 | External Medical Summary | Continuity of Care Document ---
Author Name Unknown Organization [address] [id number] Care Team Providers Care Statistics Intern Name Role Phone Carlos Soliman Primary Care Physician [phone] [id number] Date(s): 01/19/23 - 01/19/[address] [address] [phone] Encounter Diagnosis S/P small bowel resection(Discharge Diagnosis) - 01/19/23 Physical deconditioning(Discharge Diagnosis) - 01/19/23 Discharge Disposition: Home or Self Care Attending Physician: CARLO Oquendo Tara Referring Physician: MD Soliman Jesse Allergies, Adverse Reactions, Alerts Substance Reaction Severity Status timolol Active opioid-like analgesics Vomiting Moderate Activ e Assessment and Plan Extracted from: Title:TeleHealth Visit Note Author:CARLO Oquendo Tara Date:01/19/23 1.S/P small bowel resectio n 2.Physical deconditioning Acute/Chronic: acute Goal:Resolution/ control Status:ongoing Data: records/pt report Plan: PT is recovering from small bowel resection. She has had deconditioning due to hospital stay. She presently has home nursing, PT/OT. Will end order for these to [facility]. She is also requesting a consult with GI due to her hx of IBS and recent issues requiring bowel resection. She has appt with her PCP next week that I have encouraged her to keep. time spent reviewing chart, face to face visit, ordersand documentation: 32 min Immunizations Given and Recorded Vaccine Date Status [...] 6Result Comment: 2021-06-17: Historical information-source unspecified Medications levothyroxine 100 mcg (0.1 mg) oral tablet Start: 02/16/13 13:08:00, 1 tab, PO, Daily Start Date: 02/16/13 Status: Ordered sertraline 25 mg oral tablet Start: 07/23/22 10:56:00 EDT, 1 tab, PO, Daily Start Date: 07/23/22 Status: Ordered Systane Nighttime ophthalmic ointment Start: 04/18/17 13:17:00, 1 appl, both eyes, qhs, PRN: dry eyes Start Date: 04/18/17 Status: Ordered unknown medication Start: 04/18/17 13:18:00 EST, rocklatan 1 drop R eye daily Start Date: 04/18/17 Status: Ordered Zioptan Start: 02/26/14 12:54:00, 1 drop, both eyes, qPM Start Date: 02/26/14 Status: Ordered Mental Status 01/19/23 Barriers to Learning one year None evide nt Mandatory Health Literacy Documentation Yes Health Literacy Communication Barriers N ever Primary Language Ugandan Problem List Condition Confirmation Course Effective Dates Status H ealth Status Informant Cataract of both eyes Confirmed Active Lumbar disc disease Confirmed Active Dry eyes Confirmed Active Fuchs' endothelial dystrophy Confirmed Active H/O Achilles tendon repair Confirmed Active Right hip pain Confirmed Active Hypothyroidism Confirmed Active Spondylolisthesis, lumbar region Confirmed Active Myopia Confirmed Active PVD (posterior vitreous detachment) Confirmed Active POAG (primary open-angle glaucoma) Confirmed Active Retinal tear of both eyes Confirmed Active Diagnosis Diagnosis Type Effective Dates Health Status Clinical Service Informant S/P small bowel resection Discharge Diagnosis 01/19/23 Physical deconditioning Discharge Diagnosis 01/19/23 Procedures Procedure Date Related Diagnosis Body Site Status Back surgery 1984 Completed Abdominal hysterectomy Co mpleted Achilles tendon Completed SLT - selective laser trabeculoplasty 1 Completed Thyroid Completed 1RE Social History Social History Type Response Smoking Status Never smoked cigaret finn Sex Female [facility] Outpt Note * CARLO Oquendo Tara: PERFORM, MODIFY Event Display: FCM Outpt Note Authored Date: TeleHealth Visit Note I have confirmed the patients name and date of . The patient has consented to this service,and I have advised the patient that this is a billable visit for which they may be subject to a copay. [ _x ] The patient has initiated this visit after he/she was informed of the availability of telehealth for this medically necessary visit. [ _ ] The provider initiated this visit after explaining the need for this visit to the patient, who has consented to this virtual visit. I am located at my: [ _x ] Office [ _ ] Home [ _ ] Other: _ The patient is located at: [ _x ] Home [ _ ] Other: _ This visit was conducted via live audio/video technology: [ _x ] [facility] [ _ ] Zoom This visit was conducted via [ _ ] Telephone, and was not related to a visit or procedure that occurred within the past 7 days. Telephone Only Visit: Reason for audio only visit was [ _ ] no internet connection available [ _ ] Other: _. Total time spent communicating with the patient: _ minutes Chief Complaint Not feeling well and would like Home Health Care. bp 128/77, pulse ox 98, HR 80, wt. 131 History of Present Illness Pt underwent a small bowel resection on 12/27. She was d/c on 01/13. She was seen back in the ER on01/14 due to constipation. She presently is at home and has home nursing and PT/OT. She has had a bowel movement yesterday. She is taking miralax. She is on a low residue diet. She report that she has a long standing hx of IBS. She reports that her incision is healing well. She has lost over 10lbs. Review of Systems as per HPI Physical Exam General: No Acute Distress. Speaking comfortably and without audible anxiety. Neurologic: Alert and Oriented x 3, able to interact. Psychiatric: Pleasant, normal affect. Respiratory: Able to complete full sentences. Assessment/Plan 1.S/P small bowel resection 2.Physical deconditioning Acute/Chronic: acute Goal:Resolution/ control Status:ongoing Data: records/pt report Plan:PT is recovering from small bowel resection. She has had deconditioning due to hospital stay. She presently has home nursing, PT/OT. Will end order for these to [facility]. She is also requesting a consult with GI due to her hx of IBS and recent issues requiring bowel resection.She has appt with her PCP next week that I have encouraged her to keep. time spent reviewing chart, face to face visit, ordersand documentation: 32 min Problem List/Past Medical History Ongoing Cataract of both eyes Dry eyes Fuchs' endothelial dystrophy H/O Achilles tendon repair Hypothyroidism Lumbar disc disease Myopia POAG (primary open-angle glaucoma) PVD (posterior vitreous detachment) Retinal tear of both eyes Right hip pain Spondylolisthesis, lumbar region Historical Achilles bursitis Achilles tendinosis Ankle pain Ankle pain Hamstring strain Knee MCL sprain Knee pain Left knee pain Left tibialis posterior tendinitis Pes anserine bursitis Pes anserinus tendinitis of right lower extremity Right lumbar radiculopathy Sprain of ankle Strain of hamstring insertion Trochanteric bursitis of left hip Procedure/Surgical History Back surgery (1983)Abdominal hysterectomyAchilles tendonThyroidSLT - selective lasertrabeculoplasty Medications levothyroxine(levothyroxine 100 mcg (0.1 mg) oral tablet), 100 mcg= 1 tab, PO, Daily ocular lubricant(Systane Nighttime ophthalmic ointment), 1 appl, both eyes, qhs, PRN sertraline(sertraline 25 mg oral tablet), 25 mg= 1 tab, PO, Daily tafluprost ophthalmic(Zioptan), 1 drop, both eyes, qPM unknown medication Allergies opioid-like analgesics (Moderate)Vomiting timolol Social History Smoking Status Never smoked cigarettes Family History Cancer: Mother. Glaucoma: Mother. Heart attack: Mother and Father. Heart disease: Mother and Father. Multiple myeloma: Mother. Stroke: PGF. Health Status Family Member(s) Immunizations Vaccine Date Status SARS-CoV-2 (COVID-19) mRNA-1273 vaccine 01/02/2021 Recorded Comments : 2021-06-17: Historical information-source unspecified SARS-CoV-2 (COVID-19) mRNA-1273 vaccine 04/11/2020 Recorded Comments : 2021-06-17: Historical information-source unspecified SARS-CoV-2 (COVID-19) mRNA-1273 vaccine 03/14/2020 Recorded Comments : 2021-06-17: Historical information-source unspecified zoster vaccine, inactivated 01/31/2019 Recorded Comments : 2021-06-17: Historical information-source unspecified pneumococcal 13-valent vaccine 03/09/2016 Recorded Comments : 2021-06-17: Historical information-source unspecified influenza virus vaccine, H1N1 02/20/2009 Recorded Comments : 2021-06-17: Historical information-source unspecified Recommendations Health Maintenance Pending(in the next year) OverDue Adult Influenza Vaccine due08/14/22and every 1year Due Adult COVID-19 Vaccination due01/19/23Unknown Frequency Adult Tdap/Td Vaccine due01/19/23Unknown Frequency Hepatitis C Screening due01/19/23One-time only Medicare Annual Wellness Visit due01/19/23and every 1year Osteoporosis Screening due01/19/23One-time only Pneumococcal Vaccine Older Adults due01/19/23One-time only Shingles Vaccine due01/19/23One-time only Due In Future Body Mass Index not due until07/24/23and every 366day Satisfied(in the past 1 year) Satisfied Body Mass Index on07/23/22.Satisfied by PAULA Sierra Donna Electronic Signature on File Electronically Reviewed/Signed by: CARLO Ferro Author Signature Dt/Tm:01/19/2023 09:20 AM Department of Family Medicine Electronically Reviewed/Signed by: CARLO Ferro Cosigner Signature Dt/Tm: 01/19/2023 09:20 AM Department of Family Medicine TB Patient Care team information Care Team Personnel Name: MD Soliman Jesse Position: Physician Member Role: Primary Care Provider Address: Address: [address] [place] [id number] [place] Care Team Related Persons Name: SANDIE NASSAR Address: home [address] [place] [address] [place] [phone]
--- OUTSIDE RECORDS SUMMARY | 2023-02-12 00:44 | External Medical Summary | Continuity of Care Document ---
Author Name Unknown Organization [address] Address [address] [place] [address] [place] [id number] Care Team Providers Care Tool And Die Manager Name Role Phone Carlos Soliman Primary Care Physician [phone] [facility] [id number] Date(s): 01/25/23 - 01/25/[address], [facility] [address] [place] [address] [phone] Encounter Diagnosis Body mass index [BMI] 24.0-24.9, adult(Discharge Diagnosis) - 01/25/23 Anemia(Discharge Diagnosis) - 01/25/23 Acute weakness(Discharge Diagnosis) - 01/25/23 Bowel obstruction(Discharge Diagnosis) - 01/25/23 Discharge Disposition: Home or Self Care Attending [...] 6Result Comment: 2021-06-17: Historical information-source unspecified Medications azelastine 137 mcg/inh (0.1%) nasal spray Start: 01/25/23 10:49:00 EST, prn Start Date: 01/25/23 Status: Ordered codeine sulfate 30 mg oral tablet Start: 01/25/23 10:23:00 EST, 1 tab, PO, q4h, Refills: 0, PRN: as needed for cough Start Date: 01/25/23 Status: Ordered estradiol 0.5 mg/0.5 g (0.1%) transdermal gel Start: 01/25/23 10:47:00 EST, See Instructions, 1 each topical, weekly Start Date: 01/25/23 Status: Ordered levothyroxine 100 mcg (0.1 mg) oral tablet Start: 02/16/13 13:08:00, 1 tab, PO, Daily Start Date: 02/16/13 Status: Ordered loratadine 10 mg oral capsule Start: 01/25/23 10:45:00 EST, 1 cap, PO, Daily Start Date: 01/25/23 Status: Ordered Macrodantin 100 mg oral capsule Start: 01/25/23 10:50:00 EST, keno terminal operator prophylaxis Start Date: 01/25/23 Status: Ordered NexIUM Start: 01/25/23 10:44:00 EST, See Instructions, 20 mg PO twice weekly Start Date: 01/25/23 Status: Ordered ondansetron 4 mg oral tablet, disintegrating Start: 01/25/23 10:25:00 EST, 1 tab, PO, ONCE, PRN: as needed for nausea/vomiting Start Date: 01/25/23 Status: Ordered sertraline 25 mg oral tablet Start: 07/23/22 10:56:00 EDT, 1 tab, PO, Daily Start Date: 07/23/22 Status: Ordered sertraline 50 mg oral tablet Start: 01/25/23 10:42:00 EST, 1 tab Start Date: 01/25/23 Status: Ordered Systane Nighttime ophthalmic ointment Start: 04/18/17 13:17:00, 1 appl, both eyes, qhs, PRN: dry eyes Start Date: 04/18/17 Status: Ordered unknown medication Start: 04/18/17 13:18:00 EST, rocklatan 1 drop R eye daily Start Date: 04/18/17 Status: Ordered Zioptan Start: 02/26/14 12:54:00, 1 drop, both eyes, qPM Start Date: 02/26/14 Status: Ordered Problem List Condition Confirmation Course Effective Dates [...] Effective Dates Health Status Clinical Service Informant Acute weakness Discharge Diagnosis 01/25/23 Non-Specified Bowel obstruction Discharge Diagnosis 01/25/23 Non-Specified Body mass index [BMI] 24.0-24.9, adult Discharge Diagnosis 01/25/23 Non-Specified Anemia Discharge Diagnosis 01/25/23 Procedures Procedure Date Related Diagnosis Body Site Status Back surgery 1983 Completed Abdominal hysterectomy Co mpleted Achilles tendon Completed SLT - selective laser trabeculoplasty 1 Completed Thyroid Completed 1RE Vital Signs Most recent to oldest [Reference Range]: 1 Height 157.7 cm (01/25/23 10:27 AM) Patient Weight 61.6 kg (01/25/23 10:27 AM) Body Mass Index 24.77 kg/m2 (01/25/23 10:27 AM) Temperature [36.5-37.9 DegC] 37.3 DegC (01/25/23 10:27 AM) Heart Rate 57 bpm (01/25/23 10:27 AM) Respiratory Rate 16 br/min (01/25/23 10:27 AM) Blood Pressure 100/50mmHg (01/25/23 10:27 AM) Social History Social History Type Response Smoking Status Never smoked cigaret finn Sex Female Patient Care team information Care Team Personnel Name: MD Soliman Jesse Position: Physician Member Role: Primary Care Provider Address: Address: [address] [place] [id number] Care Team Related Persons Name: SANDIE NASSAR Address: home [address] [phone]
[2023-02-12] MEDS ORDERED: LORazepam 1 MG/1 ML SYR ED Inj Use IV STA (01:02)
--- NOTE | 2023-02-12 01:02 | History & Physical Report ---
Date of Service February 12, 2023 Assessment & Plan (1) Abdominal pain: Plan: 77yo female with history of ischemic colitis in 2008, SBO s/p bowel resection performed on 12/27/22 presenting with abdominal pain and nausea. Labs with mild anion gap of 13 and serum HCO3 of 20. Lactate is within normal range. CT of the abdomen with IV contrast has been obtained - awaiting read. Appears by my interpretation to have some distended bowel loops. -Admit to medical -Await CT read -BMP and Lactate q 4 hours - next one due at 06:47 then 10:47 -Compazine as needed for nausea -Dilaudid as needed for pain -Will keep patient NPO -Gentle IVF 80mL/hr x 1L -Check Mg and PO4 and replete as needed (2) Hypothyroidism (acquired): Plan: Chronic. Stable -Continue Synthroid (3) Anxiety: Plan: Chronic. -Continue Sertraline -Ativan PRN History of Present Illness Chief Complaint: abdominal pain Primary Care Provider: MD Dr. Amol Michael is a pleasant 77yo female with remote history of ischemic colitis in 2008, recently admitted to [facility] for SBO with exploratory laparotomy and small bowel resection performed on 12/27/22 presenting with abdominal pain. Patient reports that her bowels have not yet fully recovered from her surgery in December. She has been having episodes of severe abdominal pain as well as diarrhea and constipation. She has been taking milk of magnesium, Miralax and Fiber supplements. Patient was overall feeling well today. Around 17:00 she was making dinner when she developed severe, shooting abdominal pain which was similar to when she had ischemic colitis. The pain was severe, located in upper abdomen, lasted 2-3 hours then resolved. No associated nausea/vomiting or diarrhea. Pain was not related to a meal. No report of fever, chills, rigors. Her pain has improved with Toradol, Zofran has improved nausea. Still with discomfort, 4/10 in severity. Now more diffuse pain in abdomen. No BM or flatus since the pain started. In the ER she is afebrile, HD stable Allergies Allergy/AdvReac Type Severity Reaction Status Date / Time nickel Allergy Intermediate Rash Verified 02/11/23 23:25 timolol Allergy Unknown Unknown Verified 02/11/23 23:25 Beta-Blockers AdvReac Severe SEVERE Verified 02/11/23 23:25 (Beta-Adrenergic Bloc HYPOTENSION Opioids - Morphine Analogues AdvReac Intermediate Vomiting Verified 02/11/23 23:25 Home Medications Medication Instructions Recorded Confirmed Type levothyroxine 100 mcg tablet 100 mcg PO QAM 01/20/19 02/11/23 History (Synthroid) netarsudil 0.02 %-latanoprost 1 drp OPR HS 01/20/19 02/11/23 History 0.005 % eye drops (Rocklatan) tafluprost (PF) 0.0015 % eye drops 1 drp OPL HS 01/20/19 02/11/23 History in a dropperette (Zioptan (PF)) nitrofurantoin macrocrystal 100 mg 100 mg PO HS #90 caps 08/23/19 02/11/23 Rx capsule estradiol 0.01% (0.1 mg/gram) 1 g vaginal 2XWK 01/02/23 02/11/23 History vaginal cream estradiol 0.5 mg tablet 0.5 mg PO Q7D 01/02/23 02/11/23 History sertraline 25 mg tablet 25 mg PO HS 01/02/23 02/11/23 History Ased Eye Drops 1 drp OPB HS 01/06/23 02/11/23 History acetaminophen 500 mg tablet 1,000 mg (2 x 500 mg) PO Q8H PRN 01/13/23 02/11/23 Rx (Tylenol Extra Strength) pain #0 tabs codeine sulfate 30 mg tablet 15 mg (1/2 x 30 mg) PO Q6H PRN 01/13/23 02/11/23 Rx pain #20 tabs lorazepam 0.5 mg tablet 0.5 mg PO HS PRN sleep #20 tabs 01/13/23 02/11/23 Rx lactobacillus combination no.4 3 0 mmu cells PO DAILY 02/11/23 02/11/23 History billion cell capsule (Probiotic) Past Med/Surg History Medical History SBO (small bowel obstruction) Hypothyroidism (acquired) Piriformis syndrome Lumbar radiculopathy Poor vision Recurrent UTI Schatzki's ring History of ischemic colitis IBS (irritable bowel syndrome) Hypothyroidism History of Graves' disease GERD (gastroesophageal reflux disease) Glaucoma Thyroid disorder Surgical History History of bowel resection (12/27/22) Exploratory Laparotomy with Small Bowel Resection(Not Applicable) - Oliver Blanco DO History of Achilles tendon repair Rt History of back surgery History of hysterectomy with unilateral oophorectomy History of esophagogastroduodenoscopy (EGD) History of colonoscopy History of thyroidectomy, subtotal Family History Other Nausea and vomiting after administration of anesthetic agent Social History Smoking Status: Never smoker Second Hand Exposure: No; Do You Dip or Chew Tobacco: No; Hx Alcohol Use: No Hx Substance Use: No Preferred Language: French Communication Ability: Effective Communication Ability Comment: Glaucoma Visual Impairment: Severely Limited Assistant Therapy Aide Required: No Beliefs That Will Affect Care: None Current Living Situation: Spouse Current Living Situation Comment: [facility] Feels Safe at Home: Yes Safety Concerns: Feels Safe At This Time Assistive Devices: Glasses Review of Systems Review of Systems: All systems reviewed & are unremarkable except as noted in HPI & below Physical Exam Physical Exam: General: patient resting comfortably, NAD, non-toxic in appearance, AA&O x 4 Skin: warm, dry, intact, no rashes or lesions HEENT: NC/AT, PERRL, EOMI, anicteric sclera, conjunctiva without injection, external ear normal to inspection and nontender, nares patent, moist mucus membranes, dentition intact, no oropharyngeal lesions, neck supple, trachea midline, no LAD, no thyromegaly, no JVD Heart: +S1/S2, regular, no m/r/g Lungs: equal air entry bilaterally, no rales/rhonchi/wheezes Abd: diminished bowel sounds, non-distended, soft, diffusely tender with some voluntary guarding Ext: warm, 2+ pulses in UE/LE bilaterally, no clubbing/cyanosis or edema Neuro: nonfocal, patient AA&O x 4, speech intact, no facial droop, moving all extremities on command with equal strength 5/5 Results & Data Results & Data Vital Signs (Past 12 Hours) Vital Signs Temp Pulse Pulse Resp BP BP Pulse Ox 02/11/23 23:24 69 18 169/95 H 98 02/11/23 20:02 36.6 C 60 25 H 153/72 H 100 O2 Del Method 02/11/23 23:24 Room Air 02/11/23 20:02 Room Air Laboratory Results Laboratory Results WBC 10.09 K/ul (4.8-10.8) 02/11/23 Unknown RBC 4.01 M/uL (4.20-5.40) L 02/11/23 Unknown Hgb 12.3 g/dl (12.0-16.0) 02/11/23 Unknown Hct 36.2 % (37.0-47.0) L 02/11/23 Unknown MCV 90.3 fL (80.0-100.0) 02/11/23 Unknown MCH 30.7 pg (25.0-34.0) 02/11/23 Unknown MCHC 34.0 g/dL (32.0-36.0) 02/11/23 Unknown RDW Std Deviation 46.7 fL (36.4-46.3) H 02/11/23 Unknown RDW Coeff of Ana Lilia 14.0 % (11.5-14.5) 02/11/23 Unknown Plt Count 333 K/uL (130-400) 02/11/23 Unknown MPV 9.3 fL (9.4-12.4) L 02/11/23 Unknown Immature Gran % (Auto) 0.5 % 02/11/23 Unknown Neut % (Auto) 78.8 % 02/11/23 Unknown Lymph % (Auto) 12.1 % 02/11/23 Unknown [place] % (Auto) 8.0 % 02/11/23 Unknown Eos % (Auto) 0.2 % 02/11/23 Unknown Baso % (Auto) 0.4 % 02/11/23 Unknown Neut # (Auto) 7.95 K/uL (1.40-6.50) H 02/11/23 Unknown Lymph # (Auto) 1.22 K/uL (1.20-3.40) 02/11/23 Unknown [place] # (Auto) 0.81 K/uL (0.11-0.59) H 02/11/23 Unknown Eos # (Auto) 0.02 K/uL (0.00-0.50) 02/11/23 Unknown Baso # (Auto) 0.04 K/uL (0.00-0.20) 02/11/23 Unknown Immature Gran # (Auto) 0.05 K/uL (0.01-0.20) 02/11/23 Unknown Sodium 139 mmol/L (136-145) 02/12/23 02:55 Potassium 3.7 mmol/L (3.5-5.1) 02/12/23 02:55 Chloride 113 mmol/L (98-107) H 02/12/23 02:55 Carbon Dioxide 20 mmol/L (21-32) L 02/12/23 02:55 Anion Gap 6 (3-11) 02/12/23 02:55 BUN 9 mg/dl (6-23) 02/12/23 02:55 Creatinine 0.75 mg/dl (0.6-1.2) 02/12/23 02:55 Est Cr Clr Drug Dosing 55.6 ml/min 02/12/23 02:55 Est GFR ( Amer) 89.7 ml/min 02/12/23 02:55 Est GFR (Non-Af Amer) 77.4 ml/min 02/12/23 02:55 BUN/Creatinine Ratio 12.0 (10-20) 02/12/23 02:55 Glucose 104 mg/dl (70-99(Fasting)) H 02/12/23 02:55 Lactate 1.2 mmol/L (0.4-2.0) 02/12/23 02:55 Calcium 8.4 mg/dl (8.6-10.3) L 02/12/23 02:55 Phosphorus 2.9 mg/dl (2.5-4.9) 02/12/23 02:55 Magnesium 2.0 mg/dl (1.7-2.4) 02/12/23 02:55 Total Bilirubin 0.6 mg/dl (0.2-1.0) 02/11/23 Unknown AST 23 U/L (13-39) 02/11/23 Unknown ALT 23 U/L (7-52) 02/11/23 Unknown Alkaline Phosphatase 98 U/L (34-104) 02/11/23 Unknown Total Protein 7.2 gm/dl (6.0-8.3) 02/11/23 Unknown Albumin 4.2 gm/dl (3.4-5.0) 02/11/23 Unknown Globulin 3.0 gm/dl (2.5-4.0) 02/11/23 Unknown Albumin/Globulin Ratio 1.4 (0.9-2) 02/11/23 Unknown Lipase 35 U/L (11-82) 02/11/23 Unknown HCG, Qual Negative (Negative) 02/11/23 Unknown Impressions Chest X-Ray 02/11/23 20:07 SINGLE VIEW CHEST CLINICAL HISTORY: Epigastric abdominal pain FINDINGS: An AP, portable, upright chest radiograph is compared to chest x-ray and chest CT dated 12/26/2022. The heart is enlarged noting atherosclerotic calcification of the thoracic aorta. The pulmonary vasculature is nondistended congested. Chronic interstitial thickening is similar to previous. There is mild bibasilar scarring/atelectasis. The lungs and pleural spaces are otherwise clear. No pneumothorax is seen. The skeletal structures are osteopenic. The bony thorax is grossly intact. IMPRESSION: Cardiomegaly with no acute cardiopulmonary abnormality. ACT 112: Negative or not required by law. Electronically signed by: Jean Paul Alicea M.D. 02/12/2023 12:06 AM PG Care Time/CCT Total # of Minutes Spent Total Time Spent with Patient: Total time spent is greater than 50% in coordination of care (as documented) at patient's floor/unit and/or counseling patient: Coding Level of Care Code 40841 INT INP/OBS CARE 2/55MIN Diagnoses Abdominal pain R10.30 Abdominal location: lower abdomen, unspecified Hypothyroidism (acquired) E03.9 Anxiety F41.9 (1) Abdominal pain Abdominal location: lower abdomen, unspecified Qualified Code(s): R10.30 - Lower abdominal pain, unspecified
[2023-02-12] MEDS ORDERED: ONDANSETRON INJ 2 MG/ML 2 ML VIAL IV PRN ×2 (01:32→02:47)
[2023-02-12] MEDS ORDERED: PROCHLORPERAZINE 5 MG in SYRINGE 4 ML IV PRN (01:32)
[2023-02-12] MEDS ORDERED: HYDROmorphone INJ 0.5 MG/0.5 ML SYR IV PRN ×2 (02:47)
[2023-02-12] MEDS ORDERED: LORazepam 0.5 MG TAB PO PRN (02:47)
[2023-02-12] MEDS ORDERED: LACTATED RINGER'S 1,000 ML IV SCH (02:47)
[2023-02-12 03:27] LABS: Calcium 8.4 mg/dl (8.6-10.3); Creatinine Clr Calc Pharmacy 55.6 ml/min; Est GFR (African American) 89.7 ml/min; Est GFR (Non-African American) 77.4 ml/min; Phosphorus 2.9 mg/dl (2.5-4.9); Potassium 3.7 mmol/L (3.5-5.1)
[2023-02-12] MEDS ORDERED: LEVOTHYROXINE SODIUM 100 MCG TABLET PO SCH (06:30)
--- NOTE | 2023-02-12 06:34 | CT Scan Report ---
Exam(s): CTA ABDOMEN + PELVIS With Contrast IV Amt: 116 ml EXAM: CT Angiography Abdomen and Pelvis With Intravenous Contrast CLINICAL HISTORY: Reason for exam: Lower pain with history of ischemic colitis. TECHNIQUE: Axial computed tomographic angiography images of the abdomen and pelvis with intravenous contrast. CTDI is 16.63 mGy and DLP is 726.27 mGy-cm. Automated exposure control was utilized for the study. A dose lowering technique was utilized adhering to the principles of ALARA. MIP reconstructed images were created and reviewed. CONTRAST: Patient received 116 ml of IV contrast COMPARISON: No relevant prior studies available. FINDINGS: VASCULATURE: Aorta: Atherosclerotic disease. No abdominal aortic aneurysm. No dissection. Celiac trunk and mesenteric arteries: No acute findings. No occlusion or significant stenosis. Renal arteries: No acute findings. No occlusion or significant stenosis. Iliac arteries: No acute findings. No occlusion or significant stenosis. Lung bases: Dependent scarring at the lung bases. No consolidation. ABDOMEN: Liver: Unremarkable. No mass. Gallbladder and bile ducts: Unremarkable. No calcified stones. No ductal dilation. Pancreas: Unremarkable. No ductal dilation. No mass. Spleen: Unremarkable. No splenomegaly. Adrenals: Unremarkable. No mass. Kidneys and ureters: Unremarkable. No hydronephrosis. No solid mass. Stomach and bowel: No evidence of bowel obstruction. Colonic diverticulosis. No evidence of diverticulitis. PELVIS: Appendix: No findings to suggest acute appendicitis. Bladder: Unremarkable. No mass. Reproductive: Unremarkable as visualized. ABDOMEN and PELVIS: Intraperitoneal space: Enteric anastomosis in the right hemiabdomen. No significant fluid collection. No free air. Bones/joints: No acute fracture. No dislocation. Degenerative changes in the spine. Soft tissues: Umbilical hernia containing fat. Lymph nodes: Unremarkable. No enlarged lymph nodes. IMPRESSION: 1. No evidence of pneumatosis, portal venous gas, or free air. 2. Enteric anastomosis in the right hemiabdomen. 3. No other acute findings. 4. Incidental findings as described. Electronically signed by: Alessandro Chapin MD 02/12/23 06:33 AM
--- NOTE | 2023-02-12 07:49 | Electrocardiogram Report ---
Test Reason : Blood Pressure : / mmHG Vent. Rate : 062 BPM Atrial Rate : 062 BPM P-R Int : 174 ms QRS Dur : 080 ms QT Int : 458 ms P-R-T Axes : 048 032 035 degrees QTc Int : 464 ms Normal sinus rhythm Normal ECG When compared with ECG of 14-JAN-2023 12:51, Premature ventricular complexes are no longer Present Nonspecific ST abnormality no longer present Confirmed by Valeriy Harmon ([id number]) on 02/12/2023 7:49:11 AM Referred By: REFERRED SELF Confirmed By:Valeriy Harmon
--- NOTE | 2023-02-12 08:02 | XRay Report ---
KUB HISTORY: Acute generalized abdominal pain pain COMPARISON: CTA today FINDINGS: Nonobstructive bowel gas pattern. No renal calculi. No ureteral calculi. No pneumoperitone um or pneumatosis. No fracture. IMPRESSION: Nonobstructive bowel gas pattern. ACT 112: Negative or not required by law. The above report was generated using voice recognition software. It may contain grammatical, syntax o r spelling errors. Electronically signed by: Alfonso Trent M.D. 02/12/2023 8:01 AM
[2023-02-12 09:12] LABS: BUN Creatinine Ratio 10.5 (10-20); Calcium 8.3 mg/dl (8.6-10.3); Creatinine Clr Calc Pharmacy 54.8 ml/min; Est GFR (African American) 88.3 ml/min; Est GFR (Non-African American) 76.2 ml/min; Potassium 4.1 mmol/L (3.5-5.1)
[2023-02-12 11:34] LABS: BUN Creatinine Ratio 10.7 (10-20); Calcium 8.6 mg/dl (8.6-10.3); Creatinine Clr Calc Pharmacy 55.6 ml/min; Est GFR (African American) 89.7 ml/min; Est GFR (Non-African American) 77.4 ml/min
[2023-02-12 14:35] LABS: Appearance Urine Clear (Clear); Bilirubin Urine Negative (Negative); Blood Urine Negative (Negative); Color Urine Dark Yellow; Glucose Urine UA Negative (Negative); Ketones Urine Negative (Negative); Leukocyte Esterase Urine Negative (Negative); Nitrite Urine Negative (Negative); Protein Urine Negative (Negative); Specific Gravity Urine 1.045 (1.000-1.030); Urobilinogen Urine Negative (Negative); pH Urine 8.5 (4.5-7.5)
--- NOTE | 2023-02-12 19:26 | Discharge Summary ---
Date of Service February 12, 2023 Admission HPI Per Admitting Provider Dr. Carmichael is a pleasant 77yo female with remote history of ischemic colitis in 2008, recently admitted to [facility] for SBO with exploratory laparotomy and small bowel resection performed on 12/27/22 presenting with abdominal pain. Patient reports that her bowels have not yet fully recovered from her surgery in December. She has been having episodes of severe abdominal pain as well as diarrhea and constipation. She has been taking milk of magnesium, Miralax and Fiber supplements. Patient was overall feeling well today. Around 17:00 she was making dinner when she developed severe, shooting abdominal pain which was similar to when she had ischemic colitis. The pain was severe, located in upper abdomen, lasted 2-3 hours then resolved. No associated nausea/vomiting or diarrhea. Pain was not related to a meal. No report of fever, chills, rigors. Her pain has improved with Toradol, Zofran has improved nausea. Still with discomfort, 4/10 in severity. Now more diffuse pain in abdomen. No BM or flatus since the pain started. In the ER she is afebrile, HD stable Principal Diagnosis Acute abdominal pain Discharge Exam PHYSICAL EXAMINATION Last 24h vital signs reviewed, see documentation in flowsheet General: comfortable appearing, no distress, sitting in bed has finished a tray with clear liquids HEENT: Normocephalic, atraumatic, pupils round and equal, sclerae anicteric, no conjunctival injection, moist mucus membranes Lungs: Normal respiratory effort. Heart: deferred Abdomen: Soft, nontender, nondistended. Bowel sounds present. midline laparotomy incision well-healed Extremities: Warm, dry, well-perfused. No extremity edema. Neuro: Alert and oriented x 4, face symmetric, moves 4 extremities well Psych: Normal affect and behavior Discharge Data Allergies Allergy/AdvReac Type Severity Reaction Status Date / Time nickel Allergy Intermediate Rash Verified 02/11/23 23:25 timolol Allergy Unknown Unknown Verified 02/11/23 23:25 Beta-Blockers AdvReac Severe SEVERE Verified 02/11/23 23:25 (Beta-Adrenergic Bloc HYPOTENSION Opioids - Morphine Analogues AdvReac Intermediate Vomiting Verified 02/11/23 23:25 Consultations 02/11/23 22:44 ED Decision to Admit Stat Ordered Studies 02/11/23 22:44 CT angio abdomen pelvis w con Stat Chest X-Ray 02/11/23 20:07 SINGLE VIEW CHEST CLINICAL HISTORY: Epigastric abdominal pain FINDINGS: An AP, portable, upright chest radiograph is compared to chest x-ray and chest CT dated 12/26/2022. The heart is enlarged noting atherosclerotic calcification of the thoracic aorta. The pulmonary vasculature is nondistended congested. Chronic interstitial thickening is similar to previous. There is mild bibasilar scarring/atelectasis. The lungs and pleural spaces are otherwise clear. No pneumothorax is seen. The skeletal structures are osteopenic. The bony thorax is grossly intact. IMPRESSION: Cardiomegaly with no acute cardiopulmonary abnormality. ACT 112: Negative or not required by law. Electronically signed by: Jean Paul Alicea M.D. 02/12/2023 12:06 AM KUB X-Ray 02/11/23 20:51 KUB HISTORY: Acute generalized abdominal pain pain COMPARISON: CTA today FINDINGS: Nonobstructive bowel gas pattern. No renal calculi. No ureteral calculi. No pneumoperitoneum or pneumatosis. No fracture. IMPRESSION: Nonobstructive bowel gas pattern. ACT 112: Negative or not required by law. The above report was generated using voice recognition software. It may contain grammatical, syntax or spelling errors. Electronically signed by: Alfonso Trent M.D. 02/12/2023 8:01 AM Abdomen/Pelvis CTA 02/11/23 22:44 Exam(s): CTA ABDOMEN + PELVIS With Contrast IV Amt: 116 ml EXAM: CT Angiography Abdomen and Pelvis With Intravenous Contrast CLINICAL HISTORY: Reason for exam: Lower pain with history of ischemic colitis. TECHNIQUE: Axial computed tomographic angiography images of the abdomen and pelvis with intravenous contrast. CTDI is 16.63 mGy and DLP is 726.27 mGy-cm. Automated exposure control was utilized for the study. A dose lowering technique was utilized adhering to the principles of ALARA. MIP reconstructed images were created and reviewed. CONTRAST: Patient received 116 ml of IV contrast COMPARISON: No relevant prior studies available. FINDINGS: VASCULATURE: Aorta: Atherosclerotic disease. No abdominal aortic aneurysm. No dissection. Celiac trunk and mesenteric arteries: No acute findings. No occlusion or significant stenosis. Renal arteries: No acute findings. No occlusion or significant stenosis. Iliac arteries: No acute findings. No occlusion or significant stenosis. Lung bases: Dependent scarring at the lung bases. No consolidation. ABDOMEN: Liver: Unremarkable. No mass. Gallbladder and bile ducts: Unremarkable. No calcified stones. No ductal dilation. Pancreas: Unremarkable. No ductal dilation. No mass. Spleen: Unremarkable. No splenomegaly. Adrenals: Unremarkable. No mass. Kidneys and ureters: Unremarkable. No hydronephrosis. No solid mass. Stomach and bowel: No evidence of bowel obstruction. Colonic diverticulosis. No evidence of diverticulitis. PELVIS: Appendix: No findings to suggest acute appendicitis. Bladder: Unremarkable. No mass. Reproductive: Unremarkable as visualized. ABDOMEN and PELVIS: Intraperitoneal space: Enteric anastomosis in the right hemiabdomen. No significant fluid collection. No free air. Bones/joints: No acute fracture. No dislocation. Degenerative changes in the spine. Soft tissues: Umbilical hernia containing fat. Lymph nodes: Unremarkable. No enlarged lymph nodes. IMPRESSION: 1. No evidence of pneumatosis, portal venous gas, or free air. 2. Enteric anastomosis in the right hemiabdomen. 3. No other acute findings. 4. Incidental findings as described. Electronically signed by: Alessandro Chapin MD 02/12/23 06:33 AM Hospital Course (1) Abdominal pain: 77yo female with history of ischemic colitis in 2008, SBO s/p bowel resection performed on 12/27/22 presenting with abdominal pain and nausea. Labs with mild anion gap of 13 and serum HCO3 of 20. Lactate is within normal range. -CBC, CMP, lipase and serial lactate were unremarkable -CTA of the abdomen with IV contrast was obtained and there were no acute or otherwise notable findings. -Abdominal pain improved to her recent baseline and she was able to advance to low fiber diet She has an appointment with [facility] to evaluate her worsening bowel symptoms following the SBO and ex lap in December. She continues to have frequent abdominal pain and constipation alternating with diarrhea. We discussed various dietary regimens and typical medications for IBS type symptoms, which she has tried. She feels she is back to near her baseline and able to return home this evening. She has recurrent cystitis, is on macrobid prophylaxis, UA was negative (2) Hypothyroidism (acquired): Chronic. Stable -Continue Synthroid (3) Anxiety: Chronic. -Continue Sertraline -Ativan PRN Total Time Total Time Spent Total Time Spent (In Minutes): I personally spent: 35 minutes on clinical care activities and coordinating care for discharge reviewing chart notes and vital signs reviewing labs reviewing studies examining and counseling the patient writing orders documentation in addition to time spent by Dr. Wilder on admission earlier this morning Discharge Plan Discharge Items Patient Disposition: Home - Self-Care Reason For Visit: ABDOMINAL PAIN Discharge Diagnosis: Abdominal pain Activity: Resume your previous activity Non-emergency contact: Primary Care Provider and Slip Seat Coverer Call non-emergency contact if: you have any medication questions, your symptoms worsen and you have a fever Follow-up/Referrals: Carlos Soliman MD [Primary Care Provider] - Diet: Low Fiber Addtl Attending Provider Instructions: Dear Dr. Carmichael, You had an episode of severe abdominal pain. We did not determine a specific cause, however, it seems to have resolved. CT Angiogram of abdomen and pelvis was negative for obstruction or other acute findings. Try starting on a low residue diet and gradually work back to how you were eating before. It was a pleasure taking care of you in the hospital. Nicole Olsen MD Pending Studies at Discharge: Yes (urinalysis) Stand-Alone Forms: My [facility], Smoking Cessation Medications and DC Order Prescriptions: Continued nitrofurantoin macrocrystal 100 mg capsule 100 mg PO HS Qty: 90 1RF Rx Instructions: must administer with a meal/food levothyroxine [Synthroid] 100 mcg tablet 100 mcg PO QAM tafluprost (PF) [Zioptan (PF)] 0.0015 % dropperette 1 drp OPL HS Rocklatan 0.02-0.005 % drops 1 drp OPR HS sertraline 25 mg tablet 25 mg PO HS estradiol 0.5 mg tablet 0.5 mg PO Q7D Rx Instructions: Tuesday estradiol 0.01 % (0.1 mg/gram) cream 1 g VAGINAL 2XWK Ased Eye Drops 1 drp OPB HS Rx Instructions: Special compound for the patient, uses PRIOR to using other two eye drops. acetaminophen [Tylenol Extra Strength] 500 mg Tablet 1,000 mg PO Q8H PRN (Reason: pain) Qty: 0 0RF lorazepam 0.5 mg Tablet 0.5 mg PO HS PRN (Reason: sleep) Qty: 20 0RF codeine sulfate 30 mg Tablet 15 mg PO Q6H PRN (Reason: pain) Qty: 20 0RF Probiotic 3 billion cell Capsule 0 mmu cells PO DAILY Rx Instructions: administer with a meal Discharge Orders: Discharge Order (Routine); Ordered 02/12/23 Ordered By: Nicole Olsen Admission Data Admit Date/Time: 02/12/23 01:02 Attending Provider: Nicole Olsen Admit Provider: Va Wilder Primary Care Provider: Carlos Soliman Other Providers: Va Wilder Other Interventions: Discharge Summary Assessment (RN) Last Done: 02/12/23 16:06 Coding Level of Care Code INP/OBS EV SAME DAY LV 2,70MIN Diagnoses Abdominal pain R10.30 Abdominal location: lower abdomen, unspecified Hypothyroidism (acquired) E03.9 Anxiety F41.9
[2023-02-12] MEDS ORDERED: nitrofurantoin macrocrystaL 50 MG CAP PO SCH (21:00)
[2023-02-12] MEDS ORDERED: SERTRALINE HCL 50 MG TABLET PO SCH (21:00)
== END 2023-02-12 18:13 | disposition home or self-care (01) ==
LOC: ED 19:42 → 3E 19:42 → SUATTDRO 02-12 01:02 → 3E 02-12 02:20